=== PATIENT | female | born 1985 | race Caucasian/White ===

== ENCOUNTER 2019-12-29 12:57 | Outpatient (REF) | payer OTHER, SELFPAY ==
[2019-12-29 13:29] LABS: MANUAL DIFF FLAG NO
[2019-12-29 13:38] LABS: Basophils Absolute Auto 0.1 X10*3/uL (0.0-0.2); Basophils Percent Auto 0.6 % (0-2); Eosinophils Absolute Auto 0.2 X10*3/uL (0.0-0.4); Eosinophils Percent Auto 2.1 % (0-4); Hematocrit 39.8 % (37-47); Imm Gran Abs Auto 0.02 X10*3/uL (0.00-0.03); Imm Gran Pct Auto 0.2 % (0.0-0.4); Lymphocytes Absolute Auto 2.1 X10*3/uL (1.2-4.9); Lymphocytes Percent Auto 24.9 % (20-40); Mean Corpuscular HGB Conc 32.7 g/dl (31.0-35.0); Mean Corpuscular Hemoglobin 28.2 pg (27.0-33.0); Mean Corpuscular Volume 86.3 fL (80-98); Monocytes Absolute Auto 0.6 X10*3/uL (0.1-1.2); Monocytes Percent Auto 7.1 % (2-11); Neutrophils Absolute Auto 5.6 X10*3/uL (2.0-8.3); Neutrophils Percent Auto 65.1 % (45-73); Platelet Count 343 X10*3/uL (160-400); Red Blood Count 4.61 X10*6/uL (4.20-5.50); Red Cell Distribution Width 12.6 % (11.0-16.0); White Blood Count 8.6 X10*3/uL (4.8-10.8)
[2019-12-29 13:47] LABS: Alanine Aminotransferase 25 U/L (0-31); Albumin Level 4.2 g/dL (3.5-5.0); Alkaline Phosphatase 69 U/L (39-117); Anion Gap 10 (12-20); Aspartate Amino Transferase 20 U/L (5-31); Blood Urea Nitrogen 8 mg/dL (9-16); Calcium 8.8 mg/dL (8.4-10.2); Carbon Dioxide 26 mmol/L (22-29); Chloride 105 mmol/L (96-108); Cholesterol 156 mg/dL; Estimated Glomerular Filt Rate > 60; Glucose Random 89 mg/dL (60-115); HDL Cholesterol 40 mg/dL; LDL Cholesterol Calculated 103 mg/dl; Potassium 4.3 mmol/l (3.3-5.1); Sodium 137 mmol/L (135-145); Triglycerides 68 mg/dL
[2019-12-29 14:12] LABS: Thyroid Stimulating Hormone 3.25 mIU/mL (0.32-4.0)
== END 2019-12-29 12:58 | disposition home or self-care (01) ==
LOC: HO.LAB 12:57
PROVIDERS: PCP Internal Medicine; Visit Provider Internal Medicine
DX: Z00.00 Encounter for general adult medical examination without abnormal findings (principal); Z13.31 Encounter for screening for depression; E66.01 Morbid (severe) obesity due to excess calories; E89.0 Postprocedural hypothyroidism
CPT/HCPCS: 36415; 80053; 80061; 84443; 85025

== ENCOUNTER 2020-01-13 15:11 | Outpatient (REF) | payer OTHER, SELFPAY | END 2020-01-13 15:12 | disposition home or self-care (01) | LOC: HO.LAB 15:11 | PROVIDERS: Visit Provider Internal Medicine | DX: Z13.89 Encounter for screening for other disorder (principal) ==

== ENCOUNTER 2020-02-13 16:34 | Outpatient (REF) | payer OTHER, SELFPAY ==
[2020-02-13 17:55] LABS: Free T4 (Free Thyroxine) 1.06 ng/dL (0.71-1.85); HCG Quantitative 78 mIU/mL
[2020-02-19 00:22] LABS: FT4 by Equilib. Dialysis 1.5 ng/dL (0.9-2.2)
== END 2020-02-13 16:35 | disposition home or self-care (01) ==
LOC: HO.LAB 16:34
PROVIDERS: PCP Internal Medicine; Visit Provider Internal Medicine Endocrinology, Diabetes & Metabolism
DX: E03.9 Hypothyroidism, unspecified (principal)
CPT/HCPCS: 84439; 84443; 84702

== ENCOUNTER → 2020-02-14 10:29 | Outpatient (BNVA) | payer OTHER, SELFPAY | PROVIDERS: PCP Internal Medicine; Visit Provider Internal Medicine Endocrinology, Diabetes & Metabolism | DX: Z76.89 Persons encountering health services in other specified circumstances (principal) ==

== ENCOUNTER 2020-02-15 15:54 | Outpatient (REF) | payer OTHER, SELFPAY ==
[2020-02-15 17:11] LABS: HCG Quantitative 125 mIU/mL
== END 2020-02-15 15:55 | disposition home or self-care (01) ==
LOC: HO.LAB 15:54
PROVIDERS: PCP Internal Medicine; Visit Provider Internal Medicine
DX: Z32.01 Encounter for pregnancy test, result positive (principal); R11.0 Nausea
CPT/HCPCS: 84702

== ENCOUNTER → 2020-02-21 10:49 | Outpatient (BNVA) | payer OTHER, SELFPAY | PROVIDERS: PCP Internal Medicine; Visit Provider Advanced Practice Midwife | DX: Z76.89 Persons encountering health services in other specified circumstances (principal) ==

== ENCOUNTER 2020-02-22 15:46 | Outpatient (REF) | payer OTHER, SELFPAY ==
[2020-02-22 16:42] LABS: COVID-19 Test Negative (Negative); IDNOW Serial# 55D5AD1C
== END 2020-02-22 15:47 | disposition home or self-care (01) ==
LOC: HO.EMPCOV 15:46
PROVIDERS: Visit Provider Internal Medicine
DX: Z20.828 Contact with and (suspected) exposure to other viral communicable diseases (principal)
CPT/HCPCS: 87635; C9803

== ENCOUNTER 2020-03-02 13:51 | Outpatient (REF) | payer OTHER, SELFPAY ==
[2020-03-02 14:59] LABS: COVID-19 Test Negative (Negative)
== END 2020-03-02 13:52 | disposition home or self-care (01) ==
LOC: HO.LAB 13:51
PROVIDERS: PCP Internal Medicine; Visit Provider Internal Medicine
DX: Z20.828 Contact with and (suspected) exposure to other viral communicable diseases (principal)
CPT/HCPCS: 87635; C9803

== ENCOUNTER 2020-03-09 14:55 | Outpatient (RCR) | payer OTHER, SELFPAY ==
[2020-03-14 09:06] LABS: SARS-COV-2 PCR UMBRL Not Detected
[2020-03-27 09:51] LABS: SARS-COV-2 PCR UMBRL Not Detected
[2020-04-04 09:51] LABS: SARS-COV-2 PCR UMBRL NOT DETECTED
[2020-04-09 08:57] LABS: SARS-COV-2 PCR UMBRL NEGATIVE
[2020-04-13 11:04] LABS: SARS-COV-2 PCR UMBRL NEGATIVE
== END 2020-04-11 15:00 | disposition home or self-care (01) ==
LOC: HO.EMPCOV 14:55
PROVIDERS: Visit Provider Internal Medicine
DX: Z13.89 Encounter for screening for other disorder (principal)
CPT/HCPCS: 36415; 87635; C9803; U0003

== ENCOUNTER 2020-03-13 03:18 | Emergency (ER) | payer OTHER, SELFPAY ==
[2020-03-13 03:35] VITALS: BP 135/75; PULSE 79; RESP 18; TEMP 37; O2SAT 98; BMI 39.8
--- NOTE | 2020-03-13 04:00 | US_ITS ---
EXAMINATION: ULTRASOUND FIRST TRIMESTER CLINICAL INFORMATION: Vaginal bleeding. Threatened . COMPARISON: 08/10/2019. TECHNIQUE: Transabdominal and transvaginal imaging of the pelvis was performed. Transvaginal imaging was performed for further evaluation of the endometrium and adnexa. FINDINGS: A normal gravid uterus is identified. A single living intrauterine gestation is identified with a crown-rump length of 17 mm corresponding to 8 weeks 2 days. This is concordant with the age by dates of 8 weeks to days for an BAYLEE of 10/21/2020. A normal heart rate of 170 beats per minute is identified. Both ovaries are of normal size and echogenicity. The right measures 3.3 x 2.0 x 1.9 cm. This measurement includes an approximately 19 mm corpus luteum. The left measures 3.6 x 2.6 x 2.4 cm. This measurement includes an approximately 2 cm cyst. There is no pelvic free fluid. There is trace free fluid within the cervix. US/US OB <= 14 weeks fetus IMPRESSION: Normal single living intrauterine gestation with an BAYLEE of 10/21/2020..
[2020-03-13 04:04] LABS: UPreg QC Valid YES; Urine Pregnancy POSITIVE (NEGATIVE)
[2020-03-13 04:05] LABS: Appearance Urine CLEAR; Color Urine YELLOW; Glucose Urine UA NEG (NEG); Leukocyte Esterase Urine NEG (NEG); Nitrite Urine NEG (NEG); Specific Gravity - Urine 1.015 (1.005-1.025); Urine Blood 3+ (NEG); Urine Ketones NEG (NEG); Urine Protein NEG (NEG-TRACE)
[2020-03-13 04:12] LABS: Bacteria Urine TRACE /LPF; Squamous Epithelial Cell Urine 2+ /LPF; WBC Urine 0-2 /HPF (0-4)
[2020-03-13 04:54] LABS: Basophils Percent Auto 0.3 % (0-2); Eosinophils Absolute Auto 0.2 X10*3/uL (0.0-0.4); Eosinophils Percent Auto 1.7 % (0-4); Hematocrit 34.7 % (37-47); Imm Gran Abs Auto 0.04 X10*3/uL (0.00-0.03); Imm Gran Pct Auto 0.3 % (0.0-0.4); Lymphocytes Absolute Auto 1.9 X10*3/uL (1.2-4.9); Lymphocytes Percent Auto 14.4 % (20-40); MANUAL DIFF FLAG NO; Mean Corpuscular HGB Conc 34.6 g/dl (31.0-35.0); Mean Corpuscular Hemoglobin 28.6 pg (27.0-33.0); Mean Corpuscular Volume 82.8 fL (80-98); Mean Platelet Volume 11.2 fL (9.4-12.3); Monocytes Percent Auto 7.6 % (2-11); Neutrophils Percent Auto 75.7 % (45-73); Platelet Count 282 X10*3/uL (160-400); Red Blood Count 4.19 X10*6/uL (4.20-5.50); Red Cell Distribution Width 12.3 % (11.0-16.0); White Blood Count 13.2 X10*3/uL (4.8-10.8)
--- NOTE | 2020-03-13 05:05 | ED.FEMALEGU ---
HPI - Female Genitourinary General Chief complaint: Vaginal Bleeding Stated complaint: 8 weeks /bleeding Time Seen by Provider: 03/13/20 03:55 Source: patient Mode of arrival: ambulatory Limitations: no limitations History of Present Illness HPI Narrative: Patient 8 weeks no ultrasound done yet primi complaining of spotting when she wipes since last night with lower abdominal cramps. No dysuria. No history of miscarriages patient's blood type is O-positive MD elicited complaint: vaginal bleeding (Spotting) Onset (ago): hour(s) Severity: mild Quality of pain: cramping Vaginal discharge: none Vaginal bleeding: scant Exacerbating factors: none Relieving factors: none Associated symptoms: abdominal pain (Cramping) Related Data Previous Rx's Medication Instructions Recorded levothyroxine 112 mcg tablet 112 mcg PO DAILY 90 Days #90 tab 02/14/20 Allergies Allergy/AdvReac Type Severity Reaction Status Date / Time No Known Allergies Allergy Unverified 12/08/19 19:15 [No Known Allergies*] Review of Systems Review of Systems: Constitutional : No Weight loss, No Fever, No Chills ENT/Mouth : No sore throat, No Rhinorrhea Eyes: No Eye Pain, No Swelling Cardiovascular : No Chest Pain, no Dyspnea on Exertion, No Orthopnea, No Edema, No Palpitations, no SOB Respiratory : No Cough, No Sputum Gastrointestinal : no Nausea, No Vomiting, No Diarrhea, No Hematochezia, No Melena Genitourinary : No Dysuria, No Urinary Frequency Musculoskeletal : No joint pain, No Myalgias, No Joint Swelling Skin : No Skin Lesions, No rash Neuro : No Weakness, No Numbness, No Dizziness, No Headache Psych : No Anxiety/Panic, No Depression Heme/Lymph: No Bruising, No Lymphadenopathy Endocrine : No Polyuria, No Polydipsia All other systems reviewed and are negative PMFSH Past Medical History Medical History Elevated prolactin level History of Graves' disease Hypothyroidism Obesity Postablative hypothyroidism Vitamin D deficiency Surgical History Hx of cholecystectomy Family History Family History Father Hypertension Mother Thyroid disease Social History Social History Smoking Status: Never smoker Use of substances other than those prescribed or required for medical reasons: No Advance Directives: No Advance Directives Information Provided: No Physical Exam Vital Signs: Vital Signs: Last Vital Signs Temp 98.6 F 03/13/20 03:35 Pulse 79 03/13/20 03:35 Resp 18 03/13/20 03:35 BP 135/75 03/13/20 03:35 Pulse Ox 98 03/13/20 03:35 Body Mass Index 39.8 Appearance: Alert. Oriented X3. No acute distress. Eyes: Pupils equal, round and reactive to light. ENT: Pharynx normal. Neck: Normal inspection. Neck supple. CVS: Normal heart rate and rhythm. Pulses normal. Respiratory: No respiratory distress. Breath sounds normal. Abdomen: Soft and nontender. Bowel sounds are present, no mass palpable, no CVA tenderness Skin: Skin warm and dry. Normal skin color. Normal skin turgor. Extremities: No lower extremity edema. Neuro: Oriented X 3. No motor deficit. No sensory deficit. MDM - Female Genitourinary MDM Narrative Medical decision making narrative: Patient ultrasound showed IUP with normal heart beats small ovarian cyst both sites will discharge patient home advised to follow-up with OBG Differential Diagnosis Differential diagnosis: Likely urinary tract infection Lab Data Attestation: I reviewed the patient's lab results. Result diagrams: 03/13/20 04:47 03/13/20 04:47 Labs: Lab Results 03/13/20 03/13/20 03/13/20 Range/Units 03:58 04:47 04:47 WBC 13.2 H (4.8-10.8) X10*3/uL RBC 4.19 L (4.20-5.50) X10*6/uL Hgb 12.0 (12.0-16.0) g/dl Hct 34.7 L (37-47) % MCV 82.8 (80-98) fL MCH 28.6 (27.0-33.0) pg MCHC 34.6 (31.0-35.0) g/dl RDW 12.3 (11.0-16.0) % Plt Count 282 (160-400) X10*3/uL MPV 11.2 (9.4-12.3) fL Immature Gran % (Auto) 0.3 (0.0-0.4) % Neut % (Auto) 75.7 H (45-73) % Lymph % (Auto) 14.4 L (20-40) % [place] % (Auto) 7.6 (2-11) % Eos % (Auto) 1.7 (0-4) % Baso % (Auto) 0.3 (0-2) % Lymph # (Auto) 1.9 (1.2-4.9) X10*3/uL [place] # (Auto) 1.0 (0.1-1.2) X10*3/uL Eos # (Auto) 0.2 (0.0-0.4) X10*3/uL Baso # (Auto) 0.0 (0.0-0.2) X10*3/uL Abs Immat Gran (auto) 0.04 H (0.00-0.03) X10*3/uL Absolute Neuts (auto) 10.0 H (2.0-8.3) X10*3/uL Absolute Nucleated RBC 0.000 (0.0-0.012) X10*3/uL Nucleated RBC % (auto) 0.0 (0.0-0.2) /100WBC Sodium 135 (135-145) mmol/L Potassium 3.8 (3.3-5.1) mmol/l Chloride 105 (96-108) mmol/L Carbon Dioxide 21 L (22-29) mmol/L Anion Gap 13 (12-20) BUN 10 (9-16) mg/dL Creatinine 0.64 (0.5-1.4) mg/dL Estim Creat Clear Calc 138.6 Estimated GFR > 60 Random Glucose 98 (60-115) mg/dL Calcium 8.9 (8.4-10.2) mg/dL Beta HCG, Quant 84585 mIU/mL Urine Color YELLOW Urine Appearance CLEAR Urine pH 6.0 (5.0-8.0) Ur Specific [place] 1.015 (1.005-1.025) Urine Protein NEG (NEG-TRACE) MG/DL Urine Glucose (UA) NEG (NEG) MG/DL Urine Ketones NEG (NEG) MG/DL Urine Blood 3+ H (NEG) Urine Nitrite NEG (NEG) Ur Leukocyte Esterase NEG (NEG) Urine RBC 1-4 (0) /HPF Urine WBC 0-2 (0-4) /HPF Ur Squamous Epith Cells 2+ /LPF Urine Bacteria TRACE /LPF Urine Test POSITIVE H (NEGATIVE) Discharge Plan Discharge Clinical Impression: Threatened Ovarian cyst Qualifiers: Laterality: bilateral Qualified Code(s): N83.201 - Unspecified ovarian cyst, right side Patient Disposition: Home, Self-Care Instructions: Threatened Miscarriage (ED) Additional Instructions: Rest at home. Follow with OBG. Report to the ED/OB if increased vaginal bleed Tylenol for cramps Prescriptions: No Action levothyroxine 112 mcg tablet 112 mcg PO DAILY 90 Days Qty: 90 RF: 1 Stand Alone Forms: Work/School Release
[2020-03-13 05:27] LABS: Anion Gap 13 (12-20); Blood Urea Nitrogen 10 mg/dL (9-16); Calcium 8.9 mg/dL (8.4-10.2); Carbon Dioxide 21 mmol/L (22-29); Chloride 105 mmol/L (96-108); Creatinine Clr Calc Pharmacy 138.6; Estimated Glomerular Filt Rate > 60; Glucose Random 98 mg/dL (60-115); Potassium 3.8 mmol/l (3.3-5.1); Sodium 135 mmol/L (135-145)
--- NOTE | 2020-03-13 06:24 | US_ITS ---
EXAMINATION: ULTRASOUND FIRST TRIMESTER CLINICAL INFORMATION: Vaginal bleeding. Threatened . COMPARISON: 08/10/2019. TECHNIQUE: Transabdominal and transvaginal imaging of the pelvis was performed. Transvaginal imaging was performed for further evaluation of the endometrium and adnexa. FINDINGS: A normal gravid uterus is identified. A single living intrauterine gestation is identified with a crown-rump length of 17 mm corresponding to 8 weeks 2 days. This is concordant with the age by dates of 8 weeks to days for an BAYLEE of 10/21/2020. A normal heart rate of 170 beats per minute is identified. Both ovaries are of normal size and echogenicity. The right measures 3.3 x 2.0 x 1.9 cm. This measurement includes an approximately 19 mm corpus luteum. The left measures 3.6 x 2.6 x 2.4 cm. This measurement includes an approximately 2 cm cyst. There is no pelvic free fluid. There is trace free fluid within the cervix. US/US OB transvaginal IMPRESSION: Normal single living intrauterine gestation with an BAYLEE of 10/21/2020..
== END 2020-03-13 07:12 | disposition home or self-care (01) ==
PROVIDERS: Emergency Provider Internal Medicine; PCP Internal Medicine
DX: O20.0 Threatened abortion (principal); N83.201 Unspecified ovarian cyst, right side; Z3A.08 8 weeks gestation of pregnancy
CPT/HCPCS: 36415; 76801; 76817; 80048; 81001; 81025; 84702; 85025; 99284

== ENCOUNTER 2020-03-21 16:08 | Outpatient (REF) | payer OTHER, SELFPAY ==
[2020-03-21 17:23] LABS: Thyroid Stimulating Hormone 0.53 uIU/mL (0.32-4.0); Vitamin D 25-OH Total 25.9 ng/mL (>30)
[2020-03-22 22:32] LABS: Prolactin Undiluted 32.1 ng/mL
[2020-03-26 05:37] LABS: FT4 by Equilib. Dialysis 1.5 ng/dL (0.9-2.2)
== END 2020-03-21 16:09 | disposition home or self-care (01) ==
LOC: HO.LAB 16:08
PROVIDERS: PCP Internal Medicine Endocrinology, Diabetes & Metabolism; Visit Provider Internal Medicine Endocrinology, Diabetes & Metabolism
DX: E03.9 Hypothyroidism, unspecified (principal); E55.9 Vitamin D deficiency, unspecified; R79.89 Other specified abnormal findings of blood chemistry
CPT/HCPCS: 82306; 84146; 84439; 84443

== ENCOUNTER 2020-03-27 10:10 | Outpatient (REF) | payer OTHER, SELFPAY ==
[2020-03-27 16:52] LABS: MANUAL DIFF FLAG NO
[2020-03-27 16:55] LABS: Basophils Percent Auto 0.1 % (0-2); Eosinophils Absolute Auto 0.2 X10*3/uL (0.0-0.4); Eosinophils Percent Auto 1.4 % (0-4); Hematocrit 38.5 % (37-47); Hemoglobin 12.7 g/dl (12.0-16.0); Imm Gran Abs Auto 0.05 X10*3/uL (0.00-0.03); Imm Gran Pct Auto 0.4 % (0.0-0.4); Lymphocytes Absolute Auto 2.2 X10*3/uL (1.2-4.9); Lymphocytes Percent Auto 19.6 % (20-40); Mean Corpuscular Hemoglobin 28.3 pg (27.0-33.0); Mean Corpuscular Volume 85.9 fL (80-98); Mean Platelet Volume 10.9 fL (9.4-12.3); Monocytes Absolute Auto 0.8 X10*3/uL (0.1-1.2); Monocytes Percent Auto 7.2 % (2-11); Neutrophils Absolute Auto 8.2 X10*3/uL (2.0-8.3); Neutrophils Percent Auto 71.3 % (45-73); Platelet Count 311 X10*3/uL (160-400); Red Blood Count 4.48 X10*6/uL (4.20-5.50); Red Cell Distribution Width 12.2 % (11.0-16.0); White Blood Count 11.5 X10*3/uL (4.8-10.8)
[2020-03-27 18:13] LABS: Amphetamine Screen Urine Not Detected (Not Detect); Barbiturates, Urine Not Detected (Not Detect); Benzodiazepines Screen Urine Not Detected (Not Detect); Cannabinoid Screen Urine Not Detected (Not Detect); Cocaine Screen Urine Not Detected (Not Detect); Opiate Screen Urine Not Detected (Not Detect); Phencyclidine Screen Urine Not Detected (Not Detect)
[2020-03-28 04:15] LABS: Syphilis Screen Nonreactive (Nonreactive)
[2020-03-28 04:24] LABS: HIV AB/AG Nonreactive (Nonreactive); HIV Num 1 0.12 S/CO (0.00-0.99); ~HepC Num1 0.05 S/CO (0.00-0.79); ~Hepatitis C Antibody Nonreactive (Nonreactive)
[2020-03-28 04:31] LABS: HBsAGNum1 0.21 S/CO (0.00-0.99); Hepatitis B Surface Antigen Negative (Negative)
[2020-03-29 12:33] LABS: Rubella IgG Antibody 2.92 Index
== END 2020-03-27 10:11 | disposition home or self-care (01) ==
LOC: HO.LAB 10:10
PROVIDERS: PCP Internal Medicine; Visit Provider Advanced Practice Midwife
DX: O09.511 Supervision of elderly primigravida, first trimester (principal); O99.281 Endocrine, nutritional and metabolic diseases complicating pregnancy, first trimester; E03.9 Hypothyroidism, unspecified; Z3A.10 10 weeks gestation of pregnancy; Z79.899 Other long term (current) drug therapy
CPT/HCPCS: 80307; 85025; 86762; 86780; 86787; 86803; 86850; 86900; 86901; 87086; 87340; 87389; 99212

== ENCOUNTER 2020-04-03 10:29 | Outpatient (REF) | payer OTHER, SELFPAY ==
[2020-04-04 12:27] LABS: BV Int Neg Control Negative (Negative); BV Int Pos Control Positive (Positive)
[2020-04-05 18:52] LABS: C. trachomatis RNA TMA NOT DETECTED (NOT DETECTED); N. gonorrhoeae RNA TMA NOT DETECTED (NOT DETECTED)
== END 2020-04-03 10:30 | disposition home or self-care (01) ==
LOC: HO.LAB 10:29
PROVIDERS: PCP Internal Medicine; Visit Provider Advanced Practice Midwife
DX: Z34.01 Encounter for supervision of normal first pregnancy, first trimester (principal)
CPT/HCPCS: 36415; 81003; 87480; 87491; 87510; 87591; 87660; 99212

== ENCOUNTER 2020-04-06 09:28 | Outpatient (REF) | payer OTHER, SELFPAY ==
--- NOTE | 2020-04-06 09:35 | US_ITS ---
EXAMINATION: OBSTETRICAL ULTRASOUND, FIRST TRIMESTER HISTORY: 34-year-old at 11.5 weeks of gestation NT screening COMPARISON: 03/13/2020 TECHNIQUE: Real time transabdominal imaging with color and M-mode Doppler. FINDINGS: A single, live IUP CRL of 49.2 mm c/w 11.5wks is noted. Heart Rate: 155 beats per minute. Normal yolk sac seen. NT was 1.4.mm. NB Present The embryo appears sonographically wnl for this GA. Both maternal ovaries are seen and appear normal. GESTATIONAL AGE: 1. Established GA: 11.5 wks 2. GA from [facility]: 11.5 wks ESTIMATED DATE OF DELIVERY: 1. Established BAYLEE: 10/21/2020 2. BAYLEE from A: 10/21/2020 US/US OB 1T nuc measure IMPRESSION: 1. A single live IUP 2. Size equals dates 3. NT of 1.4 mm MFM Consultation: I reviewed the ultrasound findings along with significance of NT measurement. The NT of less than 3mm is generally reassuring. However, the sensitivity for T21 detection is only 60%. I reviewed the availability of serum aneuploidy screening which includes cell-free DNA and placental protein based tests. I discussed the sensitivity, false-positive rate, and other limitations associated with each test. I also reviewed the availability of invasive diagnostic tests that are associated small but definite risk of miscarriage. We also reviewed the differences between screening tests and diagnostic tests. After our discussion, she opted for the First trimester screening that is based on cell-free DNA or non-invasive testing (NIPT). Her hypothyroidism is currently well controlled on Levoxyl. Her TFTs should be monitored approximately every month. The result will be faxed to your office in approximately 7 days. A follow up at 18 weeks for survey has been scheduled. Thank you very much for this referral. Total time 30 min. (3,20,7)
[2020-04-06 12:59] LABS: Glucose 1 Hour PP 50gm Dose 104 mg/dL (60-140)
[2020-04-08 10:30] LABS: C. trachomatis RNA TMA NOT DETECTED
[2020-04-08 10:31] LABS: N. gonorrhoeae RNA TMA NOT DETECTED
== END 2020-04-06 09:29 | disposition home or self-care (01) ==
LOC: HO.US 09:28
PROVIDERS: PCP Internal Medicine; Visit Provider Advanced Practice Midwife
DX: O09.521 Supervision of elderly multigravida, first trimester (principal); Z3A.11 11 weeks gestation of pregnancy
CPT/HCPCS: 36415; 76813; 87491; 87591

== ENCOUNTER 2020-04-16 16:13 | Outpatient (REF) | payer OTHER, SELFPAY ==
[2020-04-16 18:26] LABS: Free T4 (Free Thyroxine) 1.05 ng/dL (0.71-1.85); Thyroid Stimulating Hormone 0.43 uIU/mL (0.32-4.0)
== END 2020-04-16 16:14 | disposition home or self-care (01) ==
LOC: HO.LAB 16:13
PROVIDERS: PCP Internal Medicine; Visit Provider Internal Medicine Endocrinology, Diabetes & Metabolism
DX: E89.0 Postprocedural hypothyroidism (principal)
CPT/HCPCS: 36415; 84439; 84443

== ENCOUNTER → 2020-04-24 09:59 | Outpatient (BNVA) | payer OTHER, SELFPAY | PROVIDERS: PCP Internal Medicine; Referring Provider Internal Medicine; Visit Provider Internal Medicine Endocrinology, Diabetes & Metabolism ==

== ENCOUNTER → 2020-05-01 10:29 | Outpatient (BNVA) | payer OTHER, SELFPAY | PROVIDERS: PCP Internal Medicine; Visit Provider Advanced Practice Midwife | DX: Z34.00 Encounter for supervision of normal first pregnancy, unspecified trimester (principal) | CPT/HCPCS: 81003; 99212 ==

== ENCOUNTER 2020-05-25 10:44 | Outpatient (REF) | payer OTHER, SELFPAY ==
--- NOTE | ~2020-05-25 | US_ITS ---
EXAMINATION: US OBSTETRICAL CLINICAL INFORMATION: 34-year-old at 18.5 weeks of gestation AMA Screening for anomaly COMPARISON: 04/06/2020 TECHNIQUE: Real-time transabdominal ultrasound was performed using C1-5 megahertz transducer. FINDINGS: A single, active, fetus is seen in vertex presentation. The placenta is posterior without previa, and the amniotic fluid volume is wnl. MEASUREMENTS: 1. Biparietal Diameter: 4.32 cm; 19.1 wks 2. Occipital Frontal Diameter: 5.9 cm 3. Head Circumference: 16.6 cm; 19.2 wks 4. Abdominal Circumference: 14.2 cm; 19.4 wks 5. Femur Length: 2.9 cm; 18.6 wks 6. Humerus Length: 2.9 cm; 19.3 wks 7. Tibia Length: 2.6 cm; 19.3 wks 8. Ulna Length: 2.7 cm; 20.0 wks 9. Lateral ventricle: 0.63 cm 10. Cerebellum: 1.95 cm; 20.0 wks 11. Cisterna Magna: 0.35 cm 12. Nuchal Fold: 3.22 mm 13. Heart Rate: 142 beats per minute Rt ovary: normal Lt ovary: normal Cervical length 4.2 cm on T/A. GESTATIONAL AGE: 1. Established GA: 18.5 wks 2. GA from [facility]: 19.2 wks ESTIMATED DATE OF DELIVERY: 1. Established BAYLEE: 10/21/2020 2. BAYLEE from [facility]: 10/17/2020 ANATOMY: The visualized anatomy includes but not limited to: 1. Cranium: Normal 2. Intracranial anatomy: cavum septum pellucidi, lateral ventricles, choroid plexus, cerebellum, posterior fossa, third and fourth ventricles. 3. face: orbits, lip/palate, profile, nasal bone 4. Heart: four-chamber view of the heart, ventricular septum, foramen ovale, pulmonary vein, left and right outflow tracts, three-vessel view, 3 vessel trachea view, aortic and ductal arches, situs.. 5. Diaphragm: Normal 6. Abdominal wall: Normal 7. Cord Insertion: Normal 8. Spine: Cervical, thoracic, lumbar, sacral. 9. Stomach: Normal size and shape 10. Right Kidney: Normal 11. Left Kidney: Normal 12. 3 vessel cord: Normal 13. Upper extremity: Open hands, fifth digit. 14. Lower extremity: Tibia, fibula, bilateral feet. 15. Bladder: Normal 16. Genitalia: Male, patient aware US/US OB /maternal detail IMPRESSION: 1. Single, living, intrauterine with appropriate biometry. 2. Normal survey DISCUSSION: I reviewed today's ultrasound findings. We discussed the limitations of ultrasound in diagnosing aneuploidy and other congenital abnormalities. I reviewed the differences between screening test and diagnostic test. Amniocentesis was discussed and declined. She was informed that the baseline incidence of congenital abnormalities is approximately 3-5%. Not all these conditions are diagnosable in utero. RECOMMENDATIONS: 1. Follow-up when necessary Thank you for allowing me to participate in her care. Total time 20 minutes. The time spent was devoted to counseling the patient about the disease and diagnosis, coordinating care including reviewing her records, pertinent lab data and studies, as well as discussing diagnostic evaluation and workup, plan therapeutic interventions and future disposition of care. This includes any additional research needed to obtain further information in formulating the plan of care of this patient. This note was generated with a voice recognition program. Please excuse any errors which may have been overlooked during my review of this note. Sometimes these errors may affect the content or meaning of a given sentence.
== END 2020-05-25 10:45 | disposition home or self-care (01) ==
LOC: HO.US 10:44
PROVIDERS: Visit Provider Advanced Practice Midwife
DX: Z36.3 Encounter for antenatal screening for malformations (principal); O35.9XX0 Maternal care for (suspected) fetal abnormality and damage, unspecified, not applicable or unspecified; O09.512 Supervision of elderly primigravida, second trimester; Z3A.18 18 weeks gestation of pregnancy
CPT/HCPCS: 76811

== ENCOUNTER → 2020-05-29 11:37 | Outpatient (BNVA) | payer OTHER, SELFPAY | PROVIDERS: PCP Internal Medicine; Visit Provider Advanced Practice Midwife | CPT/HCPCS: 99212 ==

== ENCOUNTER 2020-06-18 15:03 | Outpatient (REF) | payer MEDICAID, SELFPAY ==
[2020-06-18 16:51] LABS: Free T4 (Free Thyroxine) 0.91 ng/dL (0.71-1.85); Thyroid Stimulating Hormone 0.22 uIU/mL (0.32-4.0)
[2020-06-19 08:59] LABS: CT PCR NOT DETECTED (Not Detect.); NG PCR NOT DETECTED (Not Detect.)
[2020-06-19 09:11] LABS: Prolactin 145.2 ng/mL
== END 2020-06-18 15:04 | disposition home or self-care (01) ==
LOC: HO.LAB 15:03
PROVIDERS: Advanced Practice Midwife; PCP Internal Medicine; Visit Provider Internal Medicine Endocrinology, Diabetes & Metabolism
DX: E55.9 Vitamin D deficiency, unspecified (principal); R79.89 Other specified abnormal findings of blood chemistry; E89.0 Postprocedural hypothyroidism; Z20.2 Contact with and (suspected) exposure to infections with a predominantly sexual mode of transmission
CPT/HCPCS: 36415; 82306; 84146; 84439; 84443; 87491; 87591

== ENCOUNTER → 2020-06-26 10:11 | Outpatient (BNVA) | payer MEDICAID, SELFPAY | PROVIDERS: PCP Internal Medicine; Visit Provider Advanced Practice Midwife | DX: Z34.92 Encounter for supervision of normal pregnancy, unspecified, second trimester (principal); Z3A.23 23 weeks gestation of pregnancy | CPT/HCPCS: 81003; 99212 ==

== ENCOUNTER → 2020-06-29 09:08 | Outpatient (BNVA) | payer MEDICAID, SELFPAY | PROVIDERS: PCP Internal Medicine; Visit Provider Internal Medicine Endocrinology, Diabetes & Metabolism | DX: E89.0 Postprocedural hypothyroidism (principal); E55.9 Vitamin D deficiency, unspecified; E66.9 Obesity, unspecified; R79.89 Other specified abnormal findings of blood chemistry; Z86.39 Personal history of other endocrine, nutritional and metabolic disease | CPT/HCPCS: 99212 ==

== ENCOUNTER 2020-07-15 11:49 | Emergency (ER) | payer MEDICAID, SELFPAY ==
--- NOTE | 2020-07-15 | ECG_ITS ---
Test Reason : CHEST PAIN Blood Pressure : / mmHG Vent. Rate : 075 BPM Atrial Rate : 075 BPM P-R Int : 132 ms QRS Dur : 084 ms QT Int : 392 ms P-R-T Axes : 025 028 023 degrees QTc Int : 437 ms Normal sinus rhythm with sinus arrhythmia Normal ECG No previous ECGs available Referred By: Generic ED Physician Electronically Signed By:ANALY LEON MD
--- NOTE | ~2020-07-15 | XR_ITS ---
EXAMINATION: XR CHEST CLINICAL INFORMATION: Chest pain and shortness of breath. COMPARISON: None TECHNIQUE: 2 views of the chest were obtained. FINDINGS: No significant abnormality is noted involving the heart, lungs, mediastinum, bony thorax or soft tissues. XR/XR chest 2V IMPRESSION: Unremarkable examination.
--- NOTE | ~2020-07-15 | US_ITS ---
EXAMINATION: US VENOUS ULTRASOUND WITH DOPPLER LOWER EXTREMITY, BILATERAL CLINICAL INFORMATION: Elevated d-dimer. Rule out deep venous thrombosis. COMPARISON: December 13, 2018 TECHNIQUE: Ultrasound of the deep veins is performed from the hip to the calf with compression sonography and color and pulse Doppler assessment. Spectral analysis with color-flow imaging is performed. FINDINGS: RIGHT: There is normal venous compression and respiratory variation and augmented flow. The visualized common femoral vein, superficial femoral vein, profunda femoral vein, popliteal vein, and the trifurcation region shows no evidence of deep venous thrombosis. No popliteal artery aneurysm. No popliteal fossa cyst. LEFT: There is normal venous compression and respiratory variation and augmented flow. The visualized common femoral vein, superficial femoral vein, profunda femoral vein, popliteal vein, and the trifurcation region shows no evidence of deep venous thrombosis. There is no significant popliteal fossa cyst. No pump to artery aneurysm. If the patient's symptoms persist, followup ultrasound in 5 days 7 days might be of value to exclude proximal propagation from a non-visualized calf vein. US/US venous duplex LE BI IMPRESSION: No acute DVT demonstrated in the bilateral lower extremity.
[2020-07-15 12:03] VITALS: BP 108/58; PULSE 84; RESP 85; TEMP 36.6; O2SAT 98; BMI 41.5
--- NOTE | 2020-07-15 12:17 | ED.CHESTPAIN ---
HPI - Chest Pain General Chief Complaint: Chest Pain Stated Complaint: chest pain - yellow hand 26wks preg Time Seen by Provider: 07/15/20 12:11 Source: patient Mode of arrival: ambulatory Limitations: no limitations History of Present Illness HPI narrative: 34-year-old female with a past medical history of hypothyroidism here with complaints of chest pain which she describes as a poking pain which is intermittent and worsened with moving since 05:00. Patient tells me that she was sleeping and she woke up with the pain. She feels that when she moves around and she has some mild shortness of breath associated with it. Pain is not worsened with deep breathing or coughing. There is no associated cough, leg swelling, leg pain. No dizziness, nausea, vomiting, headache. Also c/o yellowing to bilateral hands x 3 days with itching. No swelling. Did use a new hand lotion prior to this beginning. She is currently 26 weeks . BAYLEE October 21. Per patient normal to this point, followed here by the midwives(Maria C Farr). She denies any -related complaints. She is a MD complaint: chest pain Related Data Home Medications Medication Instructions Recorded Confirmed vitamin with calcium 1 tab PO DAILY 03/27/20 06/29/20 no.72-iron 27 mg-folic acid 1 mg tablet Previous Rx's Medication Instructions Recorded aspirin 81 mg chewable tablet 162 mg PO DAILY 30 Days #60 tab 04/23/20 levothyroxine 112 mcg tablet 112 mcg PO DAILY 90 Days #90 tab 06/29/20 Allergies Allergy/AdvReac Type Severity Reaction Status Date / Time No Known Allergies Allergy Verified 05/29/20 11:38 [No Known Allergies*] Review of Systems Review of Systems: Yes all other systems are reviewed and are negative Constitutional: Constitutional: Reports no additional constitutional complaints, Denies body ache(s), Denies chills, Denies fever(s), Denies headache(s) and Denies weakness Eyes: Eyes: Reports no additional eye complaints and Denies change in vision ENT: Reports system reviewed and no additional complaints, except as documented, Denies dizziness, Denies headache(s), Denies nasal congestion, Denies nasal discharge and Denies neck pain Cardiovascular: Cardiovascular: Reports no additional cardiovascular complaints, Reports chest pain, Denies leg edema and Reports dyspnea Respiratory: Respiratory: Reports no additional respiratory complaints, Denies cough and Reports dyspnea Gastrointestinal: Gastrointestinal: Reports no additional gastrointestinal complaints, Denies abdominal pain, Denies diarrhea, Denies nausea and Denies vomiting Genitourinary: Genitourinary: Reports no additional female genitourinary complaints and Denies urinary incontinence Musculoskeletal: Musculoskeletal: Reports no additional musculoskeletal complaints, Denies back pain, Denies arthralgias, Denies joint swelling, Denies neck pain, Denies numbness and Denies tingling Integumentary/Breasts: Skin/Breast: Reports system reviewed and no additional complaints, except as docu and Denies rash Neurologic: Reports system reviewed and no additional complaints, except as documented, Denies Abnormal speech present, Denies dizziness, Denies headache(s), Denies numbness, Denies tingling and Denies weakness PMFSH Past Medical History Attestation statement: The following information was validated with the patient. Source: old records reviewed and nursing notes reviewed Medical History Elevated prolactin level History of Graves' disease Hypothyroidism Obesity Postablative hypothyroidism Vitamin D deficiency Surgical History Hx of cholecystectomy Family History Family History Father Hypertension Mother Thyroid disease Maternal Grandmother Family history of diabetes mellitus (DM) Hypertension Thyroid disease Paternal Grandmother Hypertension Paternal Grandfather No problems noted. Brother No problems noted. Brother No problems noted. Brother No problems noted. Social History Social History Household Members: Spouse Housing: Apartment Alcohol intake: former Smoking Status: Never smoker Smoked in Last 30 Days: No Use of substances other than those prescribed or required for medical reasons: No Advance Directives: No Advance Directives Information Provided: No Physical Exam Vital Signs: Vital Signs: Last Vital Signs Temp 98 F 07/15/20 12:03 Pulse 70 07/15/20 12:37 Resp 20 07/15/20 12:37 BP 109/43 L 07/15/20 12:37 Pulse Ox 96 07/15/20 12:37 Body Mass Index 41.5 Const: General: cooperative, healthy appearing, comfortable and no acute distress Orientation/consciousness: patient oriented x3 Limitations: no limitations HENMT: Head: Yes normal to inspection Ears: hearing grossly normal bilaterally General nose exam: Normal external nose present Face and sinus: Yes normal facial exam Mouth: Normal oral and palatal mucosa present Throat: Yes posterior oropharynx normal Eyes: General: appearance normal, both eyes and all related structures Pupils: Equal, round and reactive pupils present Neck: Neck: Yes normal visual inspection Chest: Chest palpation & inspection: normal inspection of the chest and tenderness (central chest tender to palp) Resp: Effort & Inspection: normal respiratory effort Auscultation: clear to auscultation bilaterally Cardio: Rate: regular rate Rhythm: regular rhythm Peripheral pulses: Peripheral pulses 2+ throughout GI: Other: +gravid abdomen Inspection: Yes normal to inspection Palpation (GI): Soft to palpation and nontender Auscultation: normal bowel sounds Back/Spine/Pelvis: Thoracic/Lumbar Spine: thoracic and lumbar spine normal to inspection Skin: General skin exam: no rashes or lesions noted Neuro: General: patient oriented x3, no focal motor deficits and normal sensation to monofilament Cranial nerves: Yes Equal, round and reactive pupils present Cognition (Neuro): normal cognition Speech: No Abnormal speech present Gait exam (Neuro): Normal gait present Motor exam (neuro): 5/5 motor strength present throughout Extrem: Other: areas of hyperpigmentation over the bilateral dorsal aspects of the hands General: Yes normal to inspection, Yes no pedal edema and Yes no calf tenderness Course Course Course Narrative: 34 yo female with a past medical history of hypothyroidism currently 26 weeks here with complaints of intermittent CP worsened with moving, palpation and associated TERAN. No other symptoms. Well appearing on arrival. HD stable. No leg swelling or pain. Also c/o discoloration to hands x 3 days which is consistent with melasma. Will need labs, EKG, CXR, COVID screen, FHR. 1330-Labs unremarkable. EKG shows no evidence of right heart strain or ST changes. CXR unremarkable. COVID screen. FHR 155. Discussed with Dr Whitlock with plan for d dimer, bilateral doppler US to r/o DVT. [id number] only mildly elevated. Venous ultrasound bilateral negative for DVT. Discussed case with Dr. Whitlock. Less likely PE with exertional chest pain/SOB, no tachypnea on exam, no tachycardia or hypoxia with a negative venous ultrasound for DVT. Reviewed findings with the patient. Recommended follow-up with OB. Reviewed worrisome signs and symptoms and when to return to the emergency department. Comfortable discharge home. MDM - Chest Pain MDM Narrative Medical decision making narrative: PE, PNA, ACS, chest wall pain Less likely pneumonia with negative chest x-ray Less likely ACS with symptoms greater than 8 hours, negative troponin EKG Medical Records Data Attestation: I reviewed the patient's medical records. Lab Data Attestation: I reviewed the patient's lab results. Result diagrams: 07/15/20 12:45 07/15/20 12:45 Labs: Lab Results 07/15/20 07/15/20 07/15/20 Range/Units 12:45 12:45 12:45 WBC 12.0 H (4.8-10.8) X10*3/uL RBC 3.88 L (4.20-5.50) X10*6/uL Hgb 11.4 L (12.0-16.0) g/dl Hct 34.1 L (37-47) % MCV 87.9 (80-98) fL MCH 29.4 (27.0-33.0) pg MCHC 33.4 (31.0-35.0) g/dl RDW 13.0 (11.0-16.0) % Plt Count 280 (160-400) X10*3/uL MPV 10.7 (9.4-12.3) fL Immature Gran % (Auto) 0.6 H (0.0-0.4) % Neut % (Auto) 76.3 H (45-73) % Lymph % (Auto) 14.7 L (20-40) % [place] % (Auto) 6.8 (2-11) % Eos % (Auto) 1.4 (0-4) % Baso % (Auto) 0.2 (0-2) % Lymph # (Auto) 1.8 (1.2-4.9) X10*3/uL [place] # (Auto) 0.8 (0.1-1.2) X10*3/uL Eos # (Auto) 0.2 (0.0-0.4) X10*3/uL Baso # (Auto) 0.0 (0.0-0.2) X10*3/uL Abs Immat Gran (auto) 0.07 H (0.00-0.03) X10*3/uL Absolute Neuts (auto) 9.2 H (2.0-8.3) X10*3/uL Absolute Nucleated RBC 0.000 (0.0-0.012) X10*3/uL Nucleated RBC % (auto) 0.0 (0.0-0.2) /100WBC PT 12.7 (10.8-13.0) SEC INR 1.1 (0.9-1.1) APTT 32.8 (24.1-38.0) SEC D-Dimer 340 NG/ML Sodium 136 (135-145) mmol/L Potassium 3.8 (3.3-5.1) mmol/L Chloride 106 (96-108) mmol/L Carbon Dioxide 20 L (22-29) mmol/L Anion Gap 14 (12-20) BUN 4 L D (9-16) mg/dL Creatinine 0.58 (0.5-1.4) mg/dL Estim Creat Clear Calc 150.8 Estimated GFR > 60 Random Glucose 76 (60-115) mg/dL Calcium 8.4 (8.4-10.2) mg/dL Magnesium 1.7 (1.6-2.6) mg/dL Total Bilirubin 0.6 (0.0-1.0) mg/dL Direct Bilirubin 0.2 (0.0-0.5) mg/dL AST 13 (5-31) U/L ALT 15 (0-31) U/L Alkaline Phosphatase 70 (39-117) U/L Troponin I High Sens (<3.5-17.0) ng/L B-Natriuretic Peptide (<100) pg/mL Total Protein 5.8 L (6.5-8.0) g/dL Albumin 3.3 L D (3.5-5.0) g/dL COVID-19 (IVETTE) (Negative) COVID-19 Clin Com 07/15/20 07/15/20 Range/Units 12:45 12:46 WBC (4.8-10.8) X10*3/uL RBC (4.20-5.50) X10*6/uL Hgb (12.0-16.0) g/dl Hct (37-47) % MCV (80-98) fL MCH (27.0-33.0) pg MCHC (31.0-35.0) g/dl RDW (11.0-16.0) % Plt Count (160-400) X10*3/uL MPV (9.4-12.3) fL Immature Gran % (Auto) (0.0-0.4) % Neut % (Auto) (45-73) % Lymph % (Auto) (20-40) % [place] % (Auto) (2-11) % Eos % (Auto) (0-4) % Baso % (Auto) (0-2) % Lymph # (Auto) (1.2-4.9) X10*3/uL [place] # (Auto) (0.1-1.2) X10*3/uL Eos # (Auto) (0.0-0.4) X10*3/uL Baso # (Auto) (0.0-0.2) X10*3/uL Abs Immat Gran (auto) (0.00-0.03) X10*3/uL Absolute Neuts (auto) (2.0-8.3) X10*3/uL Absolute Nucleated RBC (0.0-0.012) X10*3/uL Nucleated RBC % (auto) (0.0-0.2) /100WBC PT (10.8-13.0) SEC INR (0.9-1.1) APTT (24.1-38.0) SEC D-Dimer NG/ML Sodium (135-145) mmol/L Potassium (3.3-5.1) mmol/L Chloride (96-108) mmol/L Carbon Dioxide (22-29) mmol/L Anion Gap (12-20) BUN (9-16) mg/dL Creatinine (0.5-1.4) mg/dL Estim Creat Clear Calc Estimated GFR Random Glucose (60-115) mg/dL Calcium (8.4-10.2) mg/dL Magnesium (1.6-2.6) mg/dL Total Bilirubin (0.0-1.0) mg/dL Direct Bilirubin (0.0-0.5) mg/dL AST (5-31) U/L ALT (0-31) U/L Alkaline Phosphatase (39-117) U/L Troponin I High Sens < 3.5 (<3.5-17.0) ng/L B-Natriuretic Peptide < 10 (<100) pg/mL Total Protein (6.5-8.0) g/dL Albumin (3.5-5.0) g/dL COVID-19 (IVETTE) Negative (Negative) COVID-19 Clin Com See Note Imaging Data Chest x-ray: Attestation: I personally reviewed and interpreted this imaging study as follows: Radiologist's impression: EXAMINATION: XR CHEST CLINICAL INFORMATION: Chest pain and shortness of breath. COMPARISON: None TECHNIQUE: 2 views of the chest were obtained. FINDINGS: No significant abnormality is noted involving the heart, lungs, mediastinum, bony thorax or soft tissues. XR/XR chest 2V IMPRESSION: Unremarkable examination. Venous US: Attestation: I personally reviewed and interpreted this imaging study as follows: Radiologist's impression: EXAMINATION: US VENOUS ULTRASOUND WITH DOPPLER LOWER EXTREMITY, BILATERAL CLINICAL INFORMATION: Elevated d-dimer. Rule out deep venous thrombosis. COMPARISON: December 13, 2018 TECHNIQUE: Ultrasound of the deep veins is performed from the hip to the calf with compression sonography and color and pulse Doppler assessment. Spectral analysis with color-flow imaging is performed. FINDINGS: RIGHT: There is normal venous compression and respiratory variation and augmented flow. The visualized common femoral vein, superficial femoral vein, profunda femoral vein, popliteal vein, and the trifurcation region shows no evidence of deep venous thrombosis. No popliteal artery aneurysm. No popliteal fossa cyst. LEFT: There is normal venous compression and respiratory variation and augmented flow. The visualized common femoral vein, superficial femoral vein, profunda femoral vein, popliteal vein, and the trifurcation region shows no evidence of deep venous thrombosis. There is no significant popliteal fossa cyst. No pump to artery aneurysm. If the patient's symptoms persist, followup ultrasound in 5 days 7 days might be of value to exclude proximal propagation from a non-visualized calf vein. US/US venous duplex LE BI IMPRESSION: No acute DVT demonstrated in the bilateral lower extremity. ECG Data ECG #1: Attestation: I personally reviewed and interpreted this ECG as follows: ECG interpretation date: 07/15/20 ECG interpretation time: 11:55 Interpretation: NSR with SA rate 75, normal pr, normal qrs, normal qtc, normal st segment Discharge Plan Discharge Clinical Impression: Atypical chest pain, Melasma Patient Disposition: Home, Self-Care Instructions: Chest Wall Pain (ED), Melasma (DC) Additional Instructions: Return for severe symptoms Follow-up with OB this week Prescriptions: No Action aspirin 81 mg tablet,chewable 162 mg PO DAILY 30 Days Qty: 60 RF: 3 levothyroxine 112 mcg tablet 112 mcg PO DAILY 90 Days Qty: 90 RF: 1 Vitamin Plus Low Iron 27 mg iron- 1 mg tablet 1 tab PO DAILY RF: 0 Referrals: Edilma Reagan MD [Primary Care Provider] - 2 days Interventions: ED Discharge Assessment Last Done: 07/15/20 15:12 Discharge Date/Time: 07/15/20 15:12
[2020-07-15 12:37] VITALS: BP 109/43; PULSE 70; RESP 20; O2SAT 96
[2020-07-15 12:50] LABS: MANUAL DIFF FLAG NO
[2020-07-15 12:51] LABS: Basophils Percent Auto 0.2 % (0-2); Eosinophils Absolute Auto 0.2 X10*3/uL (0.0-0.4); Eosinophils Percent Auto 1.4 % (0-4); Hematocrit 34.1 % (37-47); Hemoglobin 11.4 g/dl (12.0-16.0); Imm Gran Abs Auto 0.07 X10*3/uL (0.00-0.03); Imm Gran Pct Auto 0.6 % (0.0-0.4); Lymphocytes Absolute Auto 1.8 X10*3/uL (1.2-4.9); Lymphocytes Percent Auto 14.7 % (20-40); Mean Corpuscular HGB Conc 33.4 g/dl (31.0-35.0); Mean Corpuscular Hemoglobin 29.4 pg (27.0-33.0); Mean Corpuscular Volume 87.9 fL (80-98); Mean Platelet Volume 10.7 fL (9.4-12.3); Monocytes Absolute Auto 0.8 X10*3/uL (0.1-1.2); Monocytes Percent Auto 6.8 % (2-11); Neutrophils Absolute Auto 9.2 X10*3/uL (2.0-8.3); Neutrophils Percent Auto 76.3 % (45-73); Platelet Count 280 X10*3/uL (160-400); Red Blood Count 3.88 X10*6/uL (4.20-5.50)
[2020-07-15 13:07] LABS: INTERNATIONAL NORM RATIO 1.1 (0.9-1.1); Prothrombin Time 12.7 SEC (10.8-13.0)
[2020-07-15 13:10] LABS: Partial Thromboplastin Time 32.8 SEC (24.1-38.0)
[2020-07-15 13:12] LABS: COVID-19 Test Negative (Negative); IDNOW Serial# 9DD0AD1C
[2020-07-15 13:16] LABS: Alanine Aminotransferase 15 U/L (0-31); Albumin Level 3.3 g/dL (3.5-5.0); Alkaline Phosphatase 70 U/L (39-117); Anion Gap 14 (12-20); Aspartate Amino Transferase 13 U/L (5-31); Bilirubin Direct 0.2 mg/dL (0.0-0.5); Bilirubin Total 0.6 mg/dL (0.0-1.0); Blood Urea Nitrogen 4 mg/dL (9-16); Calcium 8.4 mg/dL (8.4-10.2); Carbon Dioxide 20 mmol/L (22-29); Chloride 106 mmol/L (96-108); Creatinine Clr Calc Pharmacy 150.8; Estimated Glomerular Filt Rate > 60; Glucose Random 76 mg/dL (60-115); Magnesium 1.7 mg/dL (1.6-2.6); Potassium 3.8 mmol/L (3.3-5.1); Sodium 136 mmol/L (135-145); Total Protein 5.8 g/dL (6.5-8.0)
[2020-07-15 13:20] LABS: B Type Natriuretic Peptide < 10 pg/mL (<100); Troponin-I High Sensitivity < 3.5 ng/L (<3.5-17.0)
[2020-07-15 13:33] LABS: D Dimer 340 NG/ML
== END 2020-07-15 15:12 | disposition home or self-care (01) ==
PROVIDERS: Nurse Practitioner Family; Emergency Provider Emergency Medicine; PCP Internal Medicine
DX: O99.412 Diseases of the circulatory system complicating pregnancy, second trimester (principal); R07.89 Other chest pain; O99.712 Diseases of the skin and subcutaneous tissue complicating pregnancy, second trimester; L81.1 Chloasma; Z3A.26 26 weeks gestation of pregnancy
CPT/HCPCS: 36415; 71046; 80048; 80076; 83735; 83880; 84484; 85025; 85379; 85610; 85730; 87635; 93005; 93970; 99284; 99285

== ENCOUNTER → 2020-07-24 10:21 | Outpatient (BNVA) | payer MEDICAID, SELFPAY | PROVIDERS: PCP Internal Medicine; Visit Provider Advanced Practice Midwife | DX: O36.62X0 Maternal care for excessive fetal growth, second trimester, not applicable or unspecified (principal); Z3A.27 27 weeks gestation of pregnancy | CPT/HCPCS: 81003; 99212 ==

== ENCOUNTER 2020-07-31 11:15 | Outpatient (REF) | payer MEDICAID, SELFPAY ==
[2020-07-31 13:33] LABS: Hematocrit 35.9 % (37-47); Hemoglobin 11.8 g/dl (12.0-16.0); Mean Corpuscular HGB Conc 32.9 g/dl (31.0-35.0); Mean Corpuscular Hemoglobin 29.1 pg (27.0-33.0); Mean Corpuscular Volume 88.6 fL (80-98); Mean Platelet Volume 11.6 fL (9.4-12.3); Platelet Count 276 X10*3/uL (160-400); Red Blood Count 4.05 X10*6/uL (4.20-5.50); Red Cell Distribution Width 12.7 % (11.0-16.0); White Blood Count 11.5 X10*3/uL (4.8-10.8)
[2020-07-31 13:40] LABS: Glucose 1 Hour PP 50gm Dose 106 mg/dL (60-140)
[2020-07-31 14:08] LABS: Free T4 (Free Thyroxine) 0.88 ng/dL (0.71-1.85); Thyroid Stimulating Hormone 0.22 uIU/mL (0.32-4.0)
[2020-08-01 08:17] LABS: Prolactin 191.3 ng/mL
[2020-08-01 09:20] LABS: Syphilis Screen Nonreactive (Nonreactive)
== END 2020-07-31 11:16 | disposition home or self-care (01) ==
LOC: HO.LAB 11:15
PROVIDERS: Absent Provider Advanced Practice Midwife; PCP Internal Medicine; Visit Provider Internal Medicine Endocrinology, Diabetes & Metabolism
DX: O99.281 Endocrine, nutritional and metabolic diseases complicating pregnancy, first trimester (principal); E89.0 Postprocedural hypothyroidism; O26.891 Other specified pregnancy related conditions, first trimester; R79.89 Other specified abnormal findings of blood chemistry; Z3A.12 12 weeks gestation of pregnancy
CPT/HCPCS: 36415; 84146; 84439; 84443; 85027; 86780

== ENCOUNTER 2020-08-03 14:17 | Outpatient (REF) | payer MEDICAID, SELFPAY ==
--- NOTE | ~2020-08-03 | US_ITS ---
EXAMINATION: OBSTETRICAL ULTRASOUND, Follow up HISTORY: 24-year-old at the 28.5 weeks of gestation High BMI Size date the discrepancy COMPARISON: 05/25/2020 TECHNIQUE: Real time transabdominal imaging with color and M-mode Doppler. PRESENTATION: Vertex PLACENTA LOCATION: Posterior without previa AMNIOTIC FLUID: HOLGER 15.0 cm MEASUREMENTS: 1. Biparietal Diameter: 7.8 cm; 31.4 wks 2. Head Circumference: 27.9 cm; 30.4 wks 3. Abdominal Circumference: 24.7 cm; 29.0 wks 4. Femur Length: 5.5 cm; 29.2 wks 5. Heart Rate: 142 beats per minute WEIGHT: EFW: 1378 grams (3 lbs 1 oz) -- 61 %. BIOPHYSICAL PROFILE: Motion: 2 Tone: 2 Breathin Amniotic Fluid: 2 Total score: 8/8 GESTATIONAL AGE: 1. Established GA: 28.5 wks 2. GA from AUA: 30.1 wks ESTIMATED DATE OF DELIVERY: 1. Established BAYLEE: 10/21/2020 2. BAYLEE from [facility]: 10/11/2020 US/US OB follow up IMPRESSION: 1. A single active fetus is in vertex presentation 2. Size equals dates 3. Reassuring biophysical profile Thank you very much for this referral. This note was generated with a voice recognition program. Please excuse any errors which may have been overlooked during my review of this note. Sometimes these errors may affect the content or meaning of a given sentence.
== END 2020-08-03 14:18 | disposition home or self-care (01) ==
LOC: HO.US 14:17
PROVIDERS: Visit Provider Advanced Practice Midwife
DX: O99.213 Obesity complicating pregnancy, third trimester (principal); Z3A.28 28 weeks gestation of pregnancy; E66.9 Obesity, unspecified
CPT/HCPCS: 76816

== ENCOUNTER → 2020-08-07 10:26 | Outpatient (BNVA) | payer MEDICAID, SELFPAY | PROVIDERS: PCP Internal Medicine; Visit Provider Advanced Practice Midwife | DX: Z34.93 Encounter for supervision of normal pregnancy, unspecified, third trimester (principal); Z3A.29 29 weeks gestation of pregnancy | CPT/HCPCS: 81003; 99212 ==

== ENCOUNTER → 2020-08-10 13:37 | Outpatient (BNVA) | payer MEDICAID, SELFPAY | PROVIDERS: PCP Internal Medicine; Visit Provider Internal Medicine Endocrinology, Diabetes & Metabolism | DX: E89.0 Postprocedural hypothyroidism (principal); E55.9 Vitamin D deficiency, unspecified; R79.89 Other specified abnormal findings of blood chemistry; E66.9 Obesity, unspecified; Z86.39 Personal history of other endocrine, nutritional and metabolic disease | CPT/HCPCS: 99212 ==

== ENCOUNTER → 2020-08-22 09:54 | Outpatient (BNVA) | payer MEDICAID, SELFPAY | PROVIDERS: PCP Internal Medicine; Visit Provider Advanced Practice Midwife | DX: Z34.93 Encounter for supervision of normal pregnancy, unspecified, third trimester (principal) | CPT/HCPCS: 81003; 90471; 90715; 99212 ==

== ENCOUNTER → 2020-09-03 10:47 | Outpatient (BNVA) | payer MEDICAID, SELFPAY | PROVIDERS: PCP Internal Medicine; Visit Provider Advanced Practice Midwife | DX: Z34.93 Encounter for supervision of normal pregnancy, unspecified, third trimester (principal); Z3A.33 33 weeks gestation of pregnancy | CPT/HCPCS: 81003; 99212 ==

== ENCOUNTER 2020-09-19 10:51 | Outpatient (REF) | payer MEDICAID, SELFPAY ==
[2020-09-19 15:32] LABS: Free T4 (Free Thyroxine) 0.74 ng/dL (0.71-1.85); Thyroid Stimulating Hormone 1.64 uIU/mL (0.32-4.0)
== END 2020-09-19 10:52 | disposition home or self-care (01) ==
LOC: HO.LAB 10:51
PROVIDERS: PCP Internal Medicine; Referring Provider Internal Medicine Endocrinology, Diabetes & Metabolism; Visit Provider Advanced Practice Midwife
DX: O26.893 Other specified pregnancy related conditions, third trimester (principal); E03.9 Hypothyroidism, unspecified; Z3A.35 35 weeks gestation of pregnancy
CPT/HCPCS: 36415; 81003; 84439; 84443; 99212

== ENCOUNTER → 2020-09-21 10:10 | Outpatient (BNVA) | payer MEDICAID, SELFPAY | PROVIDERS: PCP Internal Medicine; Visit Provider Internal Medicine Endocrinology, Diabetes & Metabolism | DX: E89.0 Postprocedural hypothyroidism (principal); E55.9 Vitamin D deficiency, unspecified; E66.9 Obesity, unspecified; R79.89 Other specified abnormal findings of blood chemistry; Z86.39 Personal history of other endocrine, nutritional and metabolic disease | CPT/HCPCS: 99212 ==

== ENCOUNTER 2020-09-26 11:46 | Outpatient (REF) | payer MEDICAID, SELFPAY ==
[2020-09-27 02:40] LABS: CT PCR NOT DETECTED (Not Detect.); NG PCR NOT DETECTED (Not Detect.)
== END 2020-09-26 11:47 | disposition home or self-care (01) ==
LOC: HO.LAB 11:46
PROVIDERS: PCP Internal Medicine; Visit Provider Advanced Practice Midwife
DX: O09.513 Supervision of elderly primigravida, third trimester (principal); O99.213 Obesity complicating pregnancy, third trimester; Z3A.36 36 weeks gestation of pregnancy
CPT/HCPCS: 87081; 87491; 87591; 99212

== ENCOUNTER 2020-09-28 12:35 | Outpatient (REF) | payer MEDICAID, SELFPAY ==
--- NOTE | ~2020-09-28 | US_ITS ---
EXAMINATION: OBSTETRICAL ULTRASOUND, Follow up HISTORY: 34-year-old at the 36.5 weeks of gestation Size greater than dates AMA High BMI COMPARISON: 08/03/2020 TECHNIQUE: Real time transabdominal imaging with color and M-mode Doppler. PRESENTATION: Vertex PLACENTA LOCATION: Posterior without previa AMNIOTIC FLUID: HOLGER 14.8 cm MEASUREMENTS: 1. Biparietal Diameter: 9.2 cm; 37.3 wks 2. Head Circumference: 33.2 cm; 37.6 wks 3. Abdominal Circumference: 36.3 cm; 40.2 wks 4. Femur Length: 7.2 cm; 37.0 wks 5. Heart Rate: 150 beats per minute WEIGHT: EFW: 3617 grams (8 lbs 0 oz) -- 96 %. BIOPHYSICAL PROFILE: Motion: 2 Tone: 2 Breathin Amniotic Fluid: 2 Total score: 8/8 GESTATIONAL AGE: 1. Established GA: 36.5 wks 2. GA from AUA: 38.1 wks ESTIMATED DATE OF DELIVERY: 1. Established BAYLEE: 10/21/2020 2. BAYLEE from AUA: 10/11/2020 US/US OB follow up IMPRESSION: 1. A single live IUP 2. Size greater than dates, EFW corresponds to 96th percentile 3. Reassuring biophysical profile I reviewed today's ultrasound findings as well as the limitations of ultrasound and estimating weights. She reports having had normal 1 hour GLT. Even though the EFW corresponds to 96th percentile, unless the actual EFW exceeds 5000 g, an attempt at vaginal delivery is encouraged. The risk of shoulder dystocia and permanent Erb's palsy is not high enough to warrant an elective section. In addition, an induction of labor before 39 weeks for impending macrosomia is not recommended Follow-up has not been scheduled at this time. Thank you very much for this referral. Total time 30 minutes. The time spent was devoted to counseling the patient about the disease and diagnosis, coordinating care including reviewing her records, pertinent lab data and studies, as well as discussing diagnostic evaluation and workup, plan therapeutic interventions and future disposition of care. This includes any additional research needed to obtain further information in formulating the plan of care of this patient. This note was generated with a voice recognition program. Please excuse any errors which may have been overlooked during my review of this note. Sometimes these errors may affect the content or meaning of a given sentence.
[2020-09-28 14:27] LABS: Hematocrit 38.3 % (37-47); Hemoglobin 12.7 g/dl (12.0-16.0); Mean Corpuscular HGB Conc 33.2 g/dl (31.0-35.0); Mean Corpuscular Hemoglobin 29.1 pg (27.0-33.0); Mean Corpuscular Volume 87.6 fL (80-98); Mean Platelet Volume 11.6 fL (9.4-12.3); Platelet Count 252 X10*3/uL (160-400); Red Blood Count 4.37 X10*6/uL (4.20-5.50); Red Cell Distribution Width 13.4 % (11.0-16.0); White Blood Count 10.9 X10*3/uL (4.8-10.8)
[2020-09-28 15:27] LABS: Alanine Aminotransferase 13 U/L (0-31); Aspartate Amino Transferase 16 U/L (5-31); Blood Urea Nitrogen 4 mg/dL (9-16); Estimated Glomerular Filt Rate > 60; Uric Acid 4.2 mg/dL (2.4-5.7)
[2020-09-28 17:49] LABS: Creatinine Urine 36.23 mg/dL; Total Protein Urine Random < 7 mg/dL (<12)
== END 2020-09-28 12:36 | disposition home or self-care (01) ==
LOC: HO.US 12:35
PROVIDERS: PCP Internal Medicine; Referring Provider Advanced Practice Midwife; Visit Provider Advanced Practice Midwife
DX: O99.213 Obesity complicating pregnancy, third trimester (principal); E66.9 Obesity, unspecified; Z3A.36 36 weeks gestation of pregnancy
CPT/HCPCS: 36415; 76816; 82565; 84156; 84450; 84460; 84520; 84550; 85027

== ENCOUNTER → 2020-10-04 13:42 | Outpatient (BNVA) | payer MEDICAID, SELFPAY | PROVIDERS: Visit Provider Advanced Practice Midwife | DX: O09.513 Supervision of elderly primigravida, third trimester (principal); O99.213 Obesity complicating pregnancy, third trimester; E66.9 Obesity, unspecified; Z3A.37 37 weeks gestation of pregnancy | CPT/HCPCS: 59025; 81003; 99212 ==

== ENCOUNTER 2020-10-05 14:32 | Outpatient (REF) | payer MEDICAID, SELFPAY ==
--- NOTE | ~2020-10-05 | US_ITS ---
EXAMINATION: OBSTETRICAL ULTRASOUND, Follow up HISTORY: A 34-year-old at the 37.5 weeks of gestation Size date discrepancy AMA COMPARISON: 08/29/2020 TECHNIQUE: Real time transabdominal imaging with color and M-mode Doppler. PRESENTATION: Vertex PLACENTA LOCATION: Posterior without previa AMNIOTIC FLUID: Normal MEASUREMENTS: 1. Biparietal Diameter: 9.1 cm; 37.0 wks 2. Head Circumference: 33.3 cm; 38.1 wks 3. Abdominal Circumference: 36.7 cm; 40.5 wks 4. Femur Length: 7.1 cm; 36.5 wks 5. Heart Rate: 147 beats per minute WEIGHT: EFW: 3655 grams (8 lbs 1 oz) -- 88 %. BIOPHYSICAL PROFILE: Motion: 2 Tone: 2 Breathin Amniotic Fluid: 2 Total score: 8/8 GESTATIONAL AGE: 1. Established GA: 38.1 wks 2. GA from A: 37.5 wks ESTIMATED DATE OF DELIVERY: 1. Established BAYLEE: 10/21/2020 2. [facility]AYLEE from [facility]: 10/18/2020 US/US OB biophysical profile IMPRESSION: 1. A single active fetus is in vertex presentation 2. Size equals dates, EFW corresponds to 88 percentile 3. Reassuring biophysical profile Thank you very much for this referral. This note was generated with a voice recognition program. Please excuse any errors which may have been overlooked during my review of this note. Sometimes these errors may affect the content or meaning of a given sentence.
== END 2020-10-05 14:33 | disposition home or self-care (01) ==
LOC: HO.US 14:32
PROVIDERS: Visit Provider Advanced Practice Midwife
DX: O99.213 Obesity complicating pregnancy, third trimester (principal); E66.9 Obesity, unspecified
CPT/HCPCS: 76819

== ENCOUNTER → 2020-10-09 11:02 | Outpatient (BNVA) | payer MEDICAID, SELFPAY | PROVIDERS: Visit Provider Advanced Practice Midwife | DX: O09.513 Supervision of elderly primigravida, third trimester (principal); O99.213 Obesity complicating pregnancy, third trimester; Z3A.38 38 weeks gestation of pregnancy | CPT/HCPCS: 59025; 99212 ==

== ENCOUNTER 2020-10-12 08:42 | Outpatient (REF) | payer MEDICAID, SELFPAY ==
--- NOTE | ~2020-10-12 | US_ITS ---
EXAMINATION: US OBSTETRICAL (BIOPHYSICAL PROFILE) CLINICAL INFORMATION: 34-year-old at the 38.5 weeks of gestation AMA High BMI COMPARISON: 10/05/2020 TECHNIQUE: Biophysical profile is performed over 30 minutes with assessment of breathing, gross body movement, tone, and qualitative amniotic fluid volume. FINDINGS: POSITION: Vertex PLACENTA: Posterior without previa AMNIOTIC FLUID INDEX: 6.5 cm, DVP 3.3 cm CARDIAC ACTIVITY: 132 beats per minute BIOPHYSICAL PROFILE: Motion: 2 Tone: 2 Breathin Amniotic Fluid: 2 The total biophysical score is 8/8 US/US OB biophysical profile IMPRESSION: 1. Single intrauterine gestation in vertex position. 2. Reassuring BPP and HOLGER Thank you for allowing me to participate in her care. This note was generated with a voice recognition program. Please excuse any errors which may have been overlooked during my review of this note. Sometimes these errors may affect the content or meaning of a given sentence.
== END 2020-10-12 08:43 | disposition home or self-care (01) ==
LOC: HO.US 08:42
PROVIDERS: Visit Provider Advanced Practice Midwife
DX: O99.213 Obesity complicating pregnancy, third trimester (principal)
CPT/HCPCS: 76819

== ENCOUNTER → 2020-10-16 13:44 | Outpatient (BNVA) | payer MEDICAID, SELFPAY | PROVIDERS: Visit Provider Advanced Practice Midwife | DX: O09.513 Supervision of elderly primigravida, third trimester (principal); Z3A.39 39 weeks gestation of pregnancy | CPT/HCPCS: 59025; 81003; 99212 ==

== ENCOUNTER 2020-10-30 13:25 | Outpatient (REF) | payer MEDICAID, SELFPAY ==
[2020-10-30 15:10] LABS: Free T4 (Free Thyroxine) 0.97 ng/dL (0.71-1.85); Thyroid Stimulating Hormone 9.45 uIU/mL (0.32-4.0)
== END 2020-10-30 13:26 | disposition home or self-care (01) ==
LOC: HO.LAB 13:25
PROVIDERS: PCP Internal Medicine; Visit Provider Internal Medicine Endocrinology, Diabetes & Metabolism
DX: E89.0 Postprocedural hypothyroidism (principal)
CPT/HCPCS: 36415; 84439; 84443

== ENCOUNTER → 2020-11-02 14:12 | Outpatient (BNVA) | payer MEDICAID, SELFPAY | PROVIDERS: Visit Provider Advanced Practice Midwife | DX: Z39.2 Encounter for routine postpartum follow-up (principal) | CPT/HCPCS: 99212 ==

== ENCOUNTER 2020-11-27 13:06 | Outpatient (REF) | payer MEDICAID, SELFPAY | END 2020-11-27 13:07 | disposition home or self-care (01) | LOC: HO.LAB 13:06 | PROVIDERS: PCP Internal Medicine; Visit Provider Advanced Practice Midwife | DX: R30.0 Dysuria (principal) | CPT/HCPCS: 87086 ==

== ENCOUNTER 2020-11-28 13:03 | Outpatient (REF) | payer MEDICAID, SELFPAY ==
[2020-12-01 10:51] LABS: HPV mRNA E6/E7 rflx Not Detected (Not Detected)
== END 2020-11-28 13:04 | disposition home or self-care (01) ==
LOC: HO.LAB 13:03
PROVIDERS: Visit Provider Advanced Practice Midwife
DX: Z39.2 Encounter for routine postpartum follow-up (principal); Z39.1 Encounter for care and examination of lactating mother; E66.9 Obesity, unspecified; Z68.41 Body mass index [BMI] 40.0-44.9, adult; Z71.3 Dietary counseling and surveillance
CPT/HCPCS: 87624; 88142; 99212

== ENCOUNTER 2020-12-06 13:26 | Outpatient (REF) | payer MEDICAID, SELFPAY ==
[2020-12-06 14:14] LABS: Appearance Urine CLEAR; Color Urine YELLOW; Glucose Urine UA NEG (NEG); Leukocyte Esterase Urine NEG (NEG); Nitrite Urine NEG (NEG); Urine Blood NEG (NEG); Urine Ketones NEG (NEG); Urine Protein NEG (NEG-TRACE)
== END 2020-12-06 13:27 | disposition home or self-care (01) ==
LOC: HO.LAB 13:26
PROVIDERS: PCP Internal Medicine; Visit Provider Advanced Practice Midwife
DX: R30.0 Dysuria (principal)
CPT/HCPCS: 81003

== ENCOUNTER 2020-12-17 14:08 | Outpatient (REF) | payer MEDICAID, SELFPAY ==
[2020-12-17 15:44] LABS: MANUAL DIFF FLAG NO
[2020-12-17 15:58] LABS: Basophils Percent Auto 0.4 % (0-2); Eosinophils Absolute Auto 0.3 X10*3/uL (0.0-0.4); Eosinophils Percent Auto 3.7 % (0-4); Hematocrit 38.3 % (37-47); Hemoglobin 12.6 g/dl (12.0-16.0); Imm Gran Abs Auto 0.02 X10*3/uL (0.00-0.03); Imm Gran Pct Auto 0.2 % (0.0-0.4); Lymphocytes Absolute Auto 2.3 X10*3/uL (1.2-4.9); Lymphocytes Percent Auto 25.6 % (20-40); Mean Corpuscular HGB Conc 32.9 g/dl (31.0-35.0); Mean Corpuscular Hemoglobin 29.4 pg (27.0-33.0); Mean Corpuscular Volume 89.3 fL (80-98); Mean Platelet Volume 11.5 fL (9.4-12.3); Monocytes Absolute Auto 0.7 X10*3/uL (0.1-1.2); Monocytes Percent Auto 7.7 % (2-11); Neutrophils Absolute Auto 5.6 X10*3/uL (2.0-8.3); Neutrophils Percent Auto 62.4 % (45-73); Platelet Count 358 X10*3/uL (160-400); Red Blood Count 4.29 X10*6/uL (4.20-5.50); Red Cell Distribution Width 12.4 % (11.0-16.0); White Blood Count 8.9 X10*3/uL (4.8-10.8)
[2020-12-17 16:15] LABS: Alanine Aminotransferase 23 U/L (0-31); Alkaline Phosphatase 71 U/L (39-117); Anion Gap 13 (12-20); Aspartate Amino Transferase 18 U/L (5-31); Bilirubin Total 0.7 mg/dL (0.0-1.0); Blood Urea Nitrogen 8 mg/dL (9-16); Calcium 9.3 mg/dL (8.4-10.2); Carbon Dioxide 22 mmol/L (22-29); Chloride 107 mmol/L (96-108); Cholesterol 155 mg/dL; Estimated Glomerular Filt Rate > 60; Glucose Random 101 mg/dL (60-115); HDL Cholesterol 39 mg/dL; LDL Cholesterol Calculated 84 mg/dl; Sodium 138 mmol/L (135-145); Total Protein 6.8 g/dL (6.5-8.0); Triglycerides 163 mg/dL
[2020-12-17 16:25] LABS: Free T4 (Free Thyroxine) 0.93 ng/dL (0.71-1.85); Thyroid Stimulating Hormone 2.26 uIU/mL (0.32-4.0)
[2020-12-17 16:26] LABS: TSH reflex Free T4 2.07 uIU/mL (0.32-4.0)
== END 2020-12-17 14:09 | disposition home or self-care (01) ==
LOC: HO.LAB 14:08
PROVIDERS: Internal Medicine; PCP Internal Medicine; Visit Provider Internal Medicine
DX: Z00.01 Encounter for general adult medical examination with abnormal findings (principal); E89.0 Postprocedural hypothyroidism; T78.3XXS Angioneurotic edema, sequela
CPT/HCPCS: 36415; 80053; 80061; 84439; 84443; 85025

== ENCOUNTER → 2021-01-09 12:19 | Outpatient (BNVA) | payer MEDICAID, SELFPAY | PROVIDERS: PCP Internal Medicine; Visit Provider Internal Medicine | DX: R79.89 Other specified abnormal findings of blood chemistry (principal); E03.9 Hypothyroidism, unspecified | CPT/HCPCS: 99212 ==

== ENCOUNTER 2021-01-10 11:10 | Outpatient (REF) | payer MEDICAID, SELFPAY ==
[2021-01-10 12:13] LABS: Cholesterol 166 mg/dL; HDL Cholesterol 43 mg/dL; LDL Cholesterol Calculated 104 mg/dl; Triglycerides 97 mg/dL
[2021-01-10 12:32] LABS: Free T4 (Free Thyroxine) 0.96 ng/dL (0.71-1.85); Thyroid Stimulating Hormone 4.31 uIU/mL (0.32-4.0)
[2021-01-12 13:16] LABS: Prolactin Undiluted 49.7 ng/mL
== END 2021-01-10 11:11 | disposition home or self-care (01) ==
LOC: HO.LAB 11:10
PROVIDERS: Absent Provider Internal Medicine; PCP Internal Medicine; Visit Provider Internal Medicine
DX: E78.2 Mixed hyperlipidemia (principal); E89.0 Postprocedural hypothyroidism; H61.21 Impacted cerumen, right ear; R79.89 Other specified abnormal findings of blood chemistry
CPT/HCPCS: 36415; 80061; 84146; 84439; 84443

== ENCOUNTER 2021-01-31 09:03 | Outpatient (REF) | payer MEDICAID, SELFPAY | END 2021-01-31 09:04 | disposition home or self-care (01) | LOC: HO.NEURO 09:03 | PROVIDERS: Visit Provider Internal Medicine | DX: Z13.89 Encounter for screening for other disorder (principal) ==

== ENCOUNTER 2021-02-20 08:47 | Outpatient (REF) | payer MEDICAID, SELFPAY ==
--- NOTE | 2021-02-20 08:51 | EMG_ITS ---
This is a 35-year-old woman with a history of hypothyroidism, who comes in with 3 month history of left upper extremity pain, numbness, and tingling. CURRENT MEDICATION: Levothyroxine 112 mcg. PHYSICAL EXAMINATION: On examination, she is alert and oriented with normal intellectual functions. Cranial nerves II through XII are normal. Muscle tone and strength are normal in all 4 extremities. No Tinel or Phalen sign. IMPRESSION: Rule out carpal tunnel syndrome. Nerve conduction EMG study: Early carpal tunnel syndrome on the left. Normal EMG of the left C5-T1 innervated muscles. MD CORA Levi/BECCA / [id number]
== END 2021-02-20 08:48 | disposition home or self-care (01) ==
LOC: HO.NEURO 08:47
PROVIDERS: Visit Provider Internal Medicine
DX: M65.312 Trigger thumb, left thumb (principal); E89.0 Postprocedural hypothyroidism
CPT/HCPCS: 36415; 80053; 80061; 84439; 84443; 95885; 95910; 99202; J1100

== ENCOUNTER 2021-02-20 09:32 | Outpatient (REF) | payer MEDICAID, SELFPAY ==
[2021-02-20 12:02] LABS: Alanine Aminotransferase 30 U/L (0-31); Albumin Level 3.9 g/dL (3.5-5.0); Alkaline Phosphatase 68 U/L (39-117); Anion Gap 10 (12-20); Aspartate Amino Transferase 24 U/L (5-31); Bilirubin Total 0.5 mg/dL (0.0-1.0); Blood Urea Nitrogen 8 mg/dL (9-16); Calcium 9.1 mg/dL (8.4-10.2); Carbon Dioxide 28 mmol/L (22-29); Chloride 106 mmol/L (96-108); Cholesterol 158 mg/dL; Estimated Glomerular Filt Rate > 60; Glucose Random 82 mg/dL (60-115); HDL Cholesterol 39 mg/dL; LDL Cholesterol Calculated 104 mg/dl; Potassium 4.3 mmol/L (3.3-5.1); Sodium 140 mmol/L (135-145); Total Protein 6.9 g/dL (6.5-8.0); Triglycerides 79 mg/dL
[2021-02-20 12:22] LABS: Thyroid Stimulating Hormone 8.19 uIU/mL (0.32-4.0)
[2021-02-20 12:23] LABS: Free T4 (Free Thyroxine) 0.92 ng/dL (0.71-1.85); Thyroid Stimulating Hormone 7.98 uIU/mL (0.32-4.0)
== END 2021-02-20 09:33 | disposition home or self-care (01) ==
LOC: HO.LAB 09:32
PROVIDERS: Referring Provider Internal Medicine; Visit Provider Internal Medicine
DX: E78.2 Mixed hyperlipidemia (principal); E89.0 Postprocedural hypothyroidism; M54.59 Other low back pain; M65.312 Trigger thumb, left thumb
CPT/HCPCS: 36415; 80053; 80061; 84439; 84443

== ENCOUNTER 2021-03-22 12:54 | Outpatient (REF) | payer MEDICAID, SELFPAY ==
[2021-03-22 13:30] LABS: Binax Internal Control QC Valid; Binax Lot number: 9864; Binax Now Covid-19 Ag Positive (Negative)
== END 2021-03-22 12:55 | disposition home or self-care (01) ==
LOC: HO.LAB 12:54
PROVIDERS: Visit Provider Internal Medicine
DX: Z20.822 Contact with and (suspected) exposure to COVID-19 (principal)
CPT/HCPCS: 36415; C9803

== ENCOUNTER 2021-03-23 13:48 | Emergency (ER) | payer MEDICAID, SELFPAY ==
--- NOTE | ~2021-03-23 | XR_ITS ---
EXAMINATION: XR CHEST CLINICAL INFORMATION: Cough. COMPARISON: 07/15/2020 chest radiographs. TECHNIQUE: Frontal view of the chest was obtained. FINDINGS: No significant abnormality is noted involving the heart, lungs, mediastinum, bony thorax or soft tissues. XR/XR chest 1V IMPRESSION: No acute cardiopulmonary process.
[2021-03-23 15:42] VITALS: BP 148/73; PULSE 66; RESP 18; TEMP 36.7; O2SAT 98; BMI 40.4
--- NOTE | 2021-03-23 17:09 | ED.URI ---
HPI - URI/Sore Throat General Chief Complaint: Upper Respiratory Symptoms Stated Complaint: +covid dif breathing Time Seen by Provider: 03/23/21 15:50 History of Present Illness HPI Narrative: Patient complains of cough congestion and body aches for 3 days she does have a positive COVID test and is aware for diagnosis, no shortness of breath now Related Data Home Medications Medication Instructions Recorded Confirmed vitamin with calcium 1 tab PO DAILY 03/27/20 11/28/20 no.72-iron 27 mg-folic acid 1 mg tablet ( Vitamins Plus Low Iron) Previous Rx's Medication Instructions Recorded ibuprofen 600 mg tablet 600 mg PO Q6H PRN #90 tab 11/02/20 levothyroxine 125 mcg tablet 125 mcg PO DAILY 30 Days #30 tab 02/20/21 Allergies Allergy/AdvReac Type Severity Reaction Status Date / Time No Known Allergies Allergy Verified 03/23/21 15:42 [No Known Allergies*] Review of Systems Review of Systems: Positive for cough congestion and body aches Negatives no fever no chills no headache no neck pain no stiff neck no sore throat no difficulty breathing or swallowing no chest pain no abdominal pain no nausea vomiting or diarrhea no leg swelling no calf pain or swelling Yes all other systems are reviewed and are negative PMFSH Past Medical History Source: nursing notes reviewed Medical History Elevated prolactin level History of Graves' disease Hypothyroidism Obesity Postablative hypothyroidism Vitamin D deficiency Surgical History Hx of section Hx of cholecystectomy Family History Family History Father Hypertension Mother Thyroid disease Maternal Grandmother Family history of diabetes mellitus (DM) Hypertension Thyroid disease Paternal Grandmother Hypertension Paternal Grandfather No problems noted. Social History Social History (Updated 02/20/21 @ 10:15 by Rae Agarwal CMA) Household Members: Spouse Housing: Apartment Alcohol intake: former Patient Tobacco Use Status: Never used Tobacco Advance Directives: No Advance Directives Information Provided: No Current occupational status: unemployed Physical Exam Vital Signs: Vital Signs: Last Vital Signs Temp 98.0 F 03/23/21 15:42 Pulse 66 03/23/21 15:42 Resp 18 03/23/21 15:42 BP 148/73 H 03/23/21 15:42 Pulse Ox 98 03/23/21 15:42 BMI result Body Mass Index 40.4 General appearance is no acute distress The eyes no redness or discharge The pharynx clear with moist mucous membranes no redness swelling or exudate Neck is supple Chest clear to auscultation bilateral Heart no murmur Extremities no calf tenderness or swelling no edema, full range of motion x4 Course Course Course Narrative: Well-appearing patient with negative x-ray but positive for COVID is discharged Discharge Plan Discharge Clinical Impression: COVID-19 Patient Disposition: Home, Self-Care Additional Instructions: Your positive for COVID and it is very common to have mild shortness of breath coughing runny nose body aches and fatigue Today there is no sign of any dangerous condition her chest x-ray was normal your vital signs were fine and your lungs were very clear Return to the ER any time for increased difficulty breathing any worse condition or any concerns any time Prescriptions: No Action levothyroxine 125 mcg tablet 125 mcg PO DAILY 30 Days Qty: 30 RF: 3 Vitamin Plus Low Iron 27 mg iron- 1 mg tablet 1 tab PO DAILY RF: 0 ibuprofen 600 mg tablet 600 mg PO Q6H PRN (Reason: pain) Qty: 90 RF: 1 Stand Alone Forms: Work/School Release Interventions: ED Discharge Assessment Last Done: 03/23/21 17:14 Discharge Date/Time: 03/23/21 17:15
== END 2021-03-23 17:15 | disposition home or self-care (01) ==
PROVIDERS: Emergency Provider Emergency Medicine; PCP Internal Medicine
DX: U07.1 COVID-19 (principal); R05.9 Cough, unspecified; Z79.899 Other long term (current) drug therapy
CPT/HCPCS: 71045; 99282; 99283

== ENCOUNTER 2021-04-17 15:58 | Outpatient (REF) | payer MEDICAID, SELFPAY ==
[2021-04-17 17:44] LABS: Thyroid Stimulating Hormone 0.95 uIU/mL (0.32-4.0)
== END 2021-04-17 15:59 | disposition home or self-care (01) ==
LOC: HO.LAB 15:58
PROVIDERS: PCP Internal Medicine; Visit Provider Internal Medicine
DX: E89.0 Postprocedural hypothyroidism (principal)
CPT/HCPCS: 36415; 84439; 84443

== ENCOUNTER → 2021-05-01 10:28 | Outpatient (BNVA) | payer MEDICAID, SELFPAY | PROVIDERS: PCP Internal Medicine; Referring Provider Internal Medicine; Visit Provider Physician Assistant ==

== ENCOUNTER → 2021-05-27 08:12 | Outpatient (BNVA) | payer MEDICAID, SELFPAY | PROVIDERS: PCP Internal Medicine; Visit Provider Surgery ==

== ENCOUNTER 2021-06-05 10:42 | Outpatient (REF) | payer MEDICAID, SELFPAY ==
--- NOTE | ~2021-06-05 | XR_ITS ---
EXAMINATION: XR CHEST CLINICAL INFORMATION: Moderate/severe obesity due to excess calories COMPARISON: None TECHNIQUE: 2 views of the chest were obtained. FINDINGS: The lungs are well-expanded and clear. The heart size and pulmonary vascularity is normal. No gross bony abnormality seen. XR/XR chest 2V IMPRESSION: Unremarkable chest exam.
--- NOTE | 2021-06-05 10:51 | ECG_ITS ---
Test Reason : E66.01 Blood Pressure : / mmHG Vent. Rate : 054 BPM Atrial Rate : 054 BPM P-R Int : 162 ms QRS Dur : 082 ms QT Int : 450 ms P-R-T Axes : 028 031 042 degrees QTc Int : 426 ms Sinus bradycardia Otherwise normal ECG When compared with ECG of 15-JUL-2020 11:55, No significant change was found Referred By: Ty Hernandez Electronically Signed By:LAURA HACKETT
[2021-06-05 11:13] LABS: MANUAL DIFF FLAG NO
[2021-06-05 11:45] LABS: Basophils Percent Auto 0.5 % (0-2); Eosinophils Absolute Auto 0.3 X10*3/uL (0.0-0.4); Eosinophils Percent Auto 3.7 % (0-4); Hematocrit 39.7 % (37.0-47.0); Hemoglobin 12.6 g/dl (12.0-16.0); Imm Gran Abs Auto 0.02 X10*3/uL (0.00-0.03); Imm Gran Pct Auto 0.3 % (0.0-0.4); Lymphocytes Absolute Auto 1.7 X10*3/uL (1.2-4.9); Lymphocytes Percent Auto 21.8 % (20-40); Mean Corpuscular HGB Conc 31.7 g/dl (31.0-35.0); Mean Corpuscular Hemoglobin 27.8 pg (27.0-33.0); Mean Corpuscular Volume 87.4 fL (80.0-98.0); Mean Platelet Volume 11.9 fL (9.4-12.3); Monocytes Absolute Auto 0.6 X10*3/uL (0.1-1.2); Monocytes Percent Auto 8.2 % (2-11); Neutrophils Absolute Auto 5.1 x10*3/uL (2.0-8.3); Neutrophils Percent Auto 65.5 % (45-73); Platelet Count 315 X10*3/uL (160-400); Red Blood Count 4.54 X10*6/uL (4.20-5.50); Red Cell Distribution Width 13.1 % (11.0-16.0); White Blood Count 7.8 X10*3/uL (4.8-10.8)
[2021-06-05 12:07] LABS: Estimated Average Glucose 103 mg/dL; Hemoglobin A1c % 5.2 %
[2021-06-05 12:17] LABS: Alanine Aminotransferase 28 U/L (0-31); Albumin Level 4.1 g/dL (3.5-5.0); Alkaline Phosphatase 68 U/L (39-117); Anion Gap 12 (12-20); Aspartate Amino Transferase 22 U/L (5-31); Bilirubin Total 1.1 mg/dL (0.0-1.0); Blood Urea Nitrogen 10 mg/dL (9-16); C Reactive Protein 0.46 mg/dL (< or = 0.50); Calcium 9.2 mg/dL (8.4-10.2); Carbon Dioxide 25 mmol/L (22-29); Chloride 104 mmol/L (96-108); Cholesterol 134 mg/dL; Estimated Glomerular Filt Rate > 60; Glucose Random 89 mg/dL (60-115); HDL Cholesterol 33 mg/dL; Iron 61 mcg/dL (30-160); LDL Cholesterol Calculated 87 mg/dl; Percent Iron Saturation 17 % (15-50); Potassium 4.3 mmol/L (3.3-5.1); Sodium 137 mmol/L (135-145); Total Iron Binding Capacity 354 mcg/dL (228-428); Triglycerides 74 mg/dL; Unsaturated Iron Binding 293 ug/dL
[2021-06-05 12:48] LABS: Insulin 13 uU/mL (2-29); TSH reflex Free T4 1.89 uIU/mL (0.32-4.0); Vitamin D 25-OH Total 26.5 ng/mL (>30)
[2021-06-05 12:57] LABS: Folate 12.6 ng/mL (> or = 4.0); Vitamin B12 327 pg/mL (200-900)
[2021-06-05 13:19] LABS: Ferritin 23 ng/mL (10-122)
[2021-06-05 16:15] LABS: H Pylori Breath Test Negative (Negative)
[2021-06-06 12:51] LABS: Calcium (PTHI) 9.2 mg/dL (8.6-10.2); PTHI 61 pg/mL (16-77)
[2021-06-11 11:12] LABS: Vitamin A 46 mcg/dL (38-98)
[2021-06-12 12:36] LABS: Vitamin B1 <6 nmol/L (8-30)
== END 2021-06-05 10:43 | disposition home or self-care (01) ==
LOC: HO.XRAY 10:42
PROVIDERS: PCP Internal Medicine; Visit Provider Surgery
DX: Z01.818 Encounter for other preprocedural examination (principal); E03.9 Hypothyroidism, unspecified; K21.9 Gastro-esophageal reflux disease without esophagitis; E66.01 Morbid (severe) obesity due to excess calories
CPT/HCPCS: 36415; 71046; 80053; 80061; 82306; 82607; 82728; 82746; 83013; 83036; 83525; 83540; 83970; 84425; 84443; 84590; 84630; 85025; 86140; 93005; 99211

== ENCOUNTER 2021-06-11 11:31 | Outpatient (REF) | payer MEDICAID, SELFPAY ==
[2021-06-11 12:58] LABS: Free T4 (Free Thyroxine) 1.15 ng/dL (0.71-1.85); Thyroid Stimulating Hormone 1.85 uIU/mL (0.32-4.0)
[2021-06-14 16:32] LABS: Zinc 49 mcg/dL (60-130)
== END 2021-06-11 11:32 | disposition home or self-care (01) ==
LOC: HO.LAB 11:31
PROVIDERS: Absent Provider Surgery; PCP Internal Medicine; Visit Provider Internal Medicine
DX: E03.9 Hypothyroidism, unspecified (principal); E66.01 Morbid (severe) obesity due to excess calories; K21.9 Gastro-esophageal reflux disease without esophagitis
CPT/HCPCS: 36415; 84439; 84443; 84630

== ENCOUNTER → 2021-06-17 08:13 | Outpatient (BNVA) | payer MEDICAID, SELFPAY | PROVIDERS: PCP Internal Medicine; Visit Provider Dietitian, Registered | DX: E66.01 Morbid (severe) obesity due to excess calories (principal) | CPT/HCPCS: 97802 ==

== ENCOUNTER → 2021-06-19 12:36 | Outpatient (BNVA) | payer MEDICAID, SELFPAY | PROVIDERS: PCP Internal Medicine; Visit Provider Internal Medicine | DX: E89.0 Postprocedural hypothyroidism (principal); R79.89 Other specified abnormal findings of blood chemistry; E55.9 Vitamin D deficiency, unspecified; Z79.899 Other long term (current) drug therapy | CPT/HCPCS: Q3014 ==

== ENCOUNTER 2021-06-20 11:39 | Outpatient (REF) | payer MEDICAID, SELFPAY ==
[2021-06-21 21:22] LABS: Prolactin 13.7 ng/mL
== END 2021-06-20 11:40 | disposition home or self-care (01) ==
LOC: HO.LAB 11:39
PROVIDERS: PCP Internal Medicine; Visit Provider Internal Medicine
DX: R79.89 Other specified abnormal findings of blood chemistry (principal)
CPT/HCPCS: 36415; 84146

== ENCOUNTER → 2021-07-01 08:09 | Outpatient (BNVA) | payer MEDICAID, SELFPAY | PROVIDERS: PCP Internal Medicine; Visit Provider Surgery | DX: E66.01 Morbid (severe) obesity due to excess calories (principal) ==

== ENCOUNTER 2021-07-16 07:57 | Outpatient (REF) | payer MEDICAID, SELFPAY ==
--- NOTE | ~2021-07-16 | FL_ITS ---
EXAMINATION: XR FLUOROSCOPY UPPER GI WITH AIR CLINICAL INFORMATION: Morbid/severe obesity due to excess calories. COMPARISON: None. TECHNIQUE: Routine upper GI air-contrast study was performed. FINDINGS: Following oral administration of thick barium and effervescent granules, there is normal propagation of bolus from the oral cavity through the pharynx and esophagus and into the stomach without any evidence of obstruction, narrowing or stricture. On placing patient supine and prone lying, there is mild gastroesophageal reflux without hiatal hernia. Otherwise the rest of the course, caliber and peristalsis of the stomach, duodenal bulb and the sweep is normal. There is evidence of previous cholecystectomy. FLUOROSCOPY TIME: 1.6 minutes. DOSE AREA PRODUCT: 29.132 uGy-m2 (microgray-meter squared). FL/FL upper GI w air IMPRESSION: Mild gastroesophageal reflux otherwise unremarkable upper GI exam.
--- NOTE | ~2021-07-16 | US_ITS ---
EXAMINATION: US COMPLETE ABDOMEN WITH LIVER ELASTOGRAPHY CLINICAL INFORMATION: Morbid obesity due to excess calories COMPARISON: None. TECHNIQUE: Real-time imaging of the abdominal viscera. Noninvasive ultrasound liver fibrosis assessment is performed using Tal ElastPQ point quantification shear wave elastography (2D-SWE) with a C5-2 MHz transducer. Multiple elastography samples are obtained. FINDINGS: PANCREAS: Normal. The visualized pancreatic head and body are normal in appearance. The remainder of the pancreas is obscured from visualization by the overlying bowel gas. ABDOMINAL AORTA: The proximal, middle, and distal aortic segments are normal in caliber. INFERIOR VENA CAVA: Visualized portions are normal. LIVER: Diffusely increased echogenicity of the liver parenchyma suggesting steatosis. The liver is normal in size and contour. No focal lesion or intrahepatic duct dilation. The right lobe measures 16.4 cm in length. The left lobe measures 9.7 cm in length. Portal flow is towards the liver (hepatopetal). Shear wave liver elastography median stiffness is 1.5 m/s (reference: normal median stiffness is 1.3 m/s or less). IQR/median stiffness to assess sampling precision is 0.11 (reference: good quality data set is IQR/median stiffness of 0.15 or less). GALLBLADDER: Surgically absent. COMMON BILE DUCT: Normal in caliber measuring 0.3 cm in diameter. RIGHT KIDNEY: Normal. No hydronephrosis. No renal calculi or focal parenchymal lesions. The kidney measures 10.6 cm in maximum dimension. LEFT KIDNEY: Normal. No hydronephrosis. No renal calculi or focal parenchymal lesions. The kidney measures 11.5 cm in maximum dimension. SPLEEN: Normal. The spleen measures 10 cm in maximum dimension. FREE FLUID: None. US/US abdomen comp w elastography IMPRESSION: 1. Echogenic liver parenchyma suggesting steatosis. 2. Liver elastography: In the absence of other known clinical signs, measurements rule out compensated advanced chronic liver disease. If there are known clinical signs, further testing may be needed for confirmation. REFERENCE: Society of Radiologists in Ultrasound Liver Stiffness Thresholds (2020): LIVER STIFFNESS THRESHOLDS: *Liver Stiffness equal or less than 1.3 m/s: High probability of being normal. *Liver Stiffness less than 1.7 m/s: In the absence of other known clinical signs, rules out compensated advanced chronic liver disease. *Liver Stiffness 1.7-2.1 m/s: Suggestive of compensated advanced chronic liver disease but need further test for confirmation. *Liver Stiffness over 2.1 m/s: Rules in compensated advanced chronic liver disease. *Liver Stiffness over 2.4 m/s: Suggestive of clinically significant portal hypertension. QUALITY OF DATA SET: *IQR/Median value equal or less than 0.15 implies a quality data set. *IQR/Median value over 0.15 implies a poor quality data set. SIGNIFICANT CHANGE FROM PRIOR EXAM: Significant change if liver stiffness measurement is 10% or greater from prior exam. OTHER CONSIDERATIONS: The stage of liver fibrosis may be overestimated in the setting of acute hepatitis, liver inflammation, elevated liver function tests, hepatic vascular congestion, obstructive cholestasis, non-fasting state, and infiltrative diseases such as amyloidosis and lymphoma. In some patients with NAFLD, the liver stiffness thresholds for compensated advanced chronic liver disease may be lower. In causes other than viral hepatitis and NAFLD, liver stiffness thresholds are not well established.
== END 2021-07-16 07:58 | disposition home or self-care (01) ==
LOC: HO.US 07:57
PROVIDERS: Visit Provider Surgery
DX: E66.01 Morbid (severe) obesity due to excess calories (principal); K21.9 Gastro-esophageal reflux disease without esophagitis; E03.9 Hypothyroidism, unspecified
CPT/HCPCS: 74246; 76705; 76981

== ENCOUNTER → 2021-08-07 08:33 | Outpatient (BNVA) | payer MEDICAID, SELFPAY | PROVIDERS: PCP Internal Medicine; Visit Provider Surgery | DX: E66.01 Morbid (severe) obesity due to excess calories (principal) ==

== ENCOUNTER 2021-08-15 11:45 | Outpatient (REF) | payer MEDICAID, SELFPAY ==
[2021-08-15 13:11] LABS: Free T4 (Free Thyroxine) 1.19 ng/dL (0.71-1.85); Thyroid Stimulating Hormone 0.92 uIU/mL (0.32-4.0); Vitamin D 25-OH Total 23.9 ng/mL (>30)
== END 2021-08-15 11:46 | disposition home or self-care (01) ==
LOC: HO.LAB 11:45
PROVIDERS: PCP Internal Medicine; Visit Provider Internal Medicine
DX: E89.0 Postprocedural hypothyroidism (principal); E55.9 Vitamin D deficiency, unspecified
CPT/HCPCS: 36415; 82306; 84439; 84443

== ENCOUNTER → 2021-08-21 08:54 | Outpatient (BNVA) | payer MEDICAID, SELFPAY | PROVIDERS: PCP Internal Medicine; Visit Provider Internal Medicine | DX: Z13.89 Encounter for screening for other disorder (principal) ==

== ENCOUNTER → 2021-08-23 08:14 | Outpatient (BNVA) | payer MEDICAID, SELFPAY | PROVIDERS: PCP Internal Medicine; Visit Provider Surgery | DX: Z13.89 Encounter for screening for other disorder (principal) ==

== ENCOUNTER 2021-08-29 06:04 | Inpatient (IN) | payer MEDICAID, SELFPAY ==
[2021-08-23 11:40] LABS: MANUAL DIFF FLAG NO
[2021-08-23 12:07] LABS: Basophils Absolute Auto 0.1 X10*3/uL (0.0-0.2); Basophils Percent Auto 0.5 % (0-2); Eosinophils Absolute Auto 0.2 X10*3/uL (0.0-0.4); Eosinophils Percent Auto 2.4 % (0-4); Hematocrit 40.5 % (37.0-47.0); Hemoglobin 13.2 g/dl (12.0-16.0); Imm Gran Abs Auto 0.02 X10*3/uL (0.00-0.03); Imm Gran Pct Auto 0.2 % (0.0-0.4); Lymphocytes Absolute Auto 2.5 X10*3/uL (1.2-4.9); Lymphocytes Percent Auto 25.6 % (20-40); Mean Corpuscular HGB Conc 32.6 g/dl (31.0-35.0); Mean Corpuscular Hemoglobin 27.2 pg (27.0-33.0); Mean Corpuscular Volume 83.5 fL (80.0-98.0); Monocytes Absolute Auto 0.7 X10*3/uL (0.1-1.2); Monocytes Percent Auto 6.7 % (2-11); Neutrophils Absolute Auto 6.4 x10*3/uL (2.0-8.3); Neutrophils Percent Auto 64.6 % (45-73); Platelet Count 328 X10*3/uL (160-400); Red Blood Count 4.85 X10*6/uL (4.20-5.50); White Blood Count 9.9 X10*3/uL (4.8-10.8)
[2021-08-23 12:19] LABS: INTERNATIONAL NORM RATIO 1.1 (0.9-1.1); Prothrombin Time 12.8 SEC (9.9-13.0)
[2021-08-23 12:22] LABS: Partial Thromboplastin Time 39.6 SEC (24.1-38.0)
[2021-08-23 12:35] LABS: Alanine Aminotransferase 23 U/L (0-31); Albumin Level 4.4 g/dL (3.5-5.0); Alkaline Phosphatase 65 U/L (39-117); Anion Gap 14 (12-20); Aspartate Amino Transferase 21 U/L (5-31); Bilirubin Total 1.3 mg/dL (0.0-1.0); Blood Urea Nitrogen 11 mg/dL (9-16); C Reactive Protein 0.49 mg/dL (< or = 0.50); Calcium 9.6 mg/dL (8.4-10.2); Carbon Dioxide 24 mmol/L (22-29); Chloride 104 mmol/L (96-108); Cholesterol 136 mg/dL; Estimated Glomerular Filt Rate > 60; Glucose Random 85 mg/dL (60-115); HDL Cholesterol 35 mg/dL; LDL Cholesterol Calculated 87 mg/dl; Potassium 4.7 mmol/L (3.3-5.1); Sodium 137 mmol/L (135-145); Total Protein 7.6 g/dL (6.5-8.0); Triglycerides 73 mg/dL
[2021-08-23 12:57] LABS: Estimated Average Glucose 103 mg/dL; Hemoglobin A1c % 5.2 %
[2021-08-23 13:02] LABS: TSH reflex Free T4 1.19 uIU/mL (0.32-4.0)
[2021-08-23 13:21] LABS: Insulin 12 uU/mL (2-29)
[2021-08-23 15:15] VITALS: BMI 38.6
--- NOTE | 2021-08-24 13:42 | MHC.SHP ---
Pre-Procedural Eval Section A Date of Service: 08/24/21 The patient is an INPATIENT: Yes The History & Physical has been completed within 30 days and I have reviewed it.: Yes Section B Chief Complaint: obesity Relevant Family History (Specify if Yes): No Relevant Social History: None Present Medications: None Medical History: No relevant PMH History of Previous Operations: No relevant previous surgery Allergies: Allergies Allergy/AdvReac Type Severity Reaction Status Date / Time No Known Allergies Allergy Verified 08/23/21 13:36 [No Known Allergies*] Review of Systems Sugical H&P ROS: Negative: Constitution, Cardiovascular, Respiratory, Neurological, Psychiatric, Hem-Onc, Allergic/Immunologic, Gastrointestinal, Genitourinary, Musculoskeletal, Integumentary, Endocrine and Eyes/Ears/Nose/Throat Exam Surgical H&P Exam: Normal: HEENT, Normal: Heart, Normal: Lungs, Normal: Extremities, Normal: Abdomen, Normal: Skin and Normal: Neurological Plan Diagnosis/Plan: Unchanged I have reviewed the history and physical and performed a pertinent physical examination on my patient. No changes have occurred unless specified.
--- NOTE | 2021-08-28 08:41 | P.CONAN_ITS ---
Documented by User: Doreen Reeves NP 08/28/21 08:43 HPI - Anesthesia Eval Consult details Narrative: 35yo F for Gastrectomy Sleeve,EGD,Possible diaphragmatic hernia,Possible ventral hernia,Possible open PMFSH Active Problems Active Problems: All Active Problems (Updated 08/23/21 @ 13:45 by Ty Hernandez MD) BMI 38.0-38.9,adult (Acute) (Acute) Supervision of normal in first trimester (Acute) Supervision of normal first in first trimester (Acute) Supervision of normal in second trimester (Acute) Advanced maternal age (AMA) in (Acute) Supervision of normal in third trimester (Acute) Dysuria (Acute) Encounter for care after hospital delivery (Acute) care following delivery (Acute) care and examination of lactating mother (Acute) Cervical cancer screening (Acute) Trigger finger of left thumb (Acute) COVID-19 (Acute) Vitamin B12 deficiency (Acute) Vitamin B1 deficiency (Acute) Zinc deficiency (Acute) BMI 39.0-39.9,adult (Acute) GERD (gastroesophageal reflux disease) (Acute) Knee pain (Acute) Back pain (Acute) GERD (gastroesophageal reflux disease) (Acute) Morbid obesity (Acute) Elevated prolactin level (Acute) Obesity (Acute) Vitamin D deficiency (Acute) History of Graves' disease (Acute) Postablative hypothyroidism (Acute) Hypothyroidism (Acute) Past Medical History Medical History (Updated 08/29/21 @ 10:24 by Ty Hernandez MD) Back pain Elevated prolactin level GERD (gastroesophageal reflux disease) History of Graves' disease Hypothyroidism Knee pain Liver fibrosis Morbid obesity Obesity Postablative hypothyroidism Steatosis, liver Vitamin D deficiency Family History Family History Father Hypertension Mother Thyroid disease Maternal Grandmother Family history of diabetes mellitus (DM) Hypertension Thyroid disease Paternal Grandmother Hypertension Paternal Grandfather No problems noted. Surgical History Surgical History (Updated 08/29/21 @ 10:24 by Ty Hernandez MD) Hx of section Hx of cholecystectomy Social History Social History Household Members: Spouse Housing: Apartment Are you a primary rn primary care to a significant other at home: No Do you presently have visiting nurse or other home services: No Alcohol intake: former Patient Tobacco Use Status: Never used Tobacco Use of substances other than those prescribed or required for medical reasons: No Currently Displaying Signs/Symptoms of Drug Intoxication Withdrawal: No Have you been hit, kicked, punched, or otherwise hurt by someone within the past year? If so, by whom?: No Are you DNR?: No Advance Directives: No Advance Directives Information Provided: Yes (Mailed w/ Pre-op instructions) Advance Directives on File: No Recently lost weight without trying: No How much weight loss: 24-33 pounds Nutrition Risks: No Nutritional Risk Patient : No : No service: No Current occupational status: employed Meds Allergies Allergy/AdvReac Type Severity Reaction Status Date / Time No Known Allergies Allergy Verified 08/23/21 13:36 [No Known Allergies*] Home Medications Medication Instructions Recorded Confirmed Last Taken Type cholecalciferol (vitamin D3) 25 25 mcg PO DAILY 05/01/21 08/23/21 Unknown History mcg (1,000 unit) capsule Exam Exam Date and Time: August 28, 2021 0841 Height,Weight and Vital Signs: Height 5 ft 3 in Weight 98.883 kg Pertinent Lab Results Pertinent Lab Results: Laboratory Tests 08/23/21 08/23/21 08/23/21 11:35 11:38 11:38 WBC 9.9 RBC 4.85 Hgb 13.2 Hct 40.5 MCV 83.5 MCH 27.2 MCHC 32.6 RDW 13.0 Plt Count 328 MPV 12.0 Immature Gran % (Auto) 0.2 Neut % (Auto) 64.6 Lymph % (Auto) 25.6 [place] % (Auto) 6.7 Eos % (Auto) 2.4 Baso % (Auto) 0.5 Lymph # (Auto) 2.5 [place] # (Auto) 0.7 Eos # (Auto) 0.2 Baso # (Auto) 0.1 Abs Immat Gran (auto) 0.02 Absolute Neuts (auto) 6.4 Absolute Nucleated RBC 0.000 Nucleated RBC % (auto) 0.0 PT 12.8 INR 1.1 APTT 39.6 H Sodium Potassium Chloride Carbon Dioxide Anion Gap BUN Creatinine Estim Creat Clear Calc Estimated GFR Random Glucose Estimat Average Glucose Hemoglobin A1c % Insulin Level Calcium Total Bilirubin AST ALT Alkaline Phosphatase C-Reactive Protein Total Protein Albumin Triglycerides Cholesterol LDL Cholesterol, Calc HDL Cholesterol TSH Blood Type O Positive Antibody Screen NEGATIVE 08/23/21 08/23/21 11:38 11:38 WBC RBC Hgb Hct MCV MCH MCHC RDW Plt Count MPV Immature Gran % (Auto) Neut % (Auto) Lymph % (Auto) Cand[place] % (Auto) Eos % (Auto) Baso % (Auto) Lymph # (Auto) [place] # (Auto) Eos # (Auto) Baso # (Auto) Abs Immat Gran (auto) Absolute Neuts (auto) Absolute Nucleated RBC Nucleated RBC % (auto) PT INR APTT Sodium 137 Potassium 4.7 Chloride 104 Carbon Dioxide 24 Anion Gap 14 BUN 11 Creatinine 0.87 Estim Creat Clear Calc TNP Estimated GFR > 60 Random Glucose 85 Estimat Average Glucose 103 Hemoglobin A1c % 5.2 Insulin Level 12 Calcium 9.6 Total Bilirubin 1.3 H AST 21 ALT 23 Alkaline Phosphatase 65 C-Reactive Protein 0.49 Total Protein 7.6 Albumin 4.4 Triglycerides 73 Cholesterol 136 LDL Cholesterol, Calc 87 HDL Cholesterol 35 TSH 1.19 Blood Type Antibody Screen Narrative Narrative: EKG 05/2021 Vent. Rate : 054 BPM ? ? Atrial Rate : 054 BPM ?? P-R Int : 162 ms? QRS Dur : 082 ms ? ? QT Int : 450 ms ? ? ? P-R-T Axes : 028 031 042 degrees ?? QTc Int : 426 ms ? Sinus bradycardia Otherwise normal ECG When compared with ECG of 15-JUL-2020 11:55, No significant change was found Assessment and Plan Assessment Anesthesia Assessment: Chart Reviewed Documented by User: Yinka Edyd MD 08/29/21 16:30 [facility] Past Medical History Medical History (Updated 08/29/21 @ 10:24 by Ty Hernandez MD) Back pain Elevated prolactin level GERD (gastroesophageal reflux disease) History of Graves' disease Hypothyroidism Knee pain Liver fibrosis Morbid obesity Obesity Postablative hypothyroidism Steatosis, liver Vitamin D deficiency Family History Family History Father Hypertension Mother Thyroid disease Maternal Grandmother Family history of diabetes mellitus (DM) Hypertension Thyroid disease Paternal Grandmother Hypertension Paternal Grandfather No problems noted. Family history of problems with anesthesia: No Surgical History Surgical History (Updated 08/29/21 @ 10:24 by Ty Hernandez MD) Hx of section Hx of cholecystectomy History of Problems with Anesthesia: No Social History Social History Household Members: Spouse Housing: Apartment Are you a primary rn primary care to a significant other at home: No Do you presently have visiting nurse or other home services: No Alcohol intake: former Patient Tobacco Use Status: Never used Tobacco Use of substances other than those prescribed or required for medical reasons: No Currently Displaying Signs/Symptoms of Drug Intoxication Withdrawal: No Have you been hit, kicked, punched, or otherwise hurt by someone within the past year? If so, by whom?: No Are you DNR?: No Advance Directives: No Advance Directives Information Provided: Yes (Mailed w/ Pre-op instructions) Advance Directives on File: No Recently lost weight without trying: No How much weight loss: 24-33 pounds Nutrition Risks: No Nutritional Risk Patient : No : No service: No Current occupational status: employed Meds Allergies Allergy/AdvReac Type Severity Reaction Status Date / Time No Known Allergies Allergy Verified 08/23/21 13:36 [No Known Allergies*] Home Medications Medication Instructions Recorded Confirmed Last Taken Type cholecalciferol (vitamin D3) 25 25 mcg PO DAILY 05/01/21 08/23/21 Unknown History mcg (1,000 unit) capsule Exam Airway Mallampati Class: III TM Dist: >3cm Neck ROM: Full Loose/Missing/Broken Teeth: Yes (Chipped teeth ) Heart: S1,S2 Lungs: b/l breath sounds Assessment and Plan Assessment Anesthesia Assessment: Anesthesia Plan Discussed Final Anesthetic Review Family History of Problems with Anesthesia: No History of Problems with Anesthesia: No NPO: Yes ASA Class: III Final Preanesthetic Review: Meds/Allgs Chart Reviewed, Consent Obtained/Reviewed and Anes Risks/Benef Reviewed Patient Risk: Intermediate Procedure Risk: Intermediate Anesthetic Plan Anesthetic Plan: GA Disposition: Standard PACU
[2021-08-28 14:26] LABS: COVID-19 Test Negative (Negative)
[2021-08-29] VITALS (13 sets, daily range): BP systolic 113–157; BP diastolic 51–86; PULSE 64–88; RESP 16–24; TEMP 35.9–36.5; O2SAT 95–100
--- NOTE | ~2021-08-29 | CT_ITS ---
EXAMINATION: CT ABDOMEN AND PELVIS WITHOUT CONTRAST CLINICAL INFORMATION: Anemia, laparoscopic sleeve gastrectomy. COMPARISON: Abdominal ultrasound dated 07/16/2021. TECHNIQUE: Multidetector volumetric imaging was performed from the superior aspect of the liver through the pubic symphysis. Sagittal and coronal reformatted images were obtained on the technologist's workstation. Lack of intravenous and oral contrast limits visceral evaluation. This CT examination was performed using dose optimization techniques as appropriate, variously including the following: *Automated exposure control *Adjustment of mA and/or kV according to patient size (this includes techniques or standardized protocols for targeted exams where dose is matched to indication/reason for exam; i.e. extremities or head) *Use of iterative reconstruction technique DLP: 795 mGy-cm FINDINGS: LUNG BASES: Trace left pleural effusion. LIVER, GALLBLADDER, AND BILIARY TREE: Hepatic steatosis without focal abnormality. Status post cholecystectomy. PANCREAS: Unremarkable. SPLEEN: Unremarkable. ADRENAL GLANDS: Unremarkable. KIDNEYS AND URETERS: Unremarkable. BLADDER: Unremarkable. GASTROINTESTINAL TRACT: Status post sleeve gastrectomy with associated postsurgical changes. No focal fluid collection. The proximal small bowel is unremarkable. A higher attenuation structures seen in the left lower quadrant measuring approximately 11.5 x 10.0 x 2.3 cm (image 43, series 5; image 85, series 6). Smaller components extend along the anterior abdominal wall midline and laterally to the left. This abuts the uterus inferiorly. A less dense dependent fluid collection extends inferiorly into the pelvis. The colon and rectum are unremarkable. ABDOMINAL WALL: Scattered anterior and lateral subcutaneous infiltrative changes most pronounced on the left. Focal air is seen in the right and left rectus abdominis muscles, right greater than left. There is asymmetric increased thickening and attenuation of the left rectus abdominis muscle measuring approximately 8.4 x 6.3 x 2.9 cm (image 26, series 5; image 32, series 3). More focal subcutaneous air and infiltrative changes are seen to the right of midline in the supraumbilical subcutaneous fat (image 31, series 3; image 103, series 6). LYMPH NODES: No lymphadenopathy. VASCULAR: Unremarkable. PELVIC VISCERA: Anteverted/anteflexed uterus with superior margins obscured adjacent to the collection detailed above. OSSEOUS STRUCTURES: Mild degenerative changes in the inferior thoracic spine. No suspicious abnormality. CT/CT abdomen pelvis wo con IMPRESSION: 1. Status post sleeve gastrectomy with associated mild post surgical changes including mild surrounding infiltrative changes and, but no surrounding abnormality. Trace left pleural effusion may be associated and reactive. 2. Postsurgical changes in the anterior abdominal wall with asymmetry in the left rectus abdominis muscle suggesting intramural hemorrhage. 3. Higher attenuation collection in the left lower quadrant as detailed above concerning for intraperitoneal hemorrhage as well. A component of this could contain clustered small bowel loops without dilatation, but this is unclear. Lesser dense dependent fluid collection extending into the pelvis. These findings were discussed with Dr. Em at the time of dictation. Images to sided that a short-term follow-up CT scan of the abdomen and pelvis, preferably with intravenous and oral contrast would be helpful as clinically indicated, but within 12 hours to assess for change.
[2021-08-29 06:20] LABS: UPreg QC Valid YES; Urine Pregnancy NEGATIVE (NEGATIVE)
[2021-08-29] MEDS: Lactated Ringers 1,000 ML 100 ML IVCONT ×3 (06:27→20:35)
--- NOTE | 2021-08-29 06:46 | PC.NURSE ---
pt banded on right wrist.
--- NOTE | 2021-08-29 10:17 | P.BOP_ITS ---
Brief Operative Note Date of Service: 08/29/21 Pre-op diagnosis: Severe obesity with comorbidities (see below) Post-op diagnosis: same Procedure: INITIAL PATIENT BMI ON PRESENTATION AT OUR OFFICE: 43.8 kg/m2 LAST BMI BEFORE SURGERY: 39.6 kg/m2 COMORBIDITIES: hypothyroidism, GERD, back/knee pain, liver steatosis, liver fibrosis ?The patient presented to the Weight Management Program with significant obesity that was negatively impacting the patient's comorbidities as listed above.? The program is a phased program with a special focus on preoperative medical weight management to promote substantial weight loss and prepare the patients for the second phase of the program: bariatric surgery. The patient participated in an intensive weekly lifestyle ?intervention and exercise program during which the patient ?has lost between the initial office visit and the last preoperative visit 28.2lbs, or 11.42% of initial actual body weight. It was deemed appropriate for the patient to now have bariatric surgery. In light of the current Covid-19 pandemic and the well documented strong association of obesity and increased risk of worse outcomes if infected with Covid-19 (REFERENCES: https://pubmed.ncbi.nlm.nih.gov/40532131/ ,? https://pubmed.ncbi.nlm.nih.gov/74377067/ ), any delay in undergoing bariatric surgery may lead to the patient's worsening health condition and increased?risk of more severe Covid-19 disease if infected. In addition a recent?study from [facility] published in [facility] on 03/18/2021 ([email or web address] [email or web address] [email or web address]) found that, among patients with obesity, substantial weight loss achieved with surgery was associated with improved outcomes of COVID-19 infection. The findings suggest that obesity can be a modifiable risk factor for the severity of COVID-19 infection. In addition, the patient met the BMI-criteria for bariatric surgery based on the BMI on initial presentation. The patient should not be penalized for achieving such weight loss because ?it is not sustainable long-term without surgical intervention and it was achieved in preparation for bariatric surgery ?under my direction and based on my published research ([email or web address]).[email or web address] and? https://www.soard.org/article/[email or web address](43)73965-X/pdf ) ?that a 10% preoper ative weight loss improves long-term weight loss after surgery and reduces perioperative complications.? Insurance carriers such as [facility] have endorsed my recommendations ?and have included in their policies criteria to include a 10% preoperative weight loss requirement. PROCEDURE: Esophago-gastroscopy, laparoscopic lysis of adhesions, laparoscopic sleeve gastrectomy and laparoscopic gastropexy INDICATIONS: This is a 35 year-old female who was electively scheduled for laparoscopic, possibly open sleeve gastrectomy. The risks and complications of the procedure were discussed with the patient in advance, particularly the possibility of ; pulmonary embolism; staple line leak; bleeding; GERD; cardiac, pulmonary, or renal complications; as well as long-term problems such as insufficient weight loss, vitamin deficiency, strictures, or ulcers. The patient understood all the risks, and was in agreement to proceed with surgery. DESCRIPTION OF PROCEDURE: After informed consent was obtained from the patient, the patient was given preoperative antibiotics, and was transferred to the operating room. After successful induction of general anesthesia, pneumatic compression devices were placed on both lower extremities. An upper endoscopy was performed next. The oropharynx and esophagus appeared to be within normal limits. There was no diaphragmatic hernia present consistent with the findings of the preoperative upper GI. The stomach was entered. Then after all fluid and air were suctioned and the stomach was fully decompressed, the scope was withdrawn and secured in the mid esophagus. The patient was then prepped and draped in the usual sterile manner, and abdominal access was established at the right upper quadrant with the Attila technique. A 12 mm blunt port was inserted, and the abdomen was insufflated with CO2 to a pressure of 15 mmHg. Under direct visualization, additional ports were placed, specifically two 5 mm Versi-step ports to the left upper quadrant, and a 5 mm Versi-Step port to the right upper quadrant. 1% lidocaine plain was used to infiltrate all port sites as well as all fascia defects. Following that, the patient was placed in a steep reverse Trendelenburg position. An additional 5 mm port was placed to the right flank for the Mediflex retractor that was used to retract the left lobe of the liver. The gastro-esophageal fat pad was opened with the ultrasonic device (Thunderbeat, Olympus) and the anterior esophagus and hiatus were exposed. The angle of His was opened with the ultrasonic device the fundus of the stomach from any diaphragmatic and splenic attachments. I then opened the gastrocolic ligament between the transverse colon and the greater curvature of the stomach with the ultrasonic device to enter the lesser sac and facilitate the ligation of the short gastric vessels. I started at a mid-point along the greater curvature and using the Thunderbeat, all short gastric vessels were divided all the way to the angle of His until the left lauri was completely dissected at its entirety. I then divided the gastro-colic ligament distally to a distance of about 3-4 cm proximal to the pylorus. There were congenital adhesions between the pancreas and posterior gastric wall. Those were lysed completely with the ultrasonic device. The stomach was then divided transversely with one Endo LEONARDO-45 purple and four LEONARDO-60 articulating orange loads using the AEON stapler and loads. Every effort was made that the gastric sleeve had a tubular shape and an even caliber throughout. Once the sleeve resection was completed, the staple line of the gastric sleeve was reinforced with Hemoclips. The resected stomach was retrieved without difficulty from the Attila port. A gastropexy was then performed in order to prevent postoperative GERD and partial gastric volvulus. Several interrupted 2.0 Surgidac sutures were placed between the sleeve's staple line and the previously divided greater omentum and gastro-colic ligament using the Endo-Stitch device. ?An upper endoscopy was performed. There was no narrowing at the GE junction. The scope was easily advanced all the way to the pylorus which was clearly visualized. There was no narrowing anywhere and the sleeve's caliber was even throughout. The sleeve's staple line was inspected and there was no evidence of ischemia, bleeding or dehiscence. At that point the gastroscope was withdrawn from the patient?s mouth while we were decompressing the bowel and the stomach from any remaining air. I looked into the lesser sac to see how the sleeve was situating and it was situating well. There was no bleeding from the staple line, spleen, or short gastric vessels. The Mediflex retractor was removed, and the undersurface of the liver was inspected and there was no bleeding. The patient was placed in supine position. I closed the fascial defect of the 12 mm port site with a figure of eight #1 Polysorb suture. Then 100 cc 0.25 % Marcaine plain with 10 mg of Dexamethasone were used to infiltrate the fascial closure as well as all skin incisions. A total of 7ml of Zynrelef was placed in the incision At this point, the abdomen was deflated, all ports were removed under direct vision, and no bleeding was noted from any of the port sites. The skin incisions were irrigated with saline and were closed with 4-0 absorbable monofilament sutures. Steri-Strips and OpSites were used to cover all incisions. The patient was extubated and was transferred in stable condition to the recovery room for further care. I was present and performed all valderrama parts of the procedure. Mr. Em was the first front ventilator. There were no residents to assist with this case. Alexey Hernandez MD, PhD, FACS Surgeon: Ty Hernandez MD Anesthesia: GETA, local and other (TAP block) Was an Industrial Safety And Health Specialist used for this Procedure?: Yes Industrial Safety And Health Specialist: Ebenezer Em Estimated blood loss (mL): 10 IV fluids (mL): 3,000 Urine output (mL): 0 (No Sullivan to record) Pathology: other (Stomach) Condition: stable Disposition: PACU
--- NOTE | 2021-08-29 10:17 | PM.DS ---
DS: Providers Provider Date of Service: 08/30/21 Date of admission: 08/29/21 06:04 Primary care physician: Edilma Reagan MD DS: Summary Hospital Course Hospital Course: ADMITTING DIAGNOSIS: obesity, hypothyroid, gerd, back pain ? DISCHARGE DIAGNOSIS: same, s/p laparoscopic sleeve gastrectomy ? PAST SURGICAL HISTORY: laparoscopic cholecystectomy, cesarian section ? PROCEDURE: upper endoscopy, laparoscopic sleeve gastrectomy ? DISCHARGE SUMMARY: ? History of Present Illness: ? The patient is a?35 year-old woman with a BMI of?43.7 kg/m2 and associated co-morbidities as described above. The patient had extensive work-up,lost?28.2 lbs preoperatively and was electively scheduled for laparoscopic, possible open sleeve gastrectomy and gastropexy. Risks and complications of the surgery were discussed with the patient in advance, particularly the possibility of , pulmonary embolism, anastomotic leak, bleeding, bowel injury, GERD, cardiac, renal or pulmonary complications. The patient understood all the risks and was in agreement with the surgical plan. ? Hospital Course: ? The patient underwent an uneventful laparoscopic sleeve gastrectomy with gastropexy on the day of admission. Postoperatively, the patient was transferred to the surgical floor. The patient received IV Acetaminophen and IV dilaudid for pain control. Patient was started on bariatric phase 1 diet POD #0. On postoperative day one, the patient was feeling well without nausea, vomiting, fevers, or tachycardia. The patient had some mild incisional pain and the abdomen was soft. ? On the morning of postoperative day one, the patient was continued on 1 ounce of water or ice every half hour. During the day, the patient did fairly well, having some incisional pain, but able to ambulate adequately and to tolerate liquids well. She was found to have a significant post-op anemia although remained hemodynamically and clinically stable. Repeat H/H confirmed that it was not lab error and CT was ordered. She was found to have a right rectus sheath hematoma. As she remained stable throughout the day and no clinical symptoms of ongoing bleeding and had no hemodynamic instability and was able to ambulate without lightheadedness, it was felt she was appropriate for d/c home. ? Since the patient is doing well, we decided that the patient was ready to be discharged. The patient was given instructions to follow-up with me next week and to call my office for any fever over 101, persistent abdominal pain, nausea, vomiting, GERD, symptoms of DVT such as calf tenderness, or leg swelling, or pulmonary embolism such as chest pain or shortness of breath. The patient was also instructed to drink 40-60 ounces of liquids per day using the 1-ounce cups. The patient had been given prescriptions for Tylenol for pain, Zofran prn for nausea, and pantoprazole and carafate previously. The patient was encouraged to ambulate and use the incentive spirometer. The patient was allowed to shower, but no baths, and encouraged to stay active at home. All of these instructions were given to the patient personally. All questions were answered and the patient understood all instructions, the instructions were also given to the patient in print. Time Spent with Patient Time attestation: Total time spent providing and/or coordinating discharge services: Discharge coordination time: Less than 30 minutes Quality: Safe Use of Opioids Does Pt have an Active Cancer Diagnosis on the Problem List?: No Quality: Stroke Does the patient have a stroke diagnosis?: No Physical Exam Vital Signs: Vital Signs: Last Vital Signs Temp 97.3 F 08/29/21 10:08 Pulse 88 08/29/21 10:08 Resp 16 08/29/21 10:08 BP 151/86 H 08/29/21 10:08 Pulse Ox 100 08/29/21 10:08 O2 Del Method 08/29/21 10:08 O2 Flow Rate 12 08/29/21 10:08 BMI result Body Mass Index 38.6 DS: Data Data Completed and Pending Pending studies at discharge: Pending at discharge 08/29/21 09:11 Surgical [PTH] Routine Labs on day of discharge: Laboratory Results - last 24 hr 08/28/21 08/29/21 14:00 06:05 Urine Test NEGATIVE COVID-19 (IVETTE) Negative COVID-19 Clin Com See Note Discharge Plan Discharge Patient Disposition: Home Health Service Discharge Diagnosis: s/p laparoscopic sleeve gastrectomy Referrals: Edilma Reagan MD [Primary Care Provider] - 1 Week Discharge Medications: Continued levothyroxine 125 mcg tablet 125 mcg PO DAILY 30 Days Qty: 30 3RF pantoprazole 40 mg tablet,delayed release (DR/EC) 40 mg PO DAILY Qty: 30 2RF sucralfate 100 mg/mL suspension 10 ml PO BID Qty: 400 2RF ondansetron HCl 4 mg tablet 4 mg PO Q12H Qty: 20 0RF Discontinued mecobalamin (vitamin B12) 1,000 mcg tablet,disintegrating 1,000 mcg sublingual DAILY Qty: 30 2RF Rx Instructions: place tablet under tongue and allow to dissolve for at least30 secs before swallowing thiamine HCl (vitamin B1) 100 mg tablet 100 mg PO DAILY Qty: 30 2RF zinc gluconate 10 mg lozenge 10 mg PO DAILY Qty: 100 0RF polyethylene glycol 3350 [Miralax] 17 gram powder in packet 17 g PO DAILY Qty: 14 0RF Rx Instructions: Please do 7 packets mixing each one with 8oz of water on 08/27/21 and another 7 packets on 08/28/21 cholecalciferol (vitamin D3) 25 mcg (1,000 unit) capsule 25 mcg PO DAILY Discharge Orders: Discharge Order (Routine); Ordered 08/30/21 Ordered By: Ty Hernandez Diet: other Activity on Discharge: No heavy lifting Stand Alone Forms: Patient Portal Discharge page Care Plan Goals: weight loss Health Concerns: obesity Plan of Treatment: No tub baths, sex or returning to work until discussed at first post op appointment. No exercise, alcohol, tobacco or illegal drug use. Continue to use incentive spirometer hourly while awake. Walk in home for 5- 10 minutes every 2 hours during the first week. Follow all instructions in the bariatric handbook and call with any questions.Discharge Instructions 1. Please call your doctor or come back to the emergency room should any new symptoms arise. 2. You will receive a courtesy call from [facility] 24-48 hours after discharge. 3. Activity: abstain from alcohol, practice limited stair climbing, no bending, no driving, no exercise, no illicit substances, no lifting, no sex, no tub bath, no work. 4. Diet: continue as discussed with Dr. Hernandez. 5. Dressing Change/Wound Care: Your incision is covered by clear bandages and guaze underneath. If the area is tender, you may apply an ice pack for short intervals (no more than 20 minutes on, followed by at least 20 minutes off). Do not apply heat. Do not use creams, lotions, or topical antibiotics unless instructed to do so by your surgeon. These can cause infection or allergic reaction. 6. Call your doctor if: - Your temperature exceeds 101.5 F - You experience excessive pain or swelling - You have an unexpected reaction to medication - You have excessive bleeding - You experience continued vomiting/nausea - Your incision begins to separate - Your incision shows signs of infection such as increased redness, swelling, excessive pain, heat, or drainage (light blood or clear fluid is normal) 7. General instructions: No lifting greater than 5 lbs for the next 4 weeks. No driving within 24 hours of taking narcotic pain medications. If you do not move your bowels in the next 2 days, please take milk of magnesia over the counter. Please follow the post op diet and do not advance your diet until you are seen in the office in about 2 weeks. Please walk around your home every hour or two to prevent blood clots from forming in your legs. You do not need to wake from sleeping to walk. Please sleep in a bed or couch to prevent kinking at the hips and knees. Please take your incentive spirometer (your lung auto clocks repairer) home with you and use it for the next few days to prevent pneumonias. You may shower, no hot tubs, baths or swimming pools. Please call the office with any questions or concerns such as increasing abdominal pain, fever, chills, shortness of breath, chest pain, leg pain or swelling, or redness or drainage from your incisions. Please stay on stage 3 diet which includes sugar free clear liquids such as ice pops and jello and broth and crystal light. Avoid all carbonation. Please drink 3 protein shakes with at least 25-30 grams of protein daily or 3 of the Celebrate 4:1 shakes which can be purchased in our office. The Celebrate shakes have all of the bariatric vitamins you need if you consume these shakes. If you are drinking other protein shakes, you will need to purchase the Celebrate multivitamins and calcium that we provide in the office (they will provide all the vitamins you need). Please make sure you are consuming at least 40-60 ounces of water in addition to your 3 protein shakes daily. Do not hesitate to contact the office with any questions at . The patient's medical history has been reviewed and they are considered low risk for post op DVT and therefore DVT prophylaxis is not considered necessary. Travel after surgery was reviewed. The patient has not disclosed any travel plans during the first 30 days after surgery and they have been advised that within the first 30 days after surgery any bus, plane, train or car travel over 2 hours in duration is contraindicated due to the possibility of developing blood clots from immobility. Any travel, needs to include periods of ambulation of 10 minutes in duration every 2 hours.? The patient was instructed to discuss any plans for travel during this period with their bariatric surgeon. Assessment: stable s/p laparscopic sleeve gastrectomy
--- NOTE | 2021-08-29 10:21 | PM.PNGS ---
Subjective Subjective Date of Service: 08/30/21 Interval history: Patient has mild incisional pain, but was able to ambulate and use the incentive spirometer. She is tolerating phase 1 bariatric diet Physical Exam Vital Signs: Vital Signs: Last Vital Signs Temp 97.3 F 08/29/21 10:08 Pulse 74 08/29/21 10:18 Resp 21 H 08/29/21 10:18 BP 145/81 H 08/29/21 10:13 Pulse Ox 97 08/29/21 10:18 O2 Del Method 08/29/21 10:18 O2 Flow Rate 2 08/29/21 10:18 BMI result Body Mass Index 38.6 GI: Inspection: Yes normal to inspection, Yes incision (clean, dry and intact) and Yes obesity Extrem: Right lower extremity: normal to inspection (no calf tenderness) Left lower extremity: normal to inspection (no calf tenderness) Objective Data Active Medications Fentanyl (Fentanyl Citrate/Pf 100 Mcg/2 Ml Vial) 25 mcg IVPUSH Q5M PRN; Protocol PRN Reason: Pain, Moderate (Pain Scale 4-6 Hydromorphone HCl (Hydromorphone Hcl 0.5 Mg/0.5 Ml Syringe) 0.25 mg IVPUSH Q5M PRN; Protocol PRN Reason: Pain, Severe (Pain Scale 7-10) Lactated Ringer's (Lr) 1,000 mls @ 100 mls/hr IVCONT .Q10H MIKAELA Last Admin: 08/29/21 06:27 Dose: 100 mls/hr Documented By: RAY Promethazine HCl 6.25 mg/ (Sodium Chloride) 50.25 mls @ 201 mls/hr IV ONCE PRN PRN Reason: Nausea and Vomiting Labs CBC & Chem 7: 08/30/21 05:25 08/30/21 05:25 Labs: Laboratory Results - last 24 hr 08/28/21 08/29/21 14:00 06:05 Urine Test NEGATIVE COVID-19 (IVETTE) Negative COVID-19 Clin Com See Note Procedures Date of Service Date of Service: 08/30/21 Progress Note: A&P Assessment and plan (1) Obesity: Status: Acute Assessment and Plan: s/p laparoscopic sleeve gastrectomy, lysis of adhesions and gastropexy Doing well. Low hemoglobin from preop but patient is completely aymptomatic. We will repeat H/H now. Check am labs. If OK, will discharge home? (2) BMI 39.0-39.9,adult: Status: Acute (3) Hypothyroidism: Status: Acute (4) GERD (gastroesophageal reflux disease): Status: Acute (5) Back pain: Status: Acute (6) Knee pain: Status: Acute (7) GERD (gastroesophageal reflux disease): Status: Acute (8) Steatosis, liver: Status: Acute (9) Liver fibrosis: Status: Acute (10) Status post sleeve gastrectomy: Status: Acute Time Spent With Patient Time: Total time spent is greater than 50% in coordination of care (as documented) at patient's floor/unit and/or counseling patient: Quality Stroke Does the patient have a stroke diagnosis?: No VTE Prior VTE?: No VTE Risk Level:: Surgical - moderate VTE Device Contraindication: N/A - Device Ordered VTE Drug Contraindication: Treatment Not Indicated
[2021-08-29] MEDS: Famotidine/PF 20 MG/2 ML VIAL IVPUSH ×2 (10:27→20:36)
[2021-08-29 10:44] LABS: Hemoglobin 11.8 g/dl (12.0-16.0)
[2021-08-29 10:59] LABS: Anion Gap 13 (12-20); Blood Urea Nitrogen 10 mg/dL (9-16); Calcium 8.3 mg/dL (8.4-10.2); Carbon Dioxide 19 mmol/L (22-29); Chloride 107 mmol/L (96-108); Creatinine Clr Calc Pharmacy 110.7; Estimated Glomerular Filt Rate > 60; Glucose Random 123 mg/dL (60-115); Sodium 135 mmol/L (135-145)
--- NOTE | 2021-08-29 11:43 | PHA.MEDREC ---
Pharmacy Consult ? Medication Reconciliation Pharmacy has completed the medication reconciliation.
[2021-08-29] MEDS: Metoclopramide HCl 10 MG/2 ML VIAL IVPUSH (11:46)
[2021-08-29] MEDS: ceFAZolin Sodium/Dextrose,Iso 2 GM/50 ML PIGGYBACK IV (13:15)
--- NOTE | 2021-08-29 14:34 | MHC.CM.PN ---
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
[2021-08-29] MEDS: HYDROmorphone HCl 0.5 MG/0.5 ML SYRINGE 0.25 MG IVPUSH ×2 (16:43→20:36)
[2021-08-29] MEDS: ondansetron HCL 4 MG/2 ML VIAL IVPUSH (20:36)
[2021-08-30] MEDS: HYDROmorphone HCl 0.5 MG/0.5 ML SYRINGE 0.25 MG IVPUSH ×2 (00:38→04:55)
[2021-08-30 03:37] VITALS: BP 151/65; PULSE 64; RESP 16; TEMP 36.8; O2SAT 97
[2021-08-30] MEDS: ondansetron HCL 4 MG/2 ML VIAL IVPUSH ×2 (04:05→11:18)
[2021-08-30] MEDS: Lactated Ringers 1,000 ML 100 ML IVCONT (04:57)
[2021-08-30 06:09] LABS: MANUAL DIFF FLAG NO
[2021-08-30 06:17] LABS: Basophils Percent Auto 0.1 % (0-2); Hematocrit 25.4 % (37.0-47.0); Hemoglobin 8.1 g/dl (12.0-16.0); Imm Gran Abs Auto 0.04 X10*3/uL (0.00-0.03); Imm Gran Pct Auto 0.3 % (0.0-0.4); Lymphocytes Absolute Auto 1.8 X10*3/uL (1.2-4.9); Lymphocytes Percent Auto 15.4 % (20-40); Mean Corpuscular HGB Conc 31.9 g/dl (31.0-35.0); Mean Corpuscular Hemoglobin 26.7 pg (27.0-33.0); Mean Corpuscular Volume 83.8 fL (80.0-98.0); Mean Platelet Volume 12.2 fL (9.4-12.3); Monocytes Absolute Auto 1.2 X10*3/uL (0.1-1.2); Monocytes Percent Auto 9.7 % (2-11); Neutrophils Absolute Auto 8.8 x10*3/uL (2.0-8.3); Neutrophils Percent Auto 74.5 % (45-73); Platelet Count 283 X10*3/uL (160-400); Red Blood Count 3.03 X10*6/uL (4.20-5.50); Red Cell Distribution Width 13.6 % (11.0-16.0); White Blood Count 11.8 X10*3/uL (4.8-10.8)
[2021-08-30 06:43] LABS: Anion Gap 13 (12-20); Blood Urea Nitrogen 7 mg/dL (9-16); Calcium 8.5 mg/dL (8.4-10.2); Carbon Dioxide 25 mmol/L (22-29); Chloride 105 mmol/L (96-108); Creatinine Clr Calc Pharmacy 113.6; Estimated Glomerular Filt Rate > 60; Glucose Random 102 mg/dL (60-115); Potassium 4.6 mmol/L (3.3-5.1); Sodium 138 mmol/L (135-145)
[2021-08-30 07:44] VITALS: BP 122/61; PULSE 67; RESP 18; TEMP 36.7; O2SAT 98
[2021-08-30] MEDS: 0.9 % Sodium Chloride Flush 3 ML SYRINGE IVFLUSH (08:52)
[2021-08-30] MEDS: Famotidine/PF 20 MG/2 ML VIAL IVPUSH (08:52)
[2021-08-30 09:03] LABS: Hematocrit 25.9 % (37.0-47.0); Hemoglobin 8.4 g/dl (12.0-16.0)
[2021-08-30 10:00] VITALS: BP 139/65; PULSE 66; O2SAT 94
[2021-08-30 11:31] VITALS: BP 129/58; PULSE 65; RESP 18; TEMP 36.4; O2SAT 100
[2021-08-30 12:05] VITALS: BP 120/58; PULSE 67
--- NOTE | 2021-08-30 13:42 | HO.POSTANES ---
Post Anesthesia Evaluation Post Anesthesia Evaluation Vital Signs: Vital Signs Temp Pulse Resp BP Pulse Ox O2 Del Method 08/30/21 12:05 67 120/58 L 08/30/21 10:00 66 139/65 94 Room Air 08/30/21 11:31 97.6 F 65 18 129/58 L 100 Room Air 08/30/21 07:44 98.1 F 67 18 122/61 98 Room Air 08/30/21 08:16 Room Air 08/30/21 03:37 98.2 F 64 16 151/65 H 97 Room Air Anesthesia: General Endotracheal-GETA Mental Status: Awake Pain Control: Satisfactory Nausea/Vomiting: None Hydration: Adequate Anesthesia-Related Issues: No Anes. Related Issues
--- NOTE | 2021-08-30 14:47 | MHC.CM.PN ---
nurse trimming caser note patient is being discharged home today no services per bariatris surgeon discharge plan hopme with no services ' transportstion family bariatric surgeron follow up per dischagre instructions
[2021-08-30 15:21] VITALS: BP 137/62; PULSE 69; RESP 18; TEMP 36.6; O2SAT 97
--- NOTE | 2021-08-30 16:28 | PC.NURSE ---
Ebenezer Em and Dr Bhatti in to see pt. Aware of HH this am. Repeat HH drawn and Ebenezer Em made aware. CT scan done. Pt ambulatory in [place] without reports of dizziness. BP and HR stable. OPt discharged home
== END 2021-08-30 16:28 | disposition home health service (06) | DRG 403 ==
LOC: HO.SSSA 10:17 → HO.S3 10:25
PROVIDERS: Nurse Practitioner; Physician Assistant Surgical; Admitting Provider Surgery; PCP Internal Medicine; Visit Provider Surgery
PROC: 0DB64Z3 Excision of Stomach, Percutaneous Endoscopic Approach, Vertical (ICD-10-PCS; CPT 43845; principal; 2021-08-29 07:30)
DX: E66.01 Morbid (severe) obesity due to excess calories (principal); K74.00 Hepatic fibrosis, unspecified; E89.0 Postprocedural hypothyroidism; K76.0 Fatty (change of) liver, not elsewhere classified; M54.9 Dorsalgia, unspecified; K66.0 Peritoneal adhesions (postprocedural) (postinfection); K21.9 Gastro-esophageal reflux disease without esophagitis; Z68.39 Body mass index [BMI] 39.0-39.9, adult; Z20.822 Contact with and (suspected) exposure to COVID-19; Z86.39 Personal history of other endocrine, nutritional and metabolic disease; Z79.890 Hormone replacement therapy; Z79.899 Other long term (current) drug therapy
CPT/HCPCS: 36415; 74176; 80048; 80053; 80061; 81025; 83036; 83525; 84443; 85014; 85018; 85025; 85610; 85730; 86140; 86850; 86900; 86901; 87635; 88307; 88342; A4649; C9088; J0131; J0690; J1100; J1170; J2250; J2405; J2550; J2765; J3010

== ENCOUNTER 2021-09-03 15:10 | Outpatient (REF) | payer MEDICAID, SELFPAY ==
--- NOTE | ~2021-09-03 | US_ITS ---
EXAMINATION: US VENOUS ULTRASOUND WITH DOPPLER LOWER EXTREMITY, BILATERAL CLINICAL INFORMATION: Pain right lower leg. COMPARISON: Ultrasound venous duplex bilateral lower extremity 07/15/2020. TECHNIQUE: Ultrasound of the deep veins is performed from the hip to the calf with compression sonography and color and pulse Doppler assessment. Spectral analysis with color-flow imaging is performed. FINDINGS: RIGHT: There is normal venous compression and respiratory variation and augmented flow. The visualized common femoral vein, superficial femoral vein, profunda femoral vein, popliteal vein, and the trifurcation region shows no evidence of deep venous thrombosis. There is no significant popliteal fossa cyst. LEFT: There is normal venous compression and respiratory variation and augmented flow. The visualized common femoral vein, superficial femoral vein, profunda femoral vein, popliteal vein, and the trifurcation region shows no evidence of deep venous thrombosis. There is no significant popliteal fossa cyst. If the patient's symptoms persist, followup ultrasound in 5 days 7 days might be of value to exclude proximal propagation from a non-visualized calf vein. US/US venous duplex LE IMPRESSION: No DVT demonstrated in the bilateral lower extremity. No change from previous bilateral lower extremity ultrasound venous exam 07/15/2020.
== END 2021-09-03 15:11 | disposition home or self-care (01) ==
LOC: HO.US 15:10
PROVIDERS: Visit Provider Surgery
DX: M79.661 Pain in right lower leg (principal); M79.662 Pain in left lower leg
CPT/HCPCS: 93970

== ENCOUNTER 2021-09-08 12:34 | Emergency (ER) | payer MEDICAID, SELFPAY ==
--- NOTE | ~2021-09-08 | CT_ITS ---
EXAMINATION: CT ABDOMEN AND PELVIS WITH CONTRAST CLINICAL INFORMATION: Left lower quadrant pain and dysuria. Gastric sleeve surgery on 6 9. Left lower quadrant bleed. COMPARISON: CT abdomen and pelvis 08/30/2021 TECHNIQUE: Multidetector volumetric images were obtained from the superior aspect of the liver through the pubic symphysis following administration 100 mL of Omnipaque 350 intravenous contrast. Sagittal and coronal reformatted images were obtained on the technologist's workstation. Oral contrast: No This CT examination was performed using dose optimization techniques as appropriate, variously including the following: *Automated exposure control *Adjustment of mA and/or kV according to patient size (this includes techniques or standardized protocols for targeted exams where dose is matched to indication/reason for exam; i.e. extremities or head) *Use of iterative reconstruction technique DLP: 870 mGy-cm FINDINGS: LUNG BASES: The visualized lung bases are unremarkable. LIVER, GALLBLADDER, AND BILIARY TREE: The liver is normal in size, shape, and attenuation. No focal hepatic lesion or biliary ductal dilatation is present. Status post cholecystectomy. Surgical clips in the gallbladder fossa. PANCREAS: Unremarkable. SPLEEN: Unremarkable. ADRENAL GLANDS: Unremarkable. KIDNEYS AND URETERS: The kidneys are normal in size, shape, and attenuation. No hydronephrosis, hydroureter, or calculi seen. No perinephric stranding. BLADDER: Unremarkable. GASTROINTESTINAL TRACT: Status post sleeve gastrectomy with suture material in her clips about the greater curvature the stomach. No surrounding inflammatory change or perigastric hematoma. No dilated bowel loops. No bowel wall thickening. Unremarkable appearance of the appendix. No intra-abdominal free air. ABDOMINAL WALL: Similar size of a slight decrease in attenuation of the left rectus sheath hematoma. Similar slight decrease in size and attenuation of the intra-abdominal hemorrhage/hematoma extending from the posterior margin of the left rectus sheath hematoma caudally into the upper pelvis abutting the dome of the bladder and anterior portion of the uterus. The bulk of the collection measures 9.6 x 5.5 x 6.1 cm in size, previously 9.3 x 5.3 x 9.3 cm. Similarly, there is decreasing small volume hemorrhagic free pelvic fluid. Soft tissue gas in the ventral abdominal wall has resolved and subcutaneous edema and stranding is markedly improved/nearly completely resolved. LYMPH NODES: Slight enlargement of a right cardiophrenic angle lymph node measuring 0.8 cm in short axis, previously 0.5 cm, nonspecific and presumably reactive. No lymphadenopathy by size criteria. VASCULAR: Normal caliber abdominal aorta. PELVIC VISCERA: Grossly unremarkable. OSSEOUS STRUCTURES: No acute fracture or suspicious osseous lesion. Mild multilevel degenerative disc disease. CT/CT abdomen pelvis w con IMPRESSION: 1. No acute intra-abdominal process identified. 2. Similar to slight decrease in size of left rectus sheath hematoma and interval decrease in size of underlying anterior intra-abdominal hemorrhagic fluid extending into the pelvis. No new hemorrhage. 3. Resolving inflammatory/postsurgical change in the ventral abdominal wall. 4. Status post sleeve gastrectomy.
[2021-09-08 12:48] VITALS: BP 131/87; PULSE 90; RESP 20; TEMP 36.8; O2SAT 100; BMI 36.6
[2021-09-08 13:38] VITALS: BP 141/74; PULSE 72; RESP 18; TEMP 36.4; O2SAT 100
--- NOTE | 2021-09-08 13:43 | ED_ITS ---
HPI - Abdominal Pain General Chief Complaint: Abdominal Pain Stated Complaint: L side abd pain/trouble urinating/back pain Time Seen by Provider: 09/08/21 13:26 Source: patient Mode of arrival: ambulatory Limitations: no limitations History of Present Illness HPI narrative: 35-year-old female who presents emergency department for evaluation left lower quadrant abdominal pain since Thursday ( 3 days prior to evaluation). The patient underwent gastric sleeve laparoscopic surgery with gastropexy on 08/29/2021. The patient was found have postoperative anemia and CT scan revealed a left rectus abdominus intramuscular hematoma and left lower quadrant intraperitoneal hemorrhage. Patient states she was experiencing left lower quadrant pain postoperatively but this improved and at her follow-up with visit on 09/03/2021 her abdominal pain is improved, she did have asymmetric lower extremity swelling and had a negative DVT study. The patient states that she was feeling fine until Thursday when she developed increased left lower quadrant pain again. She states that the pain started when she was going for a walk. She describes the pain is an intermittent pressure- like pain which is 10/10 at its worst. The pain does radiate to her left lower back. She does have associated dysuria and frequency as well. She states she is feeling dizzy and also has a headache. Her last BM was on . She denied fever, chills, rhinorrhea, sore throat, cough, chest pain, shortness of breath, dyspnea on exertion, nausea, vomiting or diarrhea. MD elicited complaint: abdominal pain Pertinent past history: other ( Gastric sleeve laparoscopic surgery with gastropexy 08/29/2021 complicated by left rectus sheath hematoma and left lower intraperitoneal hemorrhage) Onset (ago): day(s) (3) Pain Consistency: intermittent Location: LUQ Severity: severe Pain scale (0-10): 10 Radiation: other ( pressure) Migration to: LLQ and L flank Exacerbating factors: nothing Relieving factors: nothing Context: recent surgery/procedure ( as above) Associated symptoms: dysuria ( and urinary frequency) Related Data Previous Rx's Medication Instructions Recorded levothyroxine 125 mcg tablet 125 mcg PO DAILY 30 days #30 tabs 02/20/21 ondansetron HCl 4 mg tablet 4 mg PO Q12H nausea and vomiting 08/21/21 #20 tabs pantoprazole 40 mg tablet,delayed 40 mg PO DAILY #30 tabs 08/21/21 release sucralfate 100 mg/mL oral 10 ml PO BID #400 mL 08/21/21 suspension oxycodone 5 mg tablet 5 mg PO Q4H PRN pain #10 tabs 09/08/21 Allergies Allergy/AdvReac Type Severity Reaction Status Date / Time No Known Allergies Allergy Verified 09/08/21 12:47 [No Known Allergies*] Review of Systems Review of Systems Yes all other systems are reviewed and are negative [facility] Past Medical History [facility] Narrative: past medical history: GERD, hypothyroidism, COVID-19 infection, liver fibroids. Past surgical history: Gastric sleeve laparoscopic surgery with gastropexy 08/29/2021 cholecystectomy, . Social history: She denies tobacco use. She denies alcohol use. She denies drug use. Surgical History Hx of section Hx of cholecystectomy Status post sleeve gastrectomy Family History Family History Father Hypertension Mother Thyroid disease Maternal Grandmother Family history of diabetes mellitus (DM) Hypertension Thyroid disease Paternal Grandmother Hypertension Paternal Grandfather No problems noted. Social History Social History Household Members: Spouse Housing: Apartment Are you a primary long term care administrator to a significant other at home: No Do you presently have visiting nurse or other home services: No Alcohol intake: never Patient Tobacco Use Status: Never used Tobacco Use of substances other than those prescribed or required for medical reasons: No Advance Directives: No Advance Directives Information Provided: No Patient : No service: No Current occupational status: employed Physical Exam ED Vital Signs: Vital Signs - 24 hr 09/08/21 12:48 09/08/21 13:38 09/08/21 15:46 Temperature 98.2 F 97.5 F Pulse Rate 90 72 56 Respiratory Rate 20 18 18 Blood Pressure 131/87 141/74 H 101/44 L Pulse Oximetry 100 100 99 Oxygen Delivery Method Room Air Room Air BMI result Body Mass Index 36.6 Const Other: Awake, alert, female patient, very pleasant cooperative, appears to be in di stress secondary to her abdominal pain HENMT Head: Yes normal to inspection, Yes normocephalic and Yes atraumatic Ears: external ears normal General nose exam: Normal external nose present Face and sinus: Yes normal facial exam Mouth: Normal oral and palatal mucosa present Throat: Yes posterior oropharynx normal Eyes General: appearance normal, both eyes and all related structures Pupils: Equal, round and reactive pupils present Neck Neck: Yes normal visual inspection, Yes no lymphadenopathy, Yes trachea midline and Yes supple Chest Chest palpation & inspection: normal inspection of the chest and normal palpation of entire chest wall Resp Effort & Inspection: normal respiratory effort and able to speak in complete sentences Auscultation: clear to auscultation bilaterally Cardio Rate: regular rate Rhythm: regular rhythm Heart sounds: S1 normal heart sound present, S2 normal heart sound present and Murmur heart sound present ( 2/6 systolic from left upper sternal border no radiation) GI Inspection: Yes normal to inspection Palpation (GI): Soft to palpation, Tenderness to palpation present (GI) in the LLQ ( moderate) and no guarding Auscultation: normal bowel sounds General: Yes CVA tenderness on the left ( moderate) Back/Spine/Pelvis Back: CVA tenderness Skin General skin exam: no rashes or lesions noted Neuro Cranial nerves: Yes CN's II-XII intact bilaterally and Yes Equal, round and reactive pupils present Cognition (Neuro): normal cognition Motor exam (neuro): 5/5 motor strength present throughout Extrem General: Yes normal to inspection Psych Appearance: grossly normal Speech and movement: Normal speech and movement present Affect: normal affect Attitude: cooperative Thought process: Normal thought process present Thought content: Normal thought content present Course Course Course Narrative: 35-year-old female who presents emergency department for evaluation of left lower quadrant pain x3 days, the pain radiates to her back, she has associated frequency, dysuria. The patient is 10 days postop from a gastric sleeve laparoscopic surgery with gastropexy which was complicated by anemia, a left rectus abdominus intramuscular hematoma , left lower quadrant intraperitoneal bleed and left lower quadrant pain he improved and resolved, but returned 3 days prior. Patient's vital signs were normal. She did appear to be in distress secondary to her abdominal pain. She does have moderate left lower quadrant tenderness and a 2/6 systolic murmur. the differential includes but is not cruz ited to bleed, diverticulitis, urinary tract infection/pyelonephritis, pancreatitis, bowel obstruction, internal hernia. I did order a CBC, CMP, lipase, lactate, blood cultures x2, type and screen, PT/ INR, PTT. I will obtain a CT scan of the abdomen pelvis with IV contrast. her pain will be treated with morphine 4 mg IV, Zofran 4 mg IV and normal saline x1 L. 1558: Laboratory evaluation: CBC revealed mild anemia with an H&H of 10 and 32, this improved compared to 8.1 and 25.4 on 08/30/2021. CMP was normal except for a slight elevation in the bilirubin of 1.5. Lipase was normal. Urinalysis was unremarkable. COVID-19 was negative Radiology evaluation: CT scan of the abdomen pelvis with IV contrast did not reveal Any acute intra-abdominal process to explain the patient's pain. The left rectus sheath hematoma and left anterior intra-abdominal hemorrhagic fluid was similar to slightly decreased in size compared to the CT on 08/30/2021. Patient's pain did improve after getting morphine 4 mg IV, she states that her pain is not 3/10, she still has [id number] left lower quadrant and suprapubic tenderness. I will discuss the patient's presentation with the pro vider covering for the bariatric service. 1700: I did discuss the patient's presentation with the physician offset assistant press operator Nely Goldstein who is covering the bariatric service and she was able to discu ss the patient's presentation with the covering surgeon. The patient was able to drink water without any difficulty and she is feeling better. The patient will be discharged home and advised to take Tylenol and for pain not relieved by Tylenol she was prescribed oxycodone. Patient will contact the office for follow-up this week and return if she is worse in any way MDM - Abdominal Pain Lab Data Result diagrams: 09/08/21 14:00 09/08/21 14:00 Labs: Lab Results 09/08/21 09/08/21 09/08/21 Range/Units 14:00 14:00 14:00 WBC 10.7 (4.8-10.8) X10*3/uL RBC 3.88 L D (4.20-5.50) X10*6/uL Hgb 10.5 L D (12.0-16.0) g/dl Hct 32.7 L D (37.0-47.0) % MCV 84.3 (80.0-98.0) fL MCH 27.1 (27.0-33.0) pg MCHC 32.1 (31.0-35.0) g/dl RDW 14.5 (11.0-16.0) % Plt Count 391 D (160-400) X10*3/uL MPV 11.4 (9.4-12.3) fL Immature Gran % (Auto) 0.6 H (0.0-0.4) % Neut % (Auto) 72.5 (45-73) % Lymph % (Auto) 16.2 L (20-40) % [place] % (Auto) 8.0 (2-11) % Eos % (Auto) 2.4 (0-4) % Baso % (Auto) 0.3 (0-2) % Lymph # (Auto) 1.7 (1.2-4.9) X10*3/uL [place] # (Auto) 0.9 (0.1-1.2) X10*3/uL Eos # (Auto) 0.3 (0.0-0.4) X10*3/uL Baso # (Auto) 0.0 (0.0-0.2) X10*3/uL Abs Immat Gran (auto) 0.06 H (0.00-0.03) X10*3/uL Absolute Neuts (auto) 7.8 (2.0-8.3) x10*3/uL Absolute Nucleated RBC 0.000 (0.0-0.012) X10*3/uL Nucleated RBC % (auto) 0.0 (0.0-0.2) /100WBC PT 14.1 H (9.9-13.0) SEC INR 1.2 H (0.9-1.1) APTT 35.3 (24.1-38.0) SEC Sodium 136 (135-145) mmol/L Potassium 4.1 (3.3-5.1) mmol/L Chloride 102 (96-108) mmol/L Carbon Dioxide 25 (22-29) mmol/L Anion Gap 13 (12-20) BUN 14 D (9-16) mg/dL Creatinine 0.72 (0.5-1.4) mg/dL Estim Creat Clear Calc 116.5 Estimated GFR > 60 Random Glucose 77 (60-115) mg/dL Lactic Acid (0.5-2.0) mmol/L Calcium 9.3 D (8.4-10.2) mg/dL Total Bilirubin 1.5 H (0.0-1.0) mg/dL AST 23 (5-31) U/L ALT 23 (0-31) U/L Alkaline Phosphatase 74 (39-117) U/L Total Protein 7.0 (6.5-8.0) g/dL Albumin 4.0 (3.5-5.0) g/dL Lipase 28 (8-78) U/L Beta HCG, Quant < 2 mIU/mL Urine Color Urine Appearance Urine pH (5.0-8.0) Ur Specific [place] (1.005-1.025) Urine Protein (NEG-TRACE) MG/DL Urine Glucose (UA) (NEG) MG/DL Urine Ketones (NEG) MG/DL Urine Blood (NEG) Urine Nitrite (NEG) Ur Leukocyte Esterase (NEG) Urine RBC (0) /HPF Urine WBC (0-4) /HPF Ur Squamous Epith Cells /LPF Urine Bacteria /LPF COVID-19 (IVETTE) (Negative) COVID-19 Clin Com Blood Type Antibody Screen 09/08/21 09/08/21 09/08/21 Range/Units 14:00 14:00 14:12 WBC (4.8-10.8) X10*3/uL RBC (4.20-5.50) X10*6/uL Hgb (12.0-16.0) g/dl Hct (37.0-47.0) % MCV (80.0-98.0) fL MCH (27.0-33.0) pg MCHC (31.0-35.0) g/dl RDW (11.0-16.0) % Plt Count (160-400) X10*3/uL MPV (9.4-12.3) fL Immature Gran % (Auto) (0.0-0.4) % Neut % (Auto) (45-73) % Lymph % (Auto) (20-40) % [place] % (Auto) (2-11) % Eos % (Auto) (0-4) % Baso % (Auto) (0-2) % Lymph # (Auto) (1.2-4.9) X10*3/uL [place] # (Auto) (0.1-1.2) X10*3/uL Eos # (Auto) (0.0-0.4) X10*3/uL Baso # (Auto) (0.0-0.2) X10*3/uL Abs Immat Gran (auto) (0.00-0.03) X10*3/uL Absolute Neuts (auto) (2.0-8.3) x10*3/uL Absolute Nucleated RBC (0.0-0.012) X10*3/uL Nucleated RBC % (auto) (0.0-0.2) /100WBC PT (9.9-13.0) SEC INR (0.9-1.1) APTT (24.1-38.0) SEC Sodium (135-145) mmol/L Potassium (3.3-5.1) mmol/L Chloride (96-108) mmol/L Carbon Dioxide (22-29) mmol/L Anion Gap (12-20) BUN (9-16) mg/dL Creatinine (0.5-1.4) mg/dL Estim Creat Clear Calc Estimated GFR Random Glucose (60-115) mg/dL Lactic Acid 0.8 (0.5-2.0) mmol/L Calcium (8.4-10.2) mg/dL Total Bilirubin (0.0-1.0) mg/dL AST (5-31) U/L ALT (0-31) U/L Alkaline Phosphatase (39-117) U/L Total Protein (6.5-8.0) g/dL Albumin (3.5-5.0) g/dL Lipase (8-78) U/L Beta HCG, Quant mIU/mL Urine Color YELLOW Urine Appearance CLEAR Urine pH 6.0 (5.0-8.0) Ur Specific [place] <= 1.005 (1.005-1.025) Urine Protein NEG (NEG-TRACE) MG/DL Urine Glucose (UA) NEG (NEG) MG/DL Urine Ketones 40 (NEG) MG/DL Urine Blood TRACE (NEG) Urine Nitrite NEG (NEG) Ur Leukocyte Esterase NEG (NEG) Urine RBC 1-4 (0) /HPF Urine WBC 1-4 (0-4) /HPF Ur Squamous Epith Cells 2+ /LPF Urine Bacteria TRACE /LPF COVID-19 (IVETTE) Negative (Negative) COVID-19 Clin Com See Note Blood Type Antibody Screen 09/08/21 Range/Units 14:33 WBC (4.8-10.8) X10*3/uL RBC (4.20-5.50) X10*6/uL Hgb (12.0-16.0) g/dl Hct (37.0-47.0) % MCV (80.0-98.0) fL MCH (27.0-33.0) pg MCHC (31.0-35.0) g/dl RDW (11.0-16.0) % Plt Count (160-400) X10*3/uL MPV (9.4-12.3) fL Immature Gran % (Auto) (0.0-0.4) % Neut % (Auto) (45-73) % Lymph % (Auto) (20-40) % [place] % (Auto) (2-11) % Eos % (Auto) (0-4) % Baso % (Auto) (0-2) % Lymph # (Auto) (1.2-4.9) X10*3/uL [place] # (Auto) (0.1-1.2) X10*3/uL Eos # (Auto) (0.0-0.4) X10*3/uL Baso # (Auto) (0.0-0.2) X10*3/uL Abs Immat Gran (auto) (0.00-0.03) X10*3/uL Absolute Neuts (auto) (2.0-8.3) x10*3/uL Absolute Nucleated RBC (0.0-0.012) X10*3/uL Nucleated RBC % (auto) (0.0-0.2) /100WBC PT (9.9-13.0) SEC INR (0.9-1.1) APTT (24.1-38.0) SEC Sodium (135-145) mmol/L Potassium (3.3-5.1) mmol/L Chloride (96-108) mmol/L Carbon Dioxide (22-29) mmol/L Anion Gap (12-20) BUN (9-16) mg/dL Creatinine (0.5-1.4) mg/dL Estim Creat Clear Calc Estimated GFR Random Glucose (60-115) mg/dL Lactic Acid (0.5-2.0) mmol/L Calcium (8.4-10.2) mg/dL Total Bilirubin (0.0-1.0) mg/dL AST (5-31) U/L ALT (0-31) U/L Alkaline Phosphatase (39-117) U/L Total Protein (6.5-8.0) g/dL Albumin (3.5-5.0) g/dL Lipase (8-78) U/L Beta HCG, Quant mIU/mL Urine Color Urine Appearance Urine pH (5.0-8.0) Ur Specific [place] (1.005-1.025) Urine Protein (NEG-TRACE) MG/DL Urine Glucose (UA) (NEG) MG/DL Urine Ketones (NEG) MG/DL Urine Blood (NEG) Urine Nitrite (NEG) Ur Leukocyte Esterase (NEG) Urine RBC (0) /HPF Urine WBC (0-4) /HPF Ur Squamous Epith Cells /LPF Urine Bacteria /LPF COVID-19 (IVETTE) (Negative) COVID-19 Clin Com Blood Type O Positive Antibody Screen NEGATIVE Discharge Plan Discharge Clinical Impression: Abdominal pain Qualifiers: Abdominal location: left lower quadrant Qualified Code(s): R10.32 - Left lower quadrant pain Patient Disposition: Home, Self-Care Instructions: Abdominal Pain (ED) Additional Instructions: Your blood work was unremarkable. The CT scan of your abdomen pelvis with IV contrast did not reveal a clear cause for your pain. The abdominal wall bleeding (rectus sheath hematoma) and the blood in your lower abdomen looks better on this CT scan than it did before which is reassuring I did discuss your abdominal pain, laboratory findings and CT scan with the physician offset assistant press operator who is covering the bariatric service. The plan is to send you home and you can take Tylenol for pain. For pain not relieved by Tylenol you can take oxycodone. Call the office tomorrow morning for follow-up. Please return to the emergency department if your symptoms get worse or if you develop any symptoms that are concerning to you. Prescriptions: New oxycodone 5 mg tablet 5 mg PO Q4H PRN (Reason: pain) Qty: 10 0RF Rx Instructions: Patient may request partial fill; Partial Fill upon patient request. No Action levothyroxine 125 mcg tablet 125 mcg PO DAILY 30 Days Qty: 30 3RF pantoprazole 40 mg tablet,delayed release (DR/EC) 40 mg PO DAILY Qty: 30 2RF sucralfate 100 mg/mL suspension 10 ml PO BID Qty: 400 2RF ondansetron HCl 4 mg tablet 4 mg PO Q12H Qty: 20 0RF
[2021-09-08 14:09] LABS: MANUAL DIFF FLAG NO
[2021-09-08] MEDS: ondansetron HCL 4 MG/2 ML VIAL IVPUSH (14:13)
[2021-09-08] MEDS: Morphine Sulfate 4 MG/ML CARTRIDGE IVPUSH (14:13)
[2021-09-08 14:21] LABS: Lactic Acid 0.8 mmol/L (0.5-2.0)
[2021-09-08 14:24] LABS: Appearance Urine CLEAR; Color Urine YELLOW; Glucose Urine UA NEG (NEG); Leukocyte Esterase Urine NEG (NEG); Nitrite Urine NEG (NEG); Specific Gravity - Urine <= 1.005 (1.005-1.025); UACC Culture Trigger NO; Urine Blood TRACE (NEG); Urine Ketones 40 MG/DL (NEG); Urine Protein NEG (NEG-TRACE)
[2021-09-08 14:26] LABS: Basophils Percent Auto 0.3 % (0-2); Eosinophils Absolute Auto 0.3 X10*3/uL (0.0-0.4); Eosinophils Percent Auto 2.4 % (0-4); Hematocrit 32.7 % (37.0-47.0); Hemoglobin 10.5 g/dl (12.0-16.0); Imm Gran Abs Auto 0.06 X10*3/uL (0.00-0.03); Imm Gran Pct Auto 0.6 % (0.0-0.4); Lymphocytes Absolute Auto 1.7 X10*3/uL (1.2-4.9); Lymphocytes Percent Auto 16.2 % (20-40); Mean Corpuscular HGB Conc 32.1 g/dl (31.0-35.0); Mean Corpuscular Hemoglobin 27.1 pg (27.0-33.0); Mean Corpuscular Volume 84.3 fL (80.0-98.0); Mean Platelet Volume 11.4 fL (9.4-12.3); Monocytes Absolute Auto 0.9 X10*3/uL (0.1-1.2); Neutrophils Absolute Auto 7.8 x10*3/uL (2.0-8.3); Neutrophils Percent Auto 72.5 % (45-73); Platelet Count 391 X10*3/uL (160-400); Red Blood Count 3.88 X10*6/uL (4.20-5.50); Red Cell Distribution Width 14.5 % (11.0-16.0); White Blood Count 10.7 X10*3/uL (4.8-10.8)
[2021-09-08 14:27] LABS: Alanine Aminotransferase 23 U/L (0-31); Alkaline Phosphatase 74 U/L (39-117); Anion Gap 13 (12-20); Aspartate Amino Transferase 23 U/L (5-31); Bilirubin Total 1.5 mg/dL (0.0-1.0); Blood Urea Nitrogen 14 mg/dL (9-16); Calcium 9.3 mg/dL (8.4-10.2); Carbon Dioxide 25 mmol/L (22-29); Chloride 102 mmol/L (96-108); Creatinine Clr Calc Pharmacy 116.5; Estimated Glomerular Filt Rate > 60; Glucose Random 77 mg/dL (60-115); Lipase 28 U/L (8-78); Potassium 4.1 mmol/L (3.3-5.1); Sodium 136 mmol/L (135-145)
[2021-09-08] MEDS: 0.9 % Sodium Chloride 1,000 ML 999 ML IV (14:27)
[2021-09-08 14:32] LABS: Bacteria Urine TRACE /LPF; Squamous Epithelial Cell Urine 2+ /LPF
[2021-09-08 14:32] LABS: COVID-19 Test Negative (Negative); IDNOW Serial# 16C4AD1C
[2021-09-08 14:33] LABS: HCG Quantitative < 2 mIU/mL
[2021-09-08 14:34] LABS: INTERNATIONAL NORM RATIO 1.2 (0.9-1.1); Prothrombin Time 14.1 SEC (9.9-13.0)
[2021-09-08 14:37] LABS: Partial Thromboplastin Time 35.3 SEC (24.1-38.0)
[2021-09-08] MEDS: iohexoL 350 MG/ML 100 ML INFUS..BTL IV (14:49)
[2021-09-08 15:46] VITALS: BP 101/44; PULSE 56; RESP 18; O2SAT 99
== END 2021-09-08 17:40 | disposition home or self-care (01) ==
PROVIDERS: Emergency Provider Emergency Medicine Emergency Medical Services; PCP Internal Medicine
DX: R33.9 Retention of urine, unspecified (principal); R10.32 Left lower quadrant pain; Z98.84 Bariatric surgery status; Z20.822 Contact with and (suspected) exposure to COVID-19; Z79.899 Other long term (current) drug therapy
CPT/HCPCS: 74177; 80053; 81001; 83605; 83690; 84702; 85025; 85610; 85730; 86850; 86900; 86901; 87040; 87635; 96365; 96366; 96375; 99284; J2270; J2405; Q9967

== ENCOUNTER 2021-10-09 13:18 | Outpatient (REF) | payer MEDICAID, SELFPAY ==
--- NOTE | ~2021-10-09 | US_ITS ---
EXAMINATION: US THYROID CLINICAL INFORMATION: Hypothyroidism, unspecified. COMPARISON: No similar priors. TECHNIQUE: Linear transducer grayscale and color Doppler examination with attention to the region of the thyroid. FINDINGS: SIZE: Measurements of the thyroid lobes and nodules are given in sagittal, anteroposterior and transverse dimensions respectively. Right Thyroid Lobe: 2.8 x 0.8 x 0.9 cm, volume 1.1 mL. Parenchyma: The gland echotexture is heterogeneous. Thyroid vascularity is normal. Left Thyroid Lobe: 2.8 x 0.6 x 0.8 cm, volume 0.7 mL. Parenchyma: The gland echotexture is heterogeneous. Thyroid vascularity is normal. Isthmus: 0.1 cm in maximum AP dimension. No focal thyroid nodule is seen. NODES: There is a 0.8 x 0.3 x 0.5 cm lymph node inferior and lateral to the left lobe of the thyroid with an elliptical shape and preserved fatty alan. The cortex does not appears to be thickened. US/US thyroid IMPRESSION: Heterogeneous thyroid gland, likely associated with known hypothyroidism. Correlate with thyroid blood work and antibodies. A 0.8 cm lymph node inferior and lateral to the left lobe of the thyroid demonstrates a benign morphology, however it is slightly more prominent than usual for this site, and therefore a follow-up examination is recommended to ensure stability/resolution.
== END 2021-10-09 13:19 | disposition home or self-care (01) ==
LOC: HO.US 13:18
PROVIDERS: Visit Provider Internal Medicine
DX: E03.9 Hypothyroidism, unspecified (principal)
CPT/HCPCS: 76536

== ENCOUNTER 2021-12-19 11:39 | Outpatient (REF) | payer MEDICAID, SELFPAY ==
[2021-12-19 13:05] LABS: Free T4 (Free Thyroxine) 1.35 ng/dL (0.71-1.85); Thyroid Stimulating Hormone 0.03 uIU/mL (0.32-4.0); Vitamin D 25-OH Total 45.5 ng/mL (>30)
[2021-12-20 19:56] LABS: Follicle Stimulating Hormone 2.9 mIU/mL; Lutenizing Hormone 0.9 mIU/mL; Prolactin 10.5 ng/mL
[2021-12-23 04:42] LABS: Estradiol Ultra Sensitive 98 pg/mL
== END 2021-12-19 11:40 | disposition home or self-care (01) ==
LOC: HO.LAB 11:39
PROVIDERS: Absent Provider Internal Medicine; PCP Internal Medicine; Visit Provider Internal Medicine
DX: Z00.00 Encounter for general adult medical examination without abnormal findings (principal); R79.89 Other specified abnormal findings of blood chemistry; E55.9 Vitamin D deficiency, unspecified; E89.0 Postprocedural hypothyroidism; Z13.31 Encounter for screening for depression; Z98.84 Bariatric surgery status
CPT/HCPCS: 36415; 82306; 82670; 83001; 83002; 84146; 84439; 84443

== ENCOUNTER → 2022-01-09 13:45 | Outpatient (BNVA) | payer MEDICAID, SELFPAY | PROVIDERS: PCP Internal Medicine; Visit Provider Dietitian, Registered | DX: E66.3 Overweight (principal); Z68.29 Body mass index [BMI] 29.0-29.9, adult | CPT/HCPCS: 97803 ==

== ENCOUNTER 2022-01-21 09:47 | Outpatient (REF) | payer MEDICAID, SELFPAY ==
[2022-01-21 12:27] LABS: Free T4 (Free Thyroxine) 1.24 ng/dL (0.71-1.85); Thyroid Stimulating Hormone 0.11 uIU/mL (0.32-4.0)
== END 2022-01-21 09:48 | disposition home or self-care (01) ==
LOC: HO.LAB 09:47
PROVIDERS: Absent Provider Internal Medicine; PCP Internal Medicine; Referring Provider Internal Medicine; Visit Provider Physician Assistant Surgical
DX: E66.3 Overweight (principal); E89.0 Postprocedural hypothyroidism
CPT/HCPCS: 36415; 84439; 84443; 99212

== ENCOUNTER → 2022-01-22 13:34 | Outpatient (BNVA) | payer MEDICAID, SELFPAY | PROVIDERS: PCP Internal Medicine; Visit Provider Internal Medicine | DX: E03.9 Hypothyroidism, unspecified (principal); R79.89 Other specified abnormal findings of blood chemistry | CPT/HCPCS: 99212 ==

== ENCOUNTER 2022-01-31 13:03 | Outpatient (REF) | payer MEDICAID, SELFPAY ==
[2022-02-01 10:23] LABS: BV Int Neg Control Negative (Negative); BV Int Pos Control Positive (Positive)
== END 2022-01-31 13:04 | disposition home or self-care (01) ==
LOC: HO.LNP 13:03
PROVIDERS: Visit Provider Advanced Practice Midwife
DX: N76.0 Acute vaginitis (principal); B96.89 Other specified bacterial agents as the cause of diseases classified elsewhere
CPT/HCPCS: 87480; 87510; 87660

== ENCOUNTER 2022-02-12 19:26 | Emergency (ER) | payer MEDICAID, SELFPAY ==
--- NOTE | 2022-02-12 19:54 | ED_ITS ---
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 Tetanus unknown. Denies injury to the area, numbness, tingling, weakness Onset (ago): hour(s) Related Data Home Medications Medication Instructions Recorded Confirmed biotin PO DAILY 01/21/22 01/31/22 celebrate MVI PO DAILY 01/21/22 01/31/22 celebrate mathew+D PO BID 01/21/22 01/31/22 Previous Rx's Medication Instructions Recorded levothyroxine 100 mcg capsule 100 mcg PO DAILY 30 days #30 caps 01/22/22 metronidazole 0.75 % (37.5 mg/5 1 appful vaginal BID 5 days #70 01/31/22 gram) vaginal gel grams Allergies Allergy/AdvReac Type Severity Reaction Status Date / Time No Known Allergies Allergy Verified 01/31/22 12:31 [No Known Allergies*] Review of Systems Review of Systems: Constitutional: No Fever, No Chills ENT/Mouth: No Ear Pain, No Nasal Congestion, No sore throat, No Rhinorrhea, No Swallowing Difficulty Cardiovascular: No Chest Pain, No SOB Respiratory: No Cough, No Sputum, Gastrointestinal: No Nausea, No Vomiting, No Abdominal pain Genitourinary: No Dysuria, No Urinary Frequency,No Flank Pain Musculoskeletal: No joint pain, No Myalgias, No Joint Swelling Skin: + Skin Lesions, No rash Neuro: No Weakness, No Numbness, No Paresthesias Yes all other systems are reviewed and are negative Constitutional: Constitutional: Reports as per HPI Neurologic: Denies Sensory deficit (Neuro) [facility] Past Medical History Attestation statement: The following information was validated with the patient. Medical History Back pain Elevated prolactin level GERD (gastroesophageal reflux disease) History of Graves' disease Hypothyroidism Knee pain Liver fibrosis Morbid obesity Obesity Postablative hypothyroidism Steatosis, liver Vitamin D deficiency Surgical History Hx of section Hx of cholecystectomy Status post sleeve gastrectomy Family History Family History Father Hypertension Mother Thyroid disease Maternal Grandmother Family history of diabetes mellitus (DM) Hypertension Thyroid disease Paternal Grandmother Hypertension Paternal Grandfather No problems noted. Social History Social History Household Members: Spouse Housing: Apartment Are you a primary childcare worker to a significant other at home: No Do you presently have visiting nurse or other home services: No Alcohol intake: never Patient Tobacco Use Status: Never used Tobacco Advance Directives: No Advance Directives Information Provided: Yes service: No Current occupational status: employed Sexual orientation: Lesbian/Briones/Homosexual Physical Exam Vital Signs: Vital Signs: Last Vital Signs Temp 98.4 F 02/12/22 20:01 Pulse 62 02/12/22 20:01 Resp 16 02/12/22 20:01 BP 103/57 L 02/12/22 20:01 Pulse Ox 100 02/12/22 20:01 O2 Del Method 02/12/22 20:01 BMI result Body Mass Index 30.3 Const: General: cooperative, healthy appearing and no acute distress Orientation/consciousness: patient oriented x3 Limitations: no limitations HEENT: Head: Yes normal to inspection and Yes atraumatic Ears: hearing grossly normal bilaterally General nose exam: Normal external nose present Face and sinus: Yes normal facial exam Eyes: General: appearance normal, both eyes and all related structures EOM: EOMs intact bilaterally Neck: Neck: Yes normal visual inspection and Yes no meningeal signs Resp: Effort & Inspection: normal respiratory effort and no respiratory distress Cardio: Rate: regular rate Heart sounds: S1 normal heart sound present and S2 normal heart sound present Peripheral pulses: radial pulses present and ulnar radial pulses present Skin: Other: + 1 cm superficial laceration noted to left palm with subcutaneous tissue notable. No active bleeding. Neurovascularly intact. Full range of motion to hand/digits intact. Finger to thumb opposition intact Rashes: no rashes Neuro: General: patient oriented x3, tone normal and no meningeal signs Gait exam (Neuro): Normal gait present Sensory Exam: No Sensory deficit (Neuro) Extrem: General: Yes normal to inspection Medications Administered Discontinued Medications Generic Name Dose Route Start Last Admin Trade Name Dany PRN Reason Stop Dose Admin Diphtheria/Tetanus/Acell Pertussis 0.5 ml 02/12/22 19:53 02/12/22 20:03 Diphth,Pertus(Acell),Tet Adult 0.5 Ml Syringe IM 02/12/22 19:54 0.5 ml .ONCE ONE Administration Lidocaine HCl 2 ml 02/12/22 19:53 02/12/22 20:01 Lidocaine Hcl 1 % Mpf 2 Ml Vial INFILTRATI 02/12/22 19:54 2 ml ONCE ONE Administration MDM - Wound/Laceration MDM Narrative Medical decision making narrative: 36-year-old female with a past medical history of GERD, Graves disease, obesity, vitamin-D deficiency, presenting to the ED complaining of laceration to left hand 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 On exam vital signs stable, NAD, physical exam as above Will update tetanus and repair wound Differential Diagnosis Differential diagnosis: Likely laceration Medical Records Attestation: I reviewed the patient's medical records. Lab Data Attestation: I reviewed the patient's lab results. Procedures Laceration Laceration 1: Site: hand Side (If applicable): left Size (cm): 1 Description: linear Depth: simple, single layer Local Anesthetic: lidocaine 1% Amount of anesthesia used (mL): 1.5 Pre-repair: wound explored Skin layer closed with: nylon Size (cm): 5-0 Number of sutures: 2 Technique: simple, interrupted Discharge Plan Discharge Clinical Impression: Hand laceration Patient Disposition: Home, Self-Care Instructions: Laceration (ED) Additional Instructions: Your wounds were repaired today in the emergency department. Keep dry and clean. You need to return to any emergency department, urgent care, or your PCPs office in 7-10 days for suture removal Apply bacitracin and or Neosporin daily Once sutures are removed apply anti scar cream like Mederma If area begins look infected, is red, there is drainage, streaking, or you have fever please return to the emergency department Prescriptions: No Action celebrate MVI PO DAILY celebrate mathew+D PO BID biotin PO DAILY metronidazole 0.75 % (37.5mg/5 gram) gel 1 appful vaginal BID 5 Days Qty: 70 2RF levothyroxine 100 mcg capsule 100 mcg PO DAILY 30 Days Qty: 30 3RF Referrals: Edilma Reagan MD [Primary Care Provider] - 1 week (For suture removal) ED Physician,Jadon [Emergency Provider] - 1 week (For suture removal)
[2022-02-12 20:01] VITALS: BP 103/57; PULSE 62; RESP 16; TEMP 36.9; O2SAT 100; BMI 30.3
[2022-02-12] MEDS: Lidocaine HCl 1 % MPF 2 ML VIAL INFILTRATI (20:01)
[2022-02-12] MEDS: Diphth,Pertus(ACell),Tet Adult 0.5 ML SYRINGE IM (20:03)
== END 2022-02-12 20:25 | disposition home or self-care (01) ==
PROVIDERS: Emergency Provider Emergency Medicine; PCP Internal Medicine
DX: S61.412A Laceration without foreign body of left hand, initial encounter (principal); S60.512A Abrasion of left hand, initial encounter; W26.9XXA Contact with unspecified sharp object(s), initial encounter; Y93.9 Activity, unspecified; Y92.9 Unspecified place or not applicable; Y99.9 Unspecified external cause status
CPT/HCPCS: 12001; 90471; 90715; 96372; 99282; 99284

== ENCOUNTER 2022-03-06 11:20 | Outpatient (REF) | payer MEDICAID, SELFPAY ==
[2022-03-06 11:44] LABS: MANUAL DIFF FLAG NO
[2022-03-06 11:56] LABS: Basophils Percent Auto 0.6 % (0-2); Eosinophils Absolute Auto 0.2 X10*3/uL (0.0-0.4); Hematocrit 37.5 % (37.0-47.0); Hemoglobin 12.4 g/dl (12.0-16.0); Imm Gran Abs Auto 0.01 X10*3/uL (0.00-0.03); Imm Gran Pct Auto 0.2 % (0.0-0.4); Lymphocytes Absolute Auto 1.7 X10*3/uL (1.2-4.9); Lymphocytes Percent Auto 26.9 % (20-40); Mean Corpuscular HGB Conc 33.1 g/dl (31.0-35.0); Mean Corpuscular Hemoglobin 29.9 pg (27.0-33.0); Mean Corpuscular Volume 90.4 fL (80.0-98.0); Mean Platelet Volume 11.6 fL (9.4-12.3); Monocytes Absolute Auto 0.4 X10*3/uL (0.1-1.2); Monocytes Percent Auto 7.1 % (2-11); Neutrophils Absolute Auto 3.9 x10*3/uL (2.0-8.3); Neutrophils Percent Auto 62.2 % (45-73); Platelet Count 284 X10*3/uL (160-400); Red Blood Count 4.15 X10*6/uL (4.20-5.50); Red Cell Distribution Width 12.5 % (11.0-16.0); White Blood Count 6.2 X10*3/uL (4.8-10.8)
[2022-03-06 12:06] LABS: Estimated Average Glucose 91 mg/dL; Hemoglobin A1c % 4.8 %
[2022-03-06 13:12] LABS: Free T4 (Free Thyroxine) 1.08 ng/dL (0.71-1.85)
[2022-03-06 13:43] LABS: Alanine Aminotransferase 19 U/L (0-31); Albumin Level 4.3 g/dL (3.5-5.0); Alkaline Phosphatase 72 U/L (39-117); Anion Gap 9 (12-20); Aspartate Amino Transferase 21 U/L (5-31); Bilirubin Total 0.9 mg/dL (0.0-1.0); Blood Urea Nitrogen 13 mg/dL (9-16); C Reactive Protein < 0.10 mg/dL (< or = 0.50); Calcium 9.6 mg/dL (8.4-10.2); Carbon Dioxide 29 mmol/L (22-29); Chloride 103 mmol/L (96-108); Cholesterol 125 mg/dL; Estimated Glomerular Filt Rate > 60; Ferritin 22 ng/mL (10-122); Glucose Random 82 mg/dL (60-115); HDL Cholesterol 45 mg/dL; Insulin 3 uU/mL (2-29); Iron 56 mcg/dL (30-160); LDL Cholesterol Calculated 71 mg/dl; Percent Iron Saturation 18 % (15-50); Potassium 4.5 mmol/L (3.3-5.1); Sodium 136 mmol/L (135-145); Total Iron Binding Capacity 309 mcg/dL (228-428); Total Protein 6.9 g/dL (6.5-8.0); Triglycerides 49 mg/dL; Unsaturated Iron Binding 253 ug/dL; Vitamin D 25-OH Total 41.2 ng/mL (>30)
[2022-03-06 13:59] LABS: Folate > 20.0 ng/mL (> or = 4.0); Vitamin B12 629 pg/mL (200-900)
[2022-03-10 11:54] LABS: Calcium (PTHI) 9.5 mg/dL (8.6-10.2); PTHI 28 pg/mL (16-77)
[2022-03-11 17:58] LABS: Zinc 99 mcg/dL (60-130)
[2022-03-12 13:23] LABS: Vitamin B1 34 nmol/L (8-30)
[2022-03-12 14:24] LABS: Vitamin A 37 mcg/dL (38-98)
== END 2022-03-06 11:21 | disposition home or self-care (01) ==
LOC: HO.LAB 11:20
PROVIDERS: Absent Provider Internal Medicine; PCP Internal Medicine; Visit Provider Physician Assistant Surgical
DX: E66.9 Obesity, unspecified (principal); E89.0 Postprocedural hypothyroidism; Z90.3 Acquired absence of stomach [part of]
CPT/HCPCS: 36415; 80053; 80061; 82306; 82607; 82728; 82746; 83036; 83525; 83540; 83970; 84425; 84439; 84443; 84590; 84630; 85025; 86140

== ENCOUNTER → 2022-06-04 10:58 | Outpatient (BNVA) | payer MEDICAID, SELFPAY | PROVIDERS: PCP Internal Medicine; Visit Provider Physician Assistant Surgical ==

== ENCOUNTER 2022-06-23 11:06 | Outpatient (REF) | payer MEDICAID, SELFPAY ==
[2022-06-23 12:41] LABS: Thyroid Stimulating Hormone 1.26 uIU/mL (0.32-4.0)
== END 2022-06-23 11:07 | disposition home or self-care (01) ==
LOC: HO.LAB 11:06
PROVIDERS: PCP Internal Medicine; Visit Provider Internal Medicine
DX: E89.0 Postprocedural hypothyroidism (principal)
CPT/HCPCS: 36415; 84439; 84443

== ENCOUNTER 2022-07-25 10:23 | Outpatient (REF) | payer MEDICAID, SELFPAY ==
[2022-07-25 10:38] LABS: MANUAL DIFF FLAG NO
[2022-07-25 10:51] LABS: Basophils Absolute Auto 0.1 X10*3/uL (0.0-0.2); Basophils Percent Auto 0.8 % (0-2); Eosinophils Absolute Auto 0.2 X10*3/uL (0.0-0.4); Eosinophils Percent Auto 3.5 % (0-4); Hematocrit 39.2 % (37.0-47.0); Hemoglobin 12.9 g/dl (12.0-16.0); Imm Gran Abs Auto 0.02 X10*3/uL (0.00-0.03); Imm Gran Pct Auto 0.3 % (0.0-0.4); Lymphocytes Absolute Auto 1.7 X10*3/uL (1.2-4.9); Lymphocytes Percent Auto 27.3 % (20-40); Mean Corpuscular HGB Conc 32.9 g/dl (31.0-35.0); Mean Corpuscular Hemoglobin 30.4 pg (27.0-33.0); Mean Corpuscular Volume 92.5 fL (80.0-98.0); Mean Platelet Volume 11.3 fL (9.4-12.3); Monocytes Absolute Auto 0.6 X10*3/uL (0.1-1.2); Monocytes Percent Auto 9.3 % (2-11); Neutrophils Absolute Auto 3.7 x10*3/uL (2.0-8.3); Neutrophils Percent Auto 58.8 % (45-73); Platelet Count 256 X10*3/uL (160-400); Red Blood Count 4.24 X10*6/uL (4.20-5.50); Red Cell Distribution Width 11.7 % (11.0-16.0); White Blood Count 6.3 X10*3/uL (4.8-10.8)
[2022-07-25 12:52] LABS: Alanine Aminotransferase 16 U/L (0-31); Albumin Level 4.2 g/dL (3.5-5.0); Alkaline Phosphatase 60 U/L (39-117); Anion Gap 12 (12-20); Aspartate Amino Transferase 18 U/L (5-31); Blood Urea Nitrogen 14 mg/dL (9-16); Calcium 9.2 mg/dL (8.4-10.2); Carbon Dioxide 27 mmol/L (22-29); Chloride 106 mmol/L (96-108); Cholesterol 130 mg/dL; Estimated Glomerular Filt Rate > 60; Glucose Random 70 mg/dL (60-115); HDL Cholesterol 50 mg/dL; LDL Cholesterol Calculated 72 mg/dl; Potassium 4.6 mmol/L (3.3-5.1); Sodium 140 mmol/L (135-145); Total Protein 6.8 g/dL (6.5-8.0); Triglycerides 42 mg/dL
[2022-07-25 12:55] LABS: TSH reflex Free T4 3.41 uIU/mL (0.32-4.0)
== END 2022-07-25 10:24 | disposition home or self-care (01) ==
LOC: HO.LAB 10:23
PROVIDERS: PCP Internal Medicine; Visit Provider Internal Medicine
DX: E89.0 Postprocedural hypothyroidism (principal); K14.0 Glossitis; R43.2 Parageusia
CPT/HCPCS: 36415; 80053; 80061; 84443; 85025

== ENCOUNTER → 2022-07-28 11:26 | Outpatient (BNVA) | payer MEDICAID, SELFPAY | PROVIDERS: PCP Internal Medicine; Visit Provider Internal Medicine | DX: E03.9 Hypothyroidism, unspecified (principal); R79.89 Other specified abnormal findings of blood chemistry | CPT/HCPCS: 99212 ==

== ENCOUNTER 2022-08-14 13:18 | Outpatient (REF) | payer MEDICAID, SELFPAY ==
[2022-08-14 15:05] LABS: Free T4 (Free Thyroxine) 0.96 ng/dL (0.71-1.85); Thyroid Stimulating Hormone 2.67 uIU/mL (0.32-4.0)
== END 2022-08-14 13:19 | disposition home or self-care (01) ==
LOC: HO.LAB 13:18
PROVIDERS: PCP Internal Medicine; Visit Provider Internal Medicine
DX: E03.9 Hypothyroidism, unspecified (principal)
CPT/HCPCS: 36415; 84439; 84443

== ENCOUNTER 2022-09-18 09:25 | Outpatient (REF) | payer MEDICAID, SELFPAY ==
[2022-09-18 11:02] LABS: Iron 63 mcg/dL (30-160); Percent Iron Saturation 18 % (15-50); Total Iron Binding Capacity 353 mcg/dL (228-428); Unsaturated Iron Binding 290 ug/dL
[2022-09-18 11:19] LABS: Ferritin 10 ng/mL (10-122)
[2022-09-18 11:27] LABS: Folate 17.5 ng/mL (> or = 4.0); Vitamin B12 675 pg/mL (200-900)
[2022-09-19 16:24] LABS: Calcium (PTHI) 9.2 mg/dL (8.6-10.2); PTHI 48 pg/mL (16-77)
[2022-09-23 01:12] LABS: Vitamin B1 15 nmol/L (8-30)
[2022-09-23 03:28] LABS: Zinc 69 mcg/dL (60-130)
[2022-09-24 20:24] LABS: Vitamin A 47 mcg/dL (38-98)
== END 2022-09-18 09:26 | disposition home or self-care (01) ==
LOC: HO.LAB 09:25
PROVIDERS: PCP Internal Medicine; Visit Provider Physician Assistant Surgical
DX: Z90.3 Acquired absence of stomach [part of] (principal)
CPT/HCPCS: 36415; 82306; 82607; 82728; 82746; 83540; 83970; 84425; 84590; 84630; 99212

== ENCOUNTER 2022-11-16 18:21 | Emergency (ER) | payer OTHER, MEDICAID, SELFPAY ==
--- NOTE | ~2022-11-16 | CT_ITS ---
EXAMINATION: CT ABDOMEN AND PELVIS WITHOUT CONTRAST CLINICAL INFORMATION: Left upper quadrant and flank pain. COMPARISON: CT abdomen and pelvis dated 09/08/2021. TECHNIQUE: Multidetector volumetric imaging was performed from the superior aspect of the liver through the pubic symphysis. Sagittal and coronal reformatted images were obtained on the technologist's workstation. This CT examination was performed using dose optimization techniques as appropriate, variously including the following: *Automated exposure control *Adjustment of mA and/or kV according to patient size (this includes techniques or standardized protocols for targeted exams where dose is matched to indication/reason for exam; i.e. extremities or head) *Use of iterative reconstruction technique DLP: 10/10/2019. mGy-cm FINDINGS: LUNG BASES: The visualized lung bases are unremarkable. LIVER, GALLBLADDER, AND BILIARY TREE: The liver is normal in size, shape, and attenuation. No focal hepatic lesion or biliary ductal dilatation is present. The gallbladder is surgically absent. PANCREAS: Unremarkable. SPLEEN: Unremarkable. ADRENAL GLANDS: Unremarkable. KIDNEYS AND URETERS: The kidneys are normal in size, shape, and attenuation. No hydronephrosis, hydroureter, or calculi seen. No perinephric stranding. BLADDER: Unremarkable. GASTROINTESTINAL TRACT: The small and large bowel are unremarkable. The appendix is unremarkable. ABDOMINAL WALL: No significant hernia is appreciated. LYMPH NODES: Normal. VASCULAR: Unremarkable. PELVIC VISCERA: Uterus and bilateral ovaries are unremarkable. There is a small amount of free fluid within the left adnexal region and the right dependent pelvis (24:64 and 66). OSSEOUS STRUCTURES: There is multi-level thoracolumbar spondylosis. No acute or aggressive osseous abnormality is seen. CT/CT abdomen pelvis wo IV con IMPRESSION: 1. There is no bowel obstruction, free intraperitoneal air or abscess. No appendicitis or diverticulitis is seen. 2. There is no urinary calculus or obstruction seen. 3. No abdominopelvic mass, free fluid or lymphadenopathy is seen. 4. There is a small amount of nonspecific free fluid within the left adnexal region and the dependent pelvis. 5. There is no acute or aggressive osseous finding. Fleischner guidelines were followed.
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
[2022-11-16 18:34] VITALS: BP 116/49; PULSE 71; RESP 18; TEMP 36.6; O2SAT 98; BMI 32.8
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
[2022-11-16] MEDS: Ibuprofen 600 MG TABLET PO (21:09)
[2022-11-16] MEDS: oxyCODONE HCl Immed Release 5 MG TABLET PO (21:10)
[2022-11-16 21:47] LABS: UPreg QC Valid YES; Urine Pregnancy NEGATIVE (NEGATIVE)
[2022-11-16 23:03] LABS: Appearance Urine Clear; Color Urine Yellow; Glucose Urine UA Negative (Negative); Leukocyte Esterase Urine Negative (Negative); Nitrite Urine Negative (Negative); PH 6.5 (5.0-9.0); Specific Gravity - Urine 1.025 (1.005-1.025); Urine Blood Negative (Negative); Urine Ketones Negative (Negative); Urine Protein Negative (Neg-Trace)
== END 2022-11-16 23:25 | disposition home or self-care (01) ==
PROVIDERS: Emergency Provider Emergency Medicine; PCP Internal Medicine
DX: Z04.1 Encounter for examination and observation following transport accident (principal); R10.12 Left upper quadrant pain; R51.9 Headache, unspecified
CPT/HCPCS: 70450; 72125; 74176; 81003; 81025; 99283; 99284

== ENCOUNTER 2022-11-20 10:42 | Outpatient (REF) | payer MEDICAID, SELFPAY ==
[2022-11-20 12:57] LABS: Free T4 (Free Thyroxine) 0.96 ng/dL (0.71-1.85); Thyroid Stimulating Hormone 1.67 uIU/mL (0.32-4.0)
== END 2022-11-20 10:43 | disposition home or self-care (01) ==
LOC: HO.LAB 10:42
PROVIDERS: PCP Internal Medicine; Visit Provider Internal Medicine
DX: E03.9 Hypothyroidism, unspecified (principal)
CPT/HCPCS: 36415; 84439; 84443

== ENCOUNTER 2023-02-02 10:10 | Outpatient (REF) | payer MEDICAID, SELFPAY ==
[2023-02-02 12:02] LABS: Alanine Aminotransferase 14 U/L (0-31); Albumin Level 4.2 g/dL (3.5-5.0); Alkaline Phosphatase 51 U/L (39-117); Anion Gap 11 (12-20); Aspartate Amino Transferase 18 U/L (5-31); Bilirubin Total 0.9 mg/dL (0.0-1.0); Blood Urea Nitrogen 9 mg/dL (9-16); Calcium 9.3 mg/dL (8.4-10.2); Carbon Dioxide 27 mmol/L (22-29); Chloride 104 mmol/L (96-108); Cholesterol 145 mg/dL (<200); Estimated Glomerular Filt Rate > 60; Glucose Random 88 mg/dL (60-115); HDL Cholesterol 49 mg/dL (>40); LDL Cholesterol Calculated 80 mg/dL (<100); Potassium 4.6 mmol/L (3.3-5.1); Sodium 137 mmol/L (135-145); Total Protein 7.2 g/dL (6.5-8.0); Triglycerides 84 mg/dL (<150)
[2023-02-02 12:10] LABS: HBsAGNum1 0.67 S/CO (0.00-0.99); HIV AB/AG Nonreactive (Nonreactive); HIV Num 1 0.05 S/CO (0.00-0.99); Hepatitis B Surface Antigen Negative (Negative); ~HepC Num1 0.03 S/CO (0.00-0.79); ~Hepatitis C Antibody Nonreactive (Nonreactive)
[2023-02-02 12:13] LABS: Syphilis Screen Nonreactive (Nonreactive)
[2023-02-02 12:17] LABS: Thyroid Stimulating Hormone 3.68 uIU/mL (0.32-4.0)
[2023-02-02 12:57] LABS: CT PCR NOT DETECTED (Not Detect.); NG PCR NOT DETECTED (Not Detect.)
[2023-02-03 10:09] LABS: BV Int Neg Control Negative (Negative); BV Int Pos Control Positive (Positive)
== END 2023-02-02 10:11 | disposition home or self-care (01) ==
LOC: HO.LAB 10:10
PROVIDERS: Absent Provider Internal Medicine; PCP Internal Medicine; Visit Provider Advanced Practice Midwife
DX: Z01.419 Encounter for gynecological examination (general) (routine) without abnormal findings (principal); Z90.3 Acquired absence of stomach [part of]; Z11.3 Encounter for screening for infections with a predominantly sexual mode of transmission; Z00.00 Encounter for general adult medical examination without abnormal findings; E89.0 Postprocedural hypothyroidism; M94.0 Chondrocostal junction syndrome [Tietze]
CPT/HCPCS: 0353U; 36415; 80053; 80061; 84443; 86780; 86803; 87340; 87389; 87480; 87510; 87660; 99395

== ENCOUNTER 2023-02-02 10:10 | Outpatient (AMB) | payer MEDICAID, SELFPAY ==
--- NOTE | 2023-02-02 10:21 | A.OFFVIS_ITS ---
Intake Vital Signs 02/02/23 10:22 Height 5 ft 3 in Weight 193 lb BMI 34.2 BP 108/70 Intake Visit Reasons: NON DESTRUCTIVE EVALUATION SPECIALIST annual exam Disease Control Inspector: Disease Control Inspector Present (Estelle) Allergies No Known Allergies [No Known Allergies*] Allergy (Verified 02/02/23 10:22) Medication List - Last Reconciled 02/02/23 by Radha Espinoza CNM [celebrate MVI PO DAILY] levothyroxine 100 mcg PO DAILY 90 days Is last menstrual period known: Yes Last menstrual period: 01/14/23 HPI NON DESTRUCTIVE EVALUATION SPECIALIST annual exam HPI Details patient is here for licensed clinical psychologist annual exam. Her only licensed clinical psychologist concern is that she is noticing it is getting harder and takes longer to reach orgasm. She is in of relationship with her . She would like testing for STIs. She has her primary care provider and is going to be seeing the insurance agency owner for her thyroid. She had bariatric surgery and did lose a lot of weight but now she has gained some of it back and so she has started this week trying to eat better and get back to regular exercise she has a 2-1/2-year-old delivered by at [facility]. 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 she gets regular periods and thinks she ovulated last week [facility] Medical History Liver fibrosis Steatosis, liver GERD (gastroesophageal reflux disease) Knee pain Back pain Morbid obesity Elevated prolactin level Obesity Vitamin D deficiency History of Graves' disease Postablative hypothyroidism Hypothyroidism Surgical History Status post sleeve gastrectomy Hx of section Hx of cholecystectomy Family History Father Hypertension Mother Thyroid disease Maternal Grandmother Family history of diabetes mellitus (DM) Hypertension Thyroid disease Paternal Grandmother Hypertension Paternal Grandfather No problems noted. Social History Household Members: Spouse Both parents involved: Yes Housing: Apartment Are you a primary transitional care manager to a significant other at home: No Do you presently have visiting nurse or other home services: No Alcohol intake: never Patient Tobacco Use Status: Never used Tobacco service: No Current occupational status: employed Sexual orientation: Lesbian/Briones/Homosexual Female Reproductive History Menstrual Age of Menarche: 10 Duration of menses: 6-7 days Date of last menstrual period: 01/14/23 Total pregnancies: 1 Full term: 1 Number of Living Children: 1 Date of last pap smear: 11/28/20 (neg pap and hpv) History of abnormal pap smear: No Physical Exam Vital Signs: Last Vital Signs BP 108/70 02/02/23 10:22 BMI result Body Mass Index 34.2 Const General: healthy appearing, comfortable, no acute distress, well developed and alert Nutritional Appearance: average body habitus Orientation/consciousness: patient oriented x3 Limitations: no limitations HEENT Head: Yes normocephalic Neck Neck: Yes normal visual inspection Chest Chest palpation & inspection: normal inspection of the chest Breast/axilla inspection: normal inspection of the breasts and normal inspection of the axillae Breast/axilla palpation: normal palpation of the breasts and normal palpation of the axillae Resp Effort & Inspection: normal respiratory effort GI Inspection: Yes normal to inspection, No Abdominal wall edema and No distended Palpation (GI): Soft to palpation and nontender Other: vagina pink moist with scant normal appearing luteal phase white discharge cervix is nulliparous. Uterus midposition nontender mobile good tone with Kegel General: Yes bladder normal to palpation External Female Exam: normal external appearance and normal appearance of the urethra Speculum Exam - Vagina: normal appearance of the vagina, normal palpation and normal vaginal discharge Speculum Exam - Cervix: normal appearance of the cervix, normal palpation and nontender Bimanual exam- vagina & uterus: normal bimanual exam, normal palpation, uterine size normal, bladder normal to palpation, consistency normal, normal palpation, uterine mobility normal, uterine shape normal, No Cervical tenderness present, non-tender and no cervical motion tenderness Bimanual Exam- Adnexa, other: normal adnexae, no masses, normal and No adnexal tenderness Neuro General: patient oriented x3 Assessment & Plan Assessment & Plan (1) Well woman exam with routine gynecological exam: Code(s): Z01.419 - Encounter for gynecological examination (general) (routine) without abnormal findings (2) Cervical cancer screening: Comment: pap done 11/28/20= neg w neg hpv Code(s): Z12.4 - Encounter for screening for malignant neoplasm of cervix (3) Postablative hypothyroidism: Code(s): E89.0 - Postprocedural hypothyroidism (4) Screen for sexually transmitted diseases: Code(s): Z11.3 - Encounter for screening for infections with a predominantly sexual mode of transmission (5) Status post sleeve gastrectomy: Comment: 08/29/21. 01/31/22- has lost 85 lbs. Walks 1' q day Code(s): Z90.3 - Acquired absence of stomach [part of] Plan -----Discussed in this visit the following: healthy balanced diet, regular and consistent exercise, getting recommended health screens, doing the best she can for her particular health concerns, kegel exercises, pap smear screening and followup recommendations, mammography screening and SBE, normal changes in cycles in her life stage--- . testing ordered as requested for STI screening. She will be going to the lab for thyroid level so this is a good time. Applauded her efforts to go back to exercise and trying to eat well so she does not gain all the weight she worked so hard to lose discussed how many issues in our lives can influence sexual function and in particular age can play a role physical fitness how you feel about ourselves relationship issues all are very important and can be difficult to tease out but improvement in all of those areas can help. She was not due for Pap smear she will be due for her 1st mammogram when she turns 38 we will see her next year Orders: Orders Hepatitis C Antibody Today E89.0 - Postprocedural hypothyroidism, Z01.419 - Encounter for gynecological examination (general) (routine) without abnormal findings, Z11.3 - Encounter for screening for infections with a predominantly sexual mode of transmission, Z12.4 - Encounter for screening for malignant neoplasm of cervix, Z90.3 - Acquired absence of stomach [part of] Hepatitis B Surface Antigen Today E89.0 - Postprocedural hypothyroidism, Z01.419 - Encounter for gynecological examination (general) (routine) without abnormal findings, Z11.3 - Encounter for screening for infections with a predominantly sexual mode of transmission, Z12.4 - Encounter for screening for malignant neoplasm of cervix, Z90.3 - Acquired absence of stomach [part of] HIV Ab/Ag Today E89.0 - Postprocedural hypothyroidism, Z01.419 - Encounter for gynecological examination (general) (routine) without abnormal findings, Z11.3 - Encounter for screening for infections with a predominantly sexual mode of transmission, Z12.4 - Encounter for screening for malignant neoplasm of cervix, Z90.3 - Acquired absence of stomach [part of] Syphilis Screen Today E89.0 - Postprocedural hypothyroidism, Z01.419 - Encounter for gynecological examination (general) (routine) without abnormal findings, Z11.3 - Encounter for screening for infections with a predominantly sexual mode of transmission, Z12.4 - Encounter for screening for malignant neoplasm of cervix, Z90.3 - Acquired absence of stomach [part of] Coding Level of Care Code Est Pt Prev Care 18-39y(66172) Diagnoses Well woman exam with routine gynecological exam Z01.419 Cervical cancer screening Z12.4 Postablative hypothyroidism E89.0 Screen for sexually transmitted diseases Z11.3 Status post sleeve gastrectomy Z90.3
[2023-02-02 10:22] VITALS: BP 108/70; BMI 34.2
== END 2023-02-02 11:19 | disposition home or self-care (01) ==
LOC: HO.HWS 10:10
PROVIDERS: PCP Internal Medicine; Visit Provider Advanced Practice Midwife
DX: Z01.419 Encounter for gynecological examination (general) (routine) without abnormal findings (principal); Z12.4 Encounter for screening for malignant neoplasm of cervix; E89.0 Postprocedural hypothyroidism; Z11.3 Encounter for screening for infections with a predominantly sexual mode of transmission; Z90.3 Acquired absence of stomach [part of]
CPT/HCPCS: 99395

== ENCOUNTER 2023-02-02 10:53 | Outpatient (REF) | payer MEDICAID, SELFPAY | END 2023-02-02 10:54 | disposition home or self-care (01) | LOC: HO.LNP 10:53 | PROVIDERS: Visit Provider Advanced Practice Midwife | DX: Z13.89 Encounter for screening for other disorder (principal) ==

== ENCOUNTER 2023-04-16 11:27 | Outpatient (REF) | payer MEDICAID, SELFPAY ==
[2023-04-16 12:53] LABS: Thyroid Stimulating Hormone 1.75 uIU/mL (0.32-4.0)
== END 2023-04-16 11:28 | disposition home or self-care (01) ==
LOC: HO.LAB 11:27
PROVIDERS: PCP Internal Medicine; Visit Provider Internal Medicine
DX: E89.0 Postprocedural hypothyroidism (principal); M25.561 Pain in right knee; R63.5 Abnormal weight gain; Z98.84 Bariatric surgery status
CPT/HCPCS: 36415; 84443

== ENCOUNTER 2023-05-25 15:54 | Outpatient (AMB) | payer MEDICAID, SELFPAY ==
--- NOTE | 2023-05-25 16:02 | MHC.OFFVIS ---
Intake Vital Signs 05/25/23 16:03 Height 5 ft 3 in Weight 195 lb 8.8 oz BMI 34.6 BP 96/64 Blood Pressure Location Lt brachial Position Sitting Pulse 76 Pulse Source Pulse Oximeter Intake Visit Reasons: Hypothyroidism-confirmed Intake Note: Patient presents today for Hypothyroidism follow up visit, last seen by Dr. Sagastume on 07/28/2022. 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 She was previously followed by Dr. Venegas. The patient last saw Dr. Sagastume on 07/28/2022 She was diagnosed with Grave's disease in 2016 and underwent I131 ablation with 10.89 millicurries I-131 02/02/2017. She developed postablative hypothyroidism and remains on levothyroxine 100 mcg PO daily. TSH is above goal of 0.5-2.4, but she does report taking biotin daily. She reports feeling well. She underwent fertility workup prior to this , and prolactin was found to be mildly elevated. She was started on cabergoline, and became shortly after. Cabergoline was stopped. She has now completed breast feeding as of December 2020, and her Prolactin is now normal. Thyroid US: 10/09/2021 Right Thyroid Lobe: 2.8 x 0.8 x 0.9 cm, volume 1.1 mL. Parenchyma: The gland echotexture is heterogeneous. Thyroid vascularity is normal. Left Thyroid Lobe: 2.8 x 0.6 x 0.8 cm, volume 0.7 mL. Parenchyma: The gland echotexture is heterogeneous. Thyroid vascularity is normal. Isthmus: 0.1 cm in maximum AP dimension. No focal thyroid nodule is seen. NODES: There is a 0.8 x 0.3 x 0.5 cm lymph node inferior and lateral to the left lobe of the thyroid with an elliptical shape and preserved fatty alan. The cortex does not appears to be thickened. Labs: Laboratory Tests 06/23/22 07/25/22 11:20 10:36 TSH 3.41 Free T4 1.00 PFSH Medical History Liver fibrosis Steatosis, liver GERD (gastroesophageal reflux disease) Knee pain Back pain Morbid obesity Elevated prolactin level Obesity Vitamin D deficiency History of Graves' disease Postablative hypothyroidism Hypothyroidism Surgical History Status post sleeve gastrectomy Hx of section Hx of cholecystectomy Family History Father Hypertension Mother Thyroid disease Maternal Grandmother Family history of diabetes mellitus (DM) Hypertension Thyroid disease Paternal Grandmother Hypertension Paternal Grandfather No problems noted. Social History Household Members: Spouse Both parents involved: Yes Housing: Apartment Are you a primary healthcare financial analyst to a significant other at home: No Do you presently have visiting nurse or other home services: No Alcohol intake: never Patient Tobacco Use Status: Never used Tobacco service: No Current occupational status: employed Sexual orientation: Lesbian/Briones/Homosexual Female Reproductive History Menstrual Age of Menarche: 10 Physical Exam Vital Signs: Last Vital Signs Pulse 76 05/25/23 16:03 BP 96/64 05/25/23 16:03 BMI result Body Mass Index 34.6 Const Other: Thyroid gland is decrease in size weighs about 5 g . There are no thyroid nodules palpated Assessment & Plan Assessment & Plan (1) Postablative hypothyroidism: Code(s): E89.0 - Postprocedural hypothyroidism Plan: This is a 37-year-old female with a history of post-ablated hypothyroidism. She is currently replaced on 100 mcg levothyroxine. She appears to be clinically and biochemically euthyroid. Plan is to continue the current therapy. At this point, patient returned back to her primary care provider and back to endocrinology as needed Coding Level of Care Code Est Pt Level 3 (68479) Diagnoses Postablative hypothyroidism E89.0
[2023-05-25 16:03] VITALS: BP 96/64; PULSE 76; BMI 34.6
== END 2023-05-25 16:21 | disposition home or self-care (01) ==
PROVIDERS: PCP Internal Medicine; Referring Provider Internal Medicine; Visit Provider Internal Medicine Endocrinology, Diabetes & Metabolism
DX: E89.0 Postprocedural hypothyroidism (principal)
CPT/HCPCS: 99213

== ENCOUNTER → 2023-05-25 15:54 | Outpatient (BNVA) | payer MEDICAID, SELFPAY | PROVIDERS: PCP Internal Medicine; Visit Provider Internal Medicine Endocrinology, Diabetes & Metabolism | DX: E89.0 Postprocedural hypothyroidism (principal) | CPT/HCPCS: 99212 ==

== ENCOUNTER 2023-06-23 14:19 | Emergency (ER) | payer MEDICAID, SELFPAY ==
--- NOTE | ~2023-06-23 | CT_ITS ---
EXAMINATION: CT ABDOMEN AND PELVIS WITH CONTRAST CLINICAL INFORMATION: Epigastric pain, left upper quadrant and left lower quadrant pain. COMPARISON: CT abdomen/pelvis 11/16/2022. TECHNIQUE: Multidetector volumetric images were obtained from the superior aspect of the liver through the pubic symphysis following administration 85 mL of Omnipaque 350 intravenous contrast. Sagittal and coronal reformatted images were obtained on the technologist's workstation. Oral contrast: No This CT examination was performed using dose optimization techniques as appropriate, variously including the following: *Automated exposure control *Adjustment of mA and/or kV according to patient size (this includes techniques or standardized protocols for targeted exams where dose is matched to indication/reason for exam; i.e. extremities or head) *Use of iterative reconstruction technique DLP: 679 mGy-cm FINDINGS: LUNG BASES: The visualized lung bases are unremarkable. LIVER, GALLBLADDER, AND BILIARY TREE: The liver is normal in size, shape, and attenuation. No focal hepatic lesion or biliary ductal dilatation is present. Cholecystectomy. PANCREAS: Unremarkable. SPLEEN: Unremarkable. ADRENAL GLANDS: Unremarkable. KIDNEYS AND URETERS: The kidneys are normal in size, shape, and attenuation. No hydronephrosis, hydroureter, or calculi seen. No perinephric stranding. BLADDER: Unremarkable. GASTROINTESTINAL TRACT: Small hiatal hernia with mild patulous distention of the esophagus and small amount of debris in the lower esophagus. Postsurgical changes from gastric sleeve. The stomach and the small bowel are nondilated. Normal appendix. Mild scattered mesenteric vasculature engorgement and minimal mesenteric fatty haziness. Minimal fluid distention of the right hemicolon and proximal transverse colon. Colonic diverticulosis without significant pericolonic inflammatory changes to suspect acute diverticulitis. No evidence of bowel obstruction. ABDOMINAL WALL: No significant hernia is appreciated. LYMPH NODES: Mildly prominent periportal lymph nodes are unchanged. No lymphadenopathy by CT short axis size criteria. VASCULAR: Normal caliber of the abdominal aorta. PELVIC VISCERA: Mildly prominent left periuterine vessels. Small amount of free fluid in the cul-de-sac, likely physiologic. OSSEOUS STRUCTURES: No acute or aggressive appearing osseous findings. CT/CT abdomen pelvis w IV con IMPRESSION: 1. Mild mesentery vasculature engorgement with minimal mesenteric fatty haziness. Mild fluid distention of the proximal colon. These findings could be related with enteritis and diarrhea in the appropriate clinical context. 2. Small hiatal hernia with debris in the lower esophagus, recommend clinical correlation for reflux disease. 3. Postsurgical changes from gastric sleeve. No evidence of bowel obstruction. 4. Cholecystectomy. 5. Slightly prominent left parametrial/periuterine vessels which could indicate some degree of pelvic venous insufficiency. Recommend clinical correlation.
[2023-06-23 15:03] VITALS: BP 107/78; PULSE 85; RESP 16; TEMP 36.9; O2SAT 100; BMI 34.4
--- NOTE | 2023-06-23 15:05 | ED_ITS ---
HPI - Abdominal Pain General Chief Complaint: Nausea/Vomiting/Diarrhea Stated Complaint: Vomiting Diarrhea Time Seen by Provider: 06/23/23 16:07 Source: patient and RN notes reviewed Mode of arrival: ambulatory Limitations: no limitations History of Present Illness HPI narrative: This is a 37-year-old female, with a history of gastric sleeve surgery 2 years ago, presenting to the emergency department with complaints of nausea, vomiting, diarrhea, and abdominal pain since yesterday. Patient states that she has had approximately 8 episodes of vomiting and diarrhea since yesterday. She states that she ate wings and pizza on Thursday and developed her symptoms yesterday. She endorses subjective fevers and chills. Denies any chest pain, shortness of breath. Denies hemoptysis or bloody/black diarrhea. Denies taking any medications prior to arrival. She was unable to tolerate anything p.o. today due to her symptoms. Denies any urinary frequency, urgency, hematuria. No other complaints or concerns at this time. MD elicited complaint: abdominal pain Pertinent past history: none Onset (ago): day(s) Pain Consistency: constant Location: epigastric, LUQ and LLQ Severity: moderate Quality: cramping Radiation: none Migration to: no migration Exacerbating factors: eating Relieving factors: nothing Context: possible food poisoning Associated symptoms: nausea, vomiting, diarrhea, fever (Subjective) and chills Related Data Home Medications Medication Instructions Recorded Confirmed celebrate MVI PO DAILY 01/21/22 02/02/23 multivitamin 1 tab PO DAILY 05/25/23 Previous Rx's Medication Instructions Recorded levothyroxine 100 mcg capsule 100 mcg PO DAILY 90 days #90 caps 01/30/23 metronidazole 0.75 % (37.5 mg/5 1 appful vaginal BEDTIME 5 days 02/03/23 gram) vaginal gel #70 grams ondansetron 4 mg disintegrating 4 mg PO Q8H #10 tabs 06/23/23 tablet Allergies Allergy/AdvReac Type Severity Reaction Status Date / Time No Known Allergies Allergy Verified 05/25/23 16:05 [No Known Allergies*] Review of Systems Review of Systems Yes all other systems are reviewed and are negative Constitutional: Reports as per [facility] Past Medical History Attestation statement: The following information was validated with the patient. Medical History Liver fibrosis Steatosis, liver GERD (gastroesophageal reflux disease) Knee pain Back pain Morbid obesity Elevated prolactin level Obesity Vitamin D deficiency History of Graves' disease Postablative hypothyroidism Hypothyroidism Surgical History Status post sleeve gastrectomy Hx of section Hx of cholecystectomy Family History Family History Father Hypertension Mother Thyroid disease Maternal Grandmother Family history of diabetes mellitus (DM) Hypertension Thyroid disease Paternal Grandmother Hypertension Paternal Grandfather No problems noted. Social History Social History Household Members: Spouse Housing: Apartment Are you a primary aged or disabled carer to a significant other at home: No Do you presently have visiting nurse or other home services: No Alcohol intake: never Patient Tobacco Use Status: Never used Tobacco Advance Directives: No Advance Directives Information Provided: No service: No Current occupational status: employed Sexual orientation: Lesbian/Briones/Homosexual Physical Exam ED Vital Signs: Vital Signs - 24 hr 06/23/23 15:03 06/23/23 20:26 Temperature 98.4 F 98.2 F Pulse Rate 85 80 Respiratory Rate 16 16 Blood Pressure 107/78 112/76 Pulse Oximetry 100 98 Oxygen Delivery Method Room Air Room Air BMI result Body Mass Index 34.4 Const General: cooperative, comfortable and no acute distress Orientation/consciousness: patient oriented x3 Limitations: no limitations HENMT Head: Yes normal to inspection, Yes normocephalic and Yes atraumatic Ears: hearing grossly normal bilaterally General nose exam: Normal external nose present Face and sinus: Yes normal facial exam Mouth: Normal oral and palatal mucosa present, oropharynx normal and moist mucous membranes Throat: Yes posterior oropharynx normal Eyes General: appearance normal, both eyes and all related structures Eyelids: Yes eyelids normal Conjunctivae: conjunctivae normal Sclerae: sclerae normal Pupils: Equal, round and reactive pupils present EOM: EOMs intact bilaterally Neck Neck: Yes normal visual inspection, Yes full ROM and Yes no lymphadenopathy Lymphatic: no lymphadenopathy noted Chest Chest palpation & inspection: normal inspection of the chest Resp Effort & Inspection: normal respiratory effort and able to speak in complete sentences Auscultation: clear to auscultation bilaterally, no crackles, no rales, no rhonchi and no wheezes Cardio Rate: regular rate Rhythm: regular rhythm Heart sounds: S1 normal heart sound present and S2 normal heart sound present GI Other: Abdomen is soft, with mild tenderness palpation in the epigastrium and left upper and left lower quadrant with guarding. No rebound. Inspection: Yes normal to inspection Skin General skin exam: no rashes or lesions noted Trauma: no lacerations or abrasions Wounds: no wounds Neuro General: patient oriented x3 and moves all extremities Cranial nerves: Yes Equal, round and reactive pupils present Extrem General: Yes normal to inspection Right upper extremity: normal to inspection Left upper extremity: normal to inspection Right lower extremity: normal to inspection Left lower extremity: normal to inspection Course Course Course Narrative: This is a Rapid Medical Examination (RME) in triage, full HPI, ROS, assessment and plan per primary provider in the Main ED. 37 yo female with history of gastric sleeve presents to the ER for evaluation of N/V/D and epigastric abdominal pain that started yesterday. no known sick contacts. Plan: labs, UA, Upreg, zofran Reevaluation(s) Reevaluation #1: Patient re-evaluated, patient reporting feeling slightly improved after receiving IV fluids. Patient does endorse some abdominal pain however denies wanting any pain medication at this time. She has no longer nauseous. Will continue to closely monitor pending CT abdomen and pelvis. Sign-out was given to my colleague, Taz Cruz DNP, pending CT abdomen and pelvis and urinalysis. Time: 19:26 Reevaluation #2: CT/CT abdomen pelvis w IV con IMPRESSION: 1. Mild mesentery vasculature engorgement with minimal mesenteric fatty haziness. Mild fluid distention of the proximal colon. These findings could be related with enteritis and diarrhea in the appropriate clinical context. 2. Small hiatal hernia with debris in the lower esophagus, recommend clinical correlation for reflux disease. 3. Postsurgical changes from gastric sleeve. No evidence of bowel obstruction. 4. Cholecystectomy. 5. Slightly prominent left parametrial/periuterine vessels which could indicate some degree of pelvic venous insufficiency. Recommend clinical correlation Tolerating oral intake. Urinalysis without evidence of infection. Stable for discharge home outpatient follow-up with primary care provider, strict return precautions. Time: 21:22 Medical Decision Making Medical Decision Making [facility] Narrative: This is a 37-year-old female presenting to the emergency department with complaints of abdominal pain, nausea, vomiting and diarrhea since yesterday. On arrival, patient nontoxic appearing, vital signs within normal limits. Differential diagnoses include gastritis, gastro enteritis, electrolyte derangement, diverticulitis, diverticulosis. Less likely small bowel obstruction, acute abdomen. Labs were obtained prior to my assessment, patient has no leukocytosis, no significant electrolyte derangement. Creatinine does not reveal evidence of TAYA. Given patient has a tender abdomen as well as history of gastric sleeve surgery 2 years ago, will obtain CT of the abdomen for further evaluation. Plan: IV fluids, labs, CT abdomen and pelvis Differential Diagnosis Differential Diagnoses: The differential diagnosis associated with the presentation includes See above Admission/Observation Consideration of admission/observation: Escalation of care including admission/observation considered Lab Data [facility] Lab Attestation statement: I reviewed the patient's lab results. No leukocytosis, stable H&H, chemistry within normal limits, no evidence of TAYA. Liver enzymes within normal limits. Normal lipase 06/23/23 15:16 06/23/23 15:16 Labs: Lab Results 06/23/23 06/23/23 Range/Units 15:16 20:04 WBC 5.9 (4.8-10.8) X10*3/uL RBC 4.62 (4.20-5.50) X10*6/uL Hgb 13.0 (12.0-16.0) g/dl Hct 39.5 (37.0-47.0) % MCV 85.5 (80.0-98.0) fL MCH 28.1 (27.0-33.0) pg MCHC 32.9 (31.0-35.0) g/dl RDW 12.8 (11.0-16.0) % Plt Count 268 (160-400) X10*3/uL MPV 11.1 (9.4-12.3) fL Immature Gran % (Auto) 0.5 H (0.0-0.4) % Neut % (Auto) 77.8 H (45-73) % Lymph % (Auto) 9.2 L (20-40) % [place] % (Auto) 11.3 H (2-11) % Eos % (Auto) 1.0 (0-4) % Baso % (Auto) 0.2 (0-2) % Lymph # (Auto) 0.5 L (1.2-4.9) X10*3/uL [place] # (Auto) 0.7 (0.1-1.2) X10*3/uL Eos # (Auto) 0.1 (0.0-0.4) X10*3/uL Baso # (Auto) 0.0 (0.0-0.2) X10*3/uL Abs Immat Gran (auto) 0.03 (0.00-0.03) X10*3/uL Absolute Neuts (auto) 4.6 (2.0-8.3) x10*3/uL Absolute Nucleated RBC 0.000 (0.0-0.012) X10*3/uL Nucleated RBC % (auto) 0.0 (0.0-0.2) /100WBC Sodium 140 (135-145) mmol/L Potassium 4.2 (3.3-5.1) mmol/L Chloride 107 (96-108) mmol/L Carbon Dioxide 25 (22-29) mmol/L Anion Gap 12 (12-20) BUN 8 L (9-16) mg/dL Creatinine 0.75 (0.5-1.4) mg/dL Estim Creat Clear Calc 105.9 Estimated GFR > 60 Random Glucose 92 (60-115) mg/dL Calcium 9.0 (8.4-10.2) mg/dL Magnesium 2.0 (1.6-2.6) mg/dL Total Bilirubin 0.6 (0.0-1.0) mg/dL Direct Bilirubin 0.3 (0.0-0.5) mg/dL AST 21 (5-31) U/L ALT 14 (0-31) U/L Alkaline Phosphatase 68 (39-117) U/L Total Protein 7.5 (6.5-8.0) g/dL Albumin 4.0 (3.5-5.0) g/dL Lipase 13 (8-78) U/L Beta HCG, Quant < 2 mIU/mL Urine Color Yellow Urine Appearance Clear Urine pH 5.5 (5.0-9.0) Ur Specific [place] >= 1.030 H (1.005-1.025) Urine Protein Negative (Neg-Trace) mg/dL Urine Glucose (UA) Negative (Negative) mg/dL Urine Ketones Negative (Negative) mg/dL Urine Blood Trace H (Negative) Urine Nitrite Negative (Negative) Ur Leukocyte Esterase Negative (Negative) Urine RBC 3-5 H (0-2) /HPF Urine WBC 0-5 (0-5) /HPF Ur Squamous Epith Cells 0-2 (0-2) /HPF Urine Bacteria None Seen (None Seen) Hyaline Casts 0-2 (0-2) /LPF Urine Test NEGATIVE (NEGATIVE) Radiology Impression Discussion of test interpretation with radiology: I have reviewed the radiologist's reading. External Record Review External record reviewed: Inpatient record, Office record, Outpatient record, Prior outpatient labs, Prior outpatient radiology, Primary care record and Outside ED record Medications Administered Discontinued Medications Generic Name Dose Route Start Last Admin Trade Name Freq PRN Reason Stop Dose Admin Sodium Chloride 1,000 mls @ 999 mls/hr 06/23/23 17:08 06/23/23 19:03 Ns IV 06/23/23 18:08 Infused .Q1H1M ONE Infusion Iohexol 85 ml 06/23/23 19:01 06/23/23 19:01 Iohexol 350 Mg/Ml 100 Ml Infus..Btl IV 06/23/23 19:02 85 ml ONCE ONE Administration Ondansetron HCl 4 mg 06/23/23 15:06 06/23/23 15:56 Ondansetron Odt 4 Mg Tab.Rapdis TRANSLINGU 06/23/23 15:07 4 mg ONCE ONE Administration Discharge Plan Discharge Clinical Impression: Nausea & vomiting, Enteritis Patient Disposition: Home, Self-Care Instructions: Acute Nausea and Vomiting (ED), Acute Abdominal Pain (ED), Enteritis (ED) Additional Instructions: Your seen in the emergency department due to nausea, vomiting, and diarrhea. Your blood work today was reassuring. We had medicated you with a medication called Zofran, and also administered fluids. Your symptoms are likely due to a virus. Please stick to a bland diet, avoid spicy or fried food. A diet consisting of bananas, rice, applesauce, toast can help with diarrhea, and vomiting. Advanced diet as tolerated. You may take prescribed Zofran as directed as needed for nausea and vomiting. Follow-up with your primary care physician regarding this visit. If any new or worsening symptoms occur including but not limited to worsening abdominal pain, nausea, vomiting, chest pain, shortness on breath, please return for re-evaluation. Prescriptions: New ondansetron 4 mg tablet,disintegrating 4 mg PO Q8H Qty: 10 0RF No Action levothyroxine 100 mcg capsule 100 mcg PO DAILY 90 Days Qty: 90 11RF metronidazole 0.75 % (37.5mg/5 gram) gel 1 appful vaginal BEDTIME 5 Days Qty: 70 0RF celebrate MVI PO DAILY multivitamin Tablet 1 tab PO DAILY
[2023-06-23 15:29] LABS: MANUAL DIFF FLAG NO
[2023-06-23 15:32] LABS: Basophils Percent Auto 0.2 % (0-2); Eosinophils Absolute Auto 0.1 X10*3/uL (0.0-0.4); Hematocrit 39.5 % (37.0-47.0); Imm Gran Abs Auto 0.03 X10*3/uL (0.00-0.03); Imm Gran Pct Auto 0.5 % (0.0-0.4); Lymphocytes Absolute Auto 0.5 X10*3/uL (1.2-4.9); Lymphocytes Percent Auto 9.2 % (20-40); Mean Corpuscular HGB Conc 32.9 g/dl (31.0-35.0); Mean Corpuscular Hemoglobin 28.1 pg (27.0-33.0); Mean Corpuscular Volume 85.5 fL (80.0-98.0); Mean Platelet Volume 11.1 fL (9.4-12.3); Monocytes Absolute Auto 0.7 X10*3/uL (0.1-1.2); Monocytes Percent Auto 11.3 % (2-11); Neutrophils Absolute Auto 4.6 x10*3/uL (2.0-8.3); Neutrophils Percent Auto 77.8 % (45-73); Platelet Count 268 X10*3/uL (160-400); Red Blood Count 4.62 X10*6/uL (4.20-5.50); Red Cell Distribution Width 12.8 % (11.0-16.0); White Blood Count 5.9 X10*3/uL (4.8-10.8)
[2023-06-23 15:48] LABS: Alanine Aminotransferase 14 U/L (0-31); Alkaline Phosphatase 68 U/L (39-117); Anion Gap 12 (12-20); Aspartate Amino Transferase 21 U/L (5-31); Bilirubin Direct 0.3 mg/dL (0.0-0.5); Bilirubin Total 0.6 mg/dL (0.0-1.0); Blood Urea Nitrogen 8 mg/dL (9-16); Carbon Dioxide 25 mmol/L (22-29); Chloride 107 mmol/L (96-108); Creatinine Clr Calc Pharmacy 105.9; Estimated Glomerular Filt Rate > 60; Glucose Random 92 mg/dL (60-115); Lipase 13 U/L (8-78); Potassium 4.2 mmol/L (3.3-5.1); Sodium 140 mmol/L (135-145); Total Protein 7.5 g/dL (6.5-8.0)
[2023-06-23] MEDS: Ondansetron ODT 4 MG TAB.RAPDIS TRANSLINGU (15:56)
[2023-06-23] MEDS: 0.9 % Sodium Chloride 1,000 ML 999 ML IV (17:36)
[2023-06-23 17:54] LABS: HCG Quantitative < 2 mIU/mL
[2023-06-23] MEDS: iohexoL 350 MG/ML 100 ML INFUS..BTL 85 ML IV (19:01)
[2023-06-23 20:10] LABS: Appearance Urine Clear; Color Urine Yellow; Glucose Urine UA Negative (Negative); Leukocyte Esterase Urine Negative (Negative); Nitrite Urine Negative (Negative); PH 5.5 (5.0-9.0); Specific Gravity - Urine >= 1.030 (1.005-1.025); UMIC TRIGGER UACC YES; Urine Blood Trace (Negative); Urine Ketones Negative (Negative); Urine Protein Negative (Neg-Trace)
[2023-06-23 20:11] LABS: UPreg QC Valid YES; Urine Pregnancy NEGATIVE (NEGATIVE)
[2023-06-23 20:13] LABS: Bacteria Urine None Seen (None Seen); Hyaline Casts Urine 0-2 /LPF (0-2); Squamous Epithelial Cell Urine 0-2 /HPF (0-2); WBC Urine 0-5 /HPF (0-5)
[2023-06-23 20:26] VITALS: BP 112/76; PULSE 80; RESP 16; TEMP 36.8; O2SAT 98
[2023-06-23 21:51] VITALS: BP 112/76; PULSE 80; RESP 18; TEMP 36.8; O2SAT 98
== END 2023-06-23 21:53 | disposition home or self-care (01) ==
PROVIDERS: Physician Assistant; Physician Assistant Medical; Emergency Provider Emergency Medicine; PCP Internal Medicine
DX: K52.9 Noninfective gastroenteritis and colitis, unspecified (principal); Z98.84 Bariatric surgery status; Z90.49 Acquired absence of other specified parts of digestive tract
CPT/HCPCS: 36415; 74177; 80048; 80076; 81001; 81025; 83690; 83735; 84702; 85025; 96360; 99283; 99284; Q9967

== ENCOUNTER 2023-09-28 11:40 | Outpatient (REF) | payer MEDICAID, SELFPAY | END 2023-09-28 11:41 | disposition home or self-care (01) | LOC: HO.LAB 11:40 | PROVIDERS: PCP Internal Medicine; Visit Provider Internal Medicine | DX: E66.9 Obesity, unspecified (principal); E89.0 Postprocedural hypothyroidism; K44.9 Diaphragmatic hernia without obstruction or gangrene | CPT/HCPCS: 36415; 84443 ==

== ENCOUNTER 2023-12-03 07:45 | Outpatient (REF) | payer MEDICAID, SELFPAY ==
[2023-12-03 09:29] LABS: Alanine Aminotransferase 11 U/L (0-31); Alkaline Phosphatase 57 U/L (39-117); Anion Gap 11 (12-20); Aspartate Amino Transferase 16 U/L (5-31); Bilirubin Total 0.8 mg/dL (0.0-1.0); Blood Urea Nitrogen 11 mg/dL (9-16); Calcium 9.4 mg/dL (8.4-10.2); Carbon Dioxide 26 mmol/L (22-29); Chloride 105 mmol/L (96-108); Estimated Glomerular Filt Rate > 60; Glucose Random 88 mg/dL (60-115); Potassium 4.4 mmol/L (3.3-5.1); Sodium 138 mmol/L (135-145); Total Protein 6.9 g/dL (6.5-8.0)
[2023-12-03 09:50] LABS: Thyroid Stimulating Hormone 0.57 uIU/mL (0.32-4.0)
== END 2023-12-03 07:46 | disposition home or self-care (01) ==
LOC: HO.LAB 07:45
PROVIDERS: PCP Internal Medicine; Visit Provider Internal Medicine
DX: E66.9 Obesity, unspecified (principal); E89.0 Postprocedural hypothyroidism; Z68.36 Body mass index [BMI] 36.0-36.9, adult; Z98.84 Bariatric surgery status
CPT/HCPCS: 36415; 80053; 84443

== ENCOUNTER 2024-02-09 10:32 | Outpatient (REF) | payer MEDICAID, SELFPAY ==
[2024-02-10 06:05] LABS: CT PCR NOT DETECTED (Not Detect.); NG PCR NOT DETECTED (Not Detect.)
[2024-02-10 10:56] LABS: Bacterial Vaginosis PCR NEGATIVE (Negative); Candida Group PCR NOT DETECTED (Not Detect); Candida glab krusei PCR NOT DETECTED (Not Detect); Trichomonas vaginalis PCR NOT DETECTED (Not Detect)
== END 2024-02-09 10:33 | disposition home or self-care (01) ==
LOC: HO.LAB 10:32
PROVIDERS: PCP Internal Medicine; Visit Provider Advanced Practice Midwife
DX: N89.8 Other specified noninflammatory disorders of vagina (principal); Z01.419 Encounter for gynecological examination (general) (routine) without abnormal findings; N92.0 Excessive and frequent menstruation with regular cycle; Z11.3 Encounter for screening for infections with a predominantly sexual mode of transmission
CPT/HCPCS: 0352U; 87491; 87591; 99396

== ENCOUNTER 2024-02-09 10:32 | Outpatient (AMB) | payer MEDICAID, SELFPAY ==
--- NOTE | 2024-02-09 10:53 | A.OFFVIS_ITS ---
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 While every effort has been made to ensure accuracy, station jailer errors may have been included. 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 She is not having any data processing systems project planner concerns she knows this is the year she starts mammograms she has been noticing her breasts tender sometimes but she has not been paying attention as to when in her cycle that they get tender though they are tender now in its the week before her. She is expecting her menses on Thursday she also says her periods are getting heavier with more clots . She would like to get checked for different infections including Chlamydia, though she did not express any special concerns. She says she often has BV she does not have any odor at the moment though. 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 She has a 3-year-old son with her. Be is autistic and does not speak but he does sign language she very well with early intervention and he is in school . She goes to the gym every day when he is in school, for 2 hours. -------- PFSH Medical History Liver fibrosis Steatosis, liver GERD (gastroesophageal reflux disease) Knee pain Back pain Morbid obesity Elevated prolactin level Obesity Vitamin D deficiency History of Graves' disease Postablative hypothyroidism Hypothyroidism Surgical History Status post sleeve gastrectomy Hx of section Hx of cholecystectomy Family History Father Hypertension Mother Thyroid disease Maternal Grandmother Family history of diabetes mellitus (DM) Hypertension Thyroid disease Paternal Grandmother Hypertension Paternal Grandfather No problems noted. Social History Household Members: Spouse Both parents involved: Yes Housing: Apartment Are you a primary long term care phlebotomist to a significant other at home: No Do you presently have visiting nurse or other home services: No Alcohol intake: never Patient Tobacco Use Status: Never used Tobacco service: No Current occupational status: employed Sexual orientation: Lesbian/Briones/Homosexual Female Reproductive History Menstrual Age of Menarche: 10 Duration of menses: 3-5 days Date of last menstrual period: 01/16/24 control method: none Total pregnancies: 1 Full term: 1 Date of last pap smear: 11/28/20 (negative) Physical Exam Vital Signs: Last Vital Signs BP 122/70 02/09/24 10:57 BMI result Body Mass Index 32.9 Const General: healthy appearing, comfortable, no acute distress, well developed and alert Nutritional Appearance: average body habitus Orientation/consciousness: patient oriented x3 Limitations: no limitations HEENT Head: Yes normocephalic Neck Neck: Yes normal visual inspection Chest Other: No masses palpable no discrete areas of tenderness. Chest palpation & inspection: normal inspection of the chest Breast/axilla inspection: normal inspection of the breasts and normal inspection of the axillae Breast/axilla palpation: normal palpation of the breasts and normal palpation of the axillae Resp Effort & Inspection: normal respiratory effort GI Inspection: Yes normal to inspection, No Abdominal wall edema and No distended Palpation (GI): Soft to palpation and nontender Other: External exam within normal limits vagina is moist with clear white scant discharge cervix nulliparous healthy-appearing no abnormal discharge whatsoever. Uterus is small midposition mobile nontender adnexa nontender good tone Kegel. General: Yes bladder normal to palpation External Female Exam: normal external appearance and normal appearance of the urethra Speculum Exam - Vagina: normal appearance of the vagina, normal palpation and normal vaginal discharge Speculum Exam - Cervix: normal appearance of the cervix, normal palpation and nontender Bimanual exam- vagina & uterus: normal bimanual exam, normal palpation, uterine size normal, bladder normal to palpation, consistency normal, normal palpation, uterine mobility normal, uterine shape normal, No Cervical tenderness present, non-tender and no cervical motion tenderness Bimanual Exam- Adnexa, other: normal adnexae, no masses, normal and No adnexal tenderness Neuro General: patient oriented x3 Results Reviewed Results Reviewed: Name: Do Ashley Age/Sex: 34/F Attending: Radha Espinoza CNM : 1985 Submitted by: Radha Espinoza CNM Copies to: MR #: [id number] Status: DEP REF Collected: 11/28/20 Location: .LAB Received: 11/29/20 Interpretation Satisfactory for evaluation. Hyperkeratosis noted. Negative for intraepithelial lesion or malignancy. HPV mRNA E6/E7: NOT DETECTED This assay detects E6/E7 viral messenger RNA (mRNA) from 14 high-risk HPV types (16, 18, 31, 33, 35, 39, 45, 51, 52, 56, 58, 59, 66, 68) HPV testing performed by [facility], [place], [place]. See reference laboratory portion of the EMR for entire report. Clinical Information LMP: N/A Previous PAP test:Unknown date/findings Material Received ThinPrep- Cervical Electronically Signed By: Belen Hanna MD 12/04/20 2154 The Pap Test is a screening procedure with the inherent possibility of both false negative and false positive results. Results should be interpreted in the context of historic and current clinical findings. Reliability of the Pap Test is enhanced by performing the test on a regular repetitive basis. Patient: Justin Page 1 of 1 Assessment & Plan Assessment & Plan (1) Screen for sexually transmitted diseases: Code(s): Z11.3 - Encounter for screening for infections with a predominantly sexual mode of transmission Category: Medical (2) Status post sleeve gastrectomy: Comment: 08/29/21. 01/31/22- has lost 85 lbs. Walks 1' q day; 02/09/24-is losing weight again after having gained some, works out in the gym 2 hours every day. Code(s): Z90.3 - Acquired absence of stomach [part of] Category: Surgical (3) Well woman exam with routine gynecological exam: Code(s): Z01.419 - Encounter for gynecological examination (general) (routine) without abnormal findings Category: Medical (4) Cervical cancer screening: Comment: pap done 11/28/20= neg w neg hpv Code(s): Z12.4 - Encounter for screening for malignant neoplasm of cervix Category: Medical (5) Breast cancer screening: Code(s): Z12.39 - Encounter for other screening for malignant neoplasm of breast Category: Medical (6) Menorrhagia: Comment: Her periods are gradually getting heavier and crampier since the of her child 3 years ago. Code(s): N92.0 - Excessive and frequent menstruation with regular cycle Category: Medical Plan -----Discussed in this visit the following: healthy balanced diet, regular and consistent exercise, getting recommended health screens, doing the best she can for her particular health concerns, kegel exercises, pap smear screening and followup recommendations, mammography screening and SBE, normal changes in cycles in her life stage--- . 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 We will order ultrasounds to see if this any pathology also discussed various methods that are sometimes used to periods less heavy crampy Mirena IU S devices. She does not not like taking pills her medication or control method especially as she does not it in life for control. Discussed vagina vagina appears very healthy at this time bacterial vaginosis shows up as it does for women she may elect to have treatment or to have it hand for future reference but she does not have to treat it. We will have a visit after the ultrasound to review any findings. I am ordering a breast mammogram to be done for as well. Orders: Orders US pelvic and transvaginal Today N92.0 - Excessive and frequent menstruation with regular cycle MM tomosynthesis screening BI Today Z12.31 - Encounter for screening mammogram for malignant neoplasm of breast, Z12.39 - Encounter for other screening for ma lignant neoplasm of breast Coding Level of Care Code Est Pt Prev Care 40-64y(77252) Diagnoses Screen for sexually transmitted diseases Z11.3 Status post sleeve gastrectomy Z90.3 Well woman exam with routine gynecological exam Z01.419 Cervical cancer screening Z12.4 Breast cancer screening Z12.39 Menorrhagia N92.0
[2024-02-09 10:57] VITALS: BP 122/70; BMI 32.9
== END 2024-02-09 11:54 | disposition home or self-care (01) ==
PROVIDERS: PCP Internal Medicine; Visit Provider Advanced Practice Midwife
DX: Z11.3 Encounter for screening for infections with a predominantly sexual mode of transmission (principal); Z90.3 Acquired absence of stomach [part of]; Z01.419 Encounter for gynecological examination (general) (routine) without abnormal findings; Z12.4 Encounter for screening for malignant neoplasm of cervix; Z12.39 Encounter for other screening for malignant neoplasm of breast; N92.0 Excessive and frequent menstruation with regular cycle
CPT/HCPCS: 99396

== ENCOUNTER 2024-02-11 13:25 | Outpatient (REF) | payer MEDICAID, SELFPAY | END 2024-02-11 13:26 | disposition home or self-care (01) | LOC: HO.US 13:25 | PROVIDERS: PCP Internal Medicine; Visit Provider Advanced Practice Midwife | DX: N92.0 Excessive and frequent menstruation with regular cycle (principal) | CPT/HCPCS: 76830; 76856 ==

== ENCOUNTER 2024-03-01 07:44 | Outpatient (REF) | payer MEDICAID, SELFPAY ==
[2024-03-01 08:16] LABS: MANUAL DIFF FLAG NO
[2024-03-01 08:24] LABS: Basophils Absolute Auto 0.1 X10*3/uL (0.0-0.2); Basophils Percent Auto 0.8 % (0-2); Eosinophils Absolute Auto 0.1 X10*3/uL (0.0-0.4); Eosinophils Percent Auto 2.1 % (0-4); Hematocrit 37.5 % (37.0-47.0); Imm Gran Abs Auto 0.02 X10*3/uL (0.00-0.03); Imm Gran Pct Auto 0.3 % (0.0-0.4); Lymphocytes Absolute Auto 1.9 X10*3/uL (1.2-4.9); Lymphocytes Percent Auto 29.4 % (20-40); Mean Corpuscular Hemoglobin 25.9 pg (27.0-33.0); Mean Platelet Volume 10.8 fL (9.4-12.3); Monocytes Absolute Auto 0.6 X10*3/uL (0.1-1.2); Neutrophils Absolute Auto 3.8 x10*3/uL (2.0-8.3); Neutrophils Percent Auto 58.4 % (45-73); Platelet Count 332 X10*3/uL (160-400); Red Blood Count 4.63 X10*6/uL (4.20-5.50); White Blood Count 6.5 X10*3/uL (4.8-10.8)
[2024-03-01 09:02] LABS: Thyroid Stimulating Hormone 2.65 uIU/mL (0.32-4.0)
[2024-03-01 09:06] LABS: Erythrocyte Sedimentation Rate 11 MM/HR (0-20)
[2024-03-01 09:14] LABS: Vitamin B12 384 pg/mL (200-900)
[2024-03-03 15:22] LABS: Anti Nuclear Antibody Screen NEGATIVE (NEGATIVE)
== END 2024-03-01 07:45 | disposition home or self-care (01) ==
LOC: HO.LAB 07:44
PROVIDERS: PCP Internal Medicine; Visit Provider Internal Medicine
DX: Z00.00 Encounter for general adult medical examination without abnormal findings (principal); K12.0 Recurrent oral aphthae; I73.00 Raynaud's syndrome without gangrene; E89.0 Postprocedural hypothyroidism; E66.9 Obesity, unspecified
CPT/HCPCS: 36415; 82607; 82746; 84443; 85025; 85652; 86038

== ENCOUNTER 2024-03-29 10:43 | Outpatient (AMB) | payer MEDICAID, SELFPAY ==
[2024-03-29 11:02] VITALS: BP 122/78; BMI 34.4
--- NOTE | 2024-03-29 11:02 | A.OFFVIS_ITS ---
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 She says there pretty crampy and heavy the 1st day but by day 2 they are not so bad she thinks that is normal . She is here with her 3-year-old son who was born by with reproductive assistance as she is to her . [facility] Medical History Liver fibrosis Steatosis, liver GERD (gastroesophageal reflux disease) Knee pain Back pain Morbid obesity Elevated prolactin level Obesity Vitamin D deficiency History of Graves' disease Postablative hypothyroidism Hypothyroidism Surgical History Status post sleeve gastrectomy Hx of section Hx of cholecystectomy Family History Father Hypertension Mother Thyroid disease Maternal Grandmother Family history of diabetes mellitus (DM) Hypertension Thyroid disease Paternal Grandmother Hypertension Paternal Grandfather No problems noted. Social History Household Members: Spouse Both parents involved: Yes Housing: Apartment Are you a primary physician primary care sports medicine to a significant other at home: No Do you presently have visiting nurse or other home services: No Alcohol intake: never Patient Tobacco Use Status: Never used Tobacco service: No Current occupational status: employed Sexual orientation: Lesbian/Briones/Homosexual Female Reproductive History Menstrual Age of Menarche: 10 Duration of menses: 3-5 days Date of last menstrual period: 03/04/24 Date of last pap smear: 11/28/20 (negative) Results Reviewed Results Reviewed: The pelvic ultrasound done February 10, has not yet been officially read by Radiology. Conversation took place between myself and fish technologist who showed me the work she and confirmed that there was 1 2.7 cm in its widest dimensions intramural fibroid seen as well as a dominant follicle and nabothian cysts. Assessment & Plan Assessment & Plan (1) Fibroids: Comment: One 2.7 cm intramural fibroid seen on ultrasound 02/11/2024. Code(s): D21.9 - Benign neoplasm of connective and other soft tissue, unspecified Category: Medical Plan I reviewed the ultrasound findings even though they have not been read by radiologist as the patient had scheduled this visit today it did not want to reschedule this. Reviewed that fibroids can grow that they are noncancerous that they can cause periods to be heavier and cramp ear they may really rise to a level of concern if they become bigger or are multiple and cause her more difficulty. This point she feels that her periods are kind of manageable end within the normal range to be expected and she gets them every 28 days and has always done so. Discussed that sometimes an IUD with progestin can be helpful to help minimize menses and the cramping that goes with them. She does not feel that she wants to consider that at this time I helped her [employer] fibroid so that she can read more information about them discussed that if her periods became longer heavier cramp ear and she was losing more blood and became anemic that that would be something to investigate further other than that we will see her for annual exams. Coding Level of Care Code Est Pt Level 3 (97792) Diagnoses Fibroids D21.9
== END 2024-03-29 11:33 | disposition home or self-care (01) ==
LOC: HO.HWSM 10:43
PROVIDERS: PCP Internal Medicine; Visit Provider Advanced Practice Midwife
DX: D21.9 Benign neoplasm of connective and other soft tissue, unspecified (principal)
CPT/HCPCS: 99213

== ENCOUNTER → 2024-03-29 10:43 | Outpatient (BNVA) | payer MEDICAID, SELFPAY | PROVIDERS: PCP Internal Medicine; Visit Provider Advanced Practice Midwife | DX: D21.9 Benign neoplasm of connective and other soft tissue, unspecified (principal) | CPT/HCPCS: 99212 ==

== ENCOUNTER 2024-03-31 10:55 | Outpatient (REF) | payer MEDICAID, SELFPAY ==
--- NOTE | ~2024-03-31 | MM_ITS ---
EXAMINATION: MM SCREENING DIGITAL BREAST TOMOSYNTHESIS, BILATERAL CLINICAL INFORMATION: Screening. Asymptomatic. COMPARISON: Mammography: Comparison is made with available priors TECHNIQUE: Digital breast mammography with tomosynthesis is performed in both the craniocaudal and mediolateral oblique views along with computer-aided detection (CAD). FINDINGS: There are scattered areas of fibroglandular density (ACR BI-RADS breast composition Category b). There are no significant masses, abnormal calcifications, or other abnormalities. MM/MM tomosynthesis screening BI IMPRESSION: No mammographic evidence of malignancy. ASSESSMENT: BI-RADS BI-RADS 1 - Negative RECOMMENDATION: Routine annual mammography screening. 1 year F/U This examination should not preclude the clinical evaluation of a suspicious palpable abnormality. This patient's information was entered into a reminder system with a target due date for their next mammogram. Electronically signed by: Zuleika Dillon DO 04/07/2024 12:35 PM JAYLIN
== END 2024-03-31 10:56 | disposition home or self-care (01) ==
LOC: HO.MAMMO 10:55
PROVIDERS: PCP Internal Medicine; Visit Provider Advanced Practice Midwife
DX: Z12.31 Encounter for screening mammogram for malignant neoplasm of breast (principal)
CPT/HCPCS: 77063; 77067

== ENCOUNTER → 2024-03-31 11:00 | Outpatient (BNV) | payer MEDICAID, SELFPAY | PROVIDERS: PCP Internal Medicine; Visit Provider Internal Medicine | DX: Z12.31 Encounter for screening mammogram for malignant neoplasm of breast (principal) | CPT/HCPCS: 77063; 77067 ==

== ENCOUNTER 2024-06-13 11:30 | Outpatient (AMB) | payer MEDICAID, SELFPAY ==
--- NOTE | 2024-06-13 11:32 | A.OFFVIS_ITS ---
VS Expanded 06/13/24 11:42 BP 117/56 L Blood Pressure Location Rt brachial Blood Pressure Position Sitting Pulse 57 Pulse Source Pulse Oximeter Temp 97.5 F Temperature Source Temporal Artery Scan Pulse Oximetry 98 Oxygen Delivery Method Room Air Height 5 ft 3 in Weight 199 lb 2 oz BMI 35.3 Body Fat % 40.3 Body Fat Mass 80.2 Fat Free Mass 118.8 Visceral Fat Rating 9.0 Body Water % 42.7 Body Water Mass 85.0 Muscle Mass/Score 112.8 Basal Metabolic Rate/Score 1,650 Intake Visit Reasons: (OV) PO LSG 08/29/21 Pc Maintenance Technician Required: No Allergies No Known Allergies [No Known Allergies*] Allergy (Verified 06/13/24 11:44) Medication List - Last Reconciled 06/13/24 by JUSTICE Triplett [celebrate MVI PO DAILY] levothyroxine 100 mcg PO DAILY 90 days tirzepatide (weight loss) (Zepbound) 2.5 mg (0.5 mL) subcut QWEEK HPI Comments Details: This?a?38?yo female who is s/p LSG without hiatal hernia repair on?08/29/[address] Hernandez. Presents for 2 year 9 month post op visit. She was last seen in the office in 09/09/2022, at that time her weight was 173.6 pounds, with a BMI of 30.8.? Weight today is 199.2 lb with a BMI of 35.3. There has been a 47.8 pound weight loss,(initial weight 247 pounds) since starting the program on 05/27/21 reflecting a 19.3% total body weight loss and a weight loss of 18.3 pounds since surgery (operative weight 217.5 pounds) reflecting a 8.4% TBWL since surgery.? No complaints of nausea, emesis, abdominal pain or reflux. Reports infrequent but normal bowel movements every 2-3 days.? Still taking mvi and mathew+D. She states she has not followed up in the office in several years. She had ups and Downs. She states that her lowest weight was 165 lb and she was happy at that weight. Since then, she has not followed any significant consistent meal plan. She does wish to return to a structured meal plan and exercise plan. Present meal plan includes: premier protein rtd 30 gm protein 1 daily split in half, expanded with 4-5 oz almond milk meal 6 forks protein/6 forks veg. togolese yogurt daily Drinking 64 oz water ? Exercise routine includes: started 2 weeks ago 3 days per week, treadmill 45 min, 250-300 calories Any post op complications: rectus sheath hematoma MARY: never DM: never HTN: never Hyperlipidemia: never GERD:?0-5 scale ??0 = no symptoms ??1 = symptoms noticeable but not bothersome 2 =symptoms bothersome but not daily ? 3 = symptoms bothersome and daily 4 = symptoms affect daily activities 5 = symptoms are incapacitating, unable to do daily activities ? How bad is the heartburn: 0 ? Heartburn while lying down: 0 ? Heartburn when standing up: 0 ? Heartburn after meals: 0 ? Does heartburn change your diet: 0 ? Does heartburn wake you up from sleep: 0 ? Do you have difficulty swallowin ? Do you have pain with swallowin ? If you take medicine for your reflux, does this affect your daily life: 0 Satisfaction with present condition - satisfied or not satisfied: satisfied [facility] Medical History Liver fibrosis Steatosis, liver GERD (gastroesophageal reflux disease) Knee pain Back pain Morbid obesity Elevated prolactin level Obesity Vitamin D deficiency History of Graves' disease Postablative hypothyroidism Hypothyroidism Surgical History Status post sleeve gastrectomy Hx of section Hx of cholecystectomy Family History Father Hypertension Mother Thyroid disease Maternal Grandmother Family history of diabetes mellitus (DM) Hypertension Thyroid disease Paternal Grandmother Hypertension Paternal Grandfather No problems noted. Social History Household Members: Spouse Both parents involved: Yes Housing: Apartment Are you a primary body care manager to a significant other at home: No Do you presently have visiting nurse or other home services: No Alcohol intake: never Patient Tobacco Use Status: Never used Tobacco service: No Current occupational status: employed Sexual orientation: Lesbian/Briones/Homosexual Female Reproductive History Menstrual Age of Menarche: 10 Physical Exam Vital Signs: Last Vital Signs Temp 97.5 F 06/13/24 11:42 Pulse 57 06/13/24 11:42 BP 117/56 L 06/13/24 11:42 Pulse Ox 98 06/13/24 11:42 Oxygen Delivery Method Room Air 06/13/24 11:42 BMI result Body Mass Index 35.3 Const General: cooperative and no acute distress Orientation/consciousness: patient oriented x3 Resp Effort & Inspection: normal respiratory effort Auscultation: clear to auscultation bilaterally Cardio Rate: regular rate Rhythm: regular rhythm GI Inspection: Yes normal to inspection and Yes incision (well healed) Palpation (GI): Soft to palpation and no masses Neuro General: patient oriented x3 Assessment & Plan Assessment & Plan (1) Status post sleeve gastrectomy: Comment: 08/29/21. 01/31/22- has lost 85 lbs. Walks 1' q day; 02/09/24-is losing weight again after having gained some, works out in the gym 2 hours every day. Code(s): Z90.3 - Acquired absence of stomach [part of] Category: Surgical Plan: Check postop labs. Patient given information regarding right BMI. We will initiate setback 2.5 mg weekly. Encouraged to text weights weekly and with any questions or concerns. Return to clinic 1 month. Orders: Orders Insulin Today D64.9 - Anemia, unspecified, E51.9 - Thiamine deficiency, unspecified, E53.8 - Deficiency of other specified B group vitamins, E60 - Dietary zinc deficiency, K76.0 - Fatty (change of) liver, not elsewhere classified, Z90.3 - Acquired absence of stomach [part of] Hemoglobin A1c Today D64.9 - Anemia, unspecified, E51.9 - Thiamine deficiency, unspecified, E53.8 - Deficiency of other specified B group vitamins, E60 - Dietary zinc deficiency, K76.0 - Fatty (change of) liver, not elsewhere classified, Z90.3 - Acquired absence of stomach [part of] IRON PROFILE Today D64.9 - Anemia, unspecified, E51.9 - Thiamine deficiency, unspecified, E53.8 - Deficiency of other specified B group vitamins, E60 - Dietary zinc deficiency, K76.0 - Fatty (change of) liver, not elsewhere classified, Z90.3 - Acquired absence of stomach [part of] Comprehensive Met. Panel Today D64.9 - Anemia, unspecified, E51.9 - Thiamine deficiency, unspecified, E53.8 - Deficiency of other specified B group vitamins, E60 - Dietary zinc deficiency, K76.0 - Fatty (change of) liver, not elsewhere classified, Z90.3 - Acquired absence of stomach [part of] Vitamin B12 and Folate Today D64.9 - Anemia, unspecified, E51.9 - Thiamine deficiency, unspecified, E53.8 - Deficiency of other specified B group vitamins, E60 - Dietary zinc deficiency, K76.0 - Fatty (change of) liver, not elsewhere classified, Z90.3 - Acquired absence of stomach [part of] Zinc Today D64.9 - Anemia, unspecified, E51.9 - Thiamine deficiency, unspecified, E53.8 - Deficiency of other specified B group vitamins, E60 - Dietary zinc deficiency, K76.0 - Fatty (change of) liver, not elsewhere classified, Z90.3 - Acquired absence of stomach [part of] C Reactive Protein Today D64.9 - Anemia, unspecified, E51.9 - Thiamine deficiency, unspecified, E53.8 - Deficiency of other specified B group vitamins, E60 - Dietary zinc deficiency, K76.0 - Fatty (change of) liver, not elsewhere classified, Z90.3 - Acquired absence of stomach [part of] Vitamin B1 Today D64.9 - Anemia, unspecified, E51.9 - Thiamine deficiency, unspecified, E53.8 - Deficiency of other specified B group vitamins, E60 - Dietary zinc deficiency, K76.0 - Fatty (change of) liver, not elsewhere classified, Z90.3 - Acquired absence of stomach [part of] Vitamin A Today D64.9 - Anemia, unspecified, E51.9 - Thiamine deficiency, unspecified, E53.8 - Deficiency of other specified B group vitamins, E60 - Dietary zinc deficiency, K76.0 - Fatty (change of) liver, not elsewhere classified, Z90.3 - Acquired absence of stomach [part of] TSH reflex Free T4 Today D64.9 - Anemia, unspecified, E51.9 - Thiamine deficiency, unspecified, E53.8 - Deficiency of other specified B group vitamins, E60 - Dietary zinc deficiency, K76.0 - Fatty (change of) liver, not elsewhere classified, Z90.3 - Acquired absence of stomach [part of] Ferritin Today D64.9 - Anemia, unspecified, E51.9 - Thiamine deficiency, unspecified, E53.8 - Deficiency of other specified B group vitamins, E60 - Dietary zinc deficiency, K76.0 - Fatty (change of) liver, not elsewhere classified, Z90.3 - Acquired absence of stomach [part of] Complete Blood Count Auto Diff Today D64.9 - Anemia, unspecified, E51.9 - Thiamine deficiency, unspecified, E53.8 - Deficiency of other specified B group vitamins, E60 - Dietary zinc deficiency, K76.0 - Fatty (change of) liver, not elsewhere classified, Z90.3 - Acquired absence of stomach [part of] Lipid Panel Today D64.9 - Anemia, unspecified, E51.9 - Thiamine deficiency, unspecified, E53.8 - Deficiency of other specified B group vitamins, E60 - Dietary zinc deficiency, K76.0 - Fatty (change of) liver, not elsewhere classified, Z90.3 - Acquired absence of stomach [part of] Vitamin D 25-OH Total Today D64.9 - Anemia, unspecified, E51.9 - Thiamine deficiency, unspecified, E53.8 - Deficiency of other specified B group vitamins, E60 - Dietary zinc deficiency, K76.0 - Fatty (change of) liver, not elsewhere classified, Z90.3 - Acquired absence of stomach [part of] Medications: New tirzepatide (weight loss) (Zepbound) for 4 weeks 2.5 mg (0.5 mL) subcut QWEEK 2 mL 0RF
[2024-06-13 11:42] VITALS: BP 117/56; PULSE 57; TEMP 36.4; O2SAT 98; BMI 35.3
== END 2024-06-13 11:57 | disposition home or self-care (01) ==
PROVIDERS: PCP Internal Medicine; Visit Provider Physician Assistant Surgical
DX: E66.812 Obesity, class 2 (principal); Z68.35 Body mass index [BMI] 35.0-35.9, adult; Z90.3 Acquired absence of stomach [part of]; Z98.84 Bariatric surgery status
CPT/HCPCS: 99214

== ENCOUNTER → 2024-06-13 11:30 | Outpatient (BNVA) | payer MEDICAID, SELFPAY | PROVIDERS: PCP Internal Medicine; Visit Provider Physician Assistant Surgical | DX: D64.9 Anemia, unspecified (principal); E51.9 Thiamine deficiency, unspecified; E53.8 Deficiency of other specified B group vitamins; E60 Dietary zinc deficiency; K76.0 Fatty (change of) liver, not elsewhere classified; E66.9 Obesity, unspecified; Z68.35 Body mass index [BMI] 35.0-35.9, adult; Z98.84 Bariatric surgery status | CPT/HCPCS: 99212 ==

== ENCOUNTER 2024-06-15 07:52 | Outpatient (REF) | payer MEDICAID, SELFPAY ==
[2024-06-15 08:13] LABS: MANUAL DIFF FLAG NO
[2024-06-15 08:43] LABS: Basophils Percent Auto 0.6 % (0-2); Eosinophils Absolute Auto 0.2 X10*3/uL (0.0-0.4); Eosinophils Percent Auto 2.6 % (0-4); Hematocrit 33.8 % (37.0-47.0); Hemoglobin 10.7 g/dl (12.0-16.0); Imm Gran Abs Auto 0.03 X10*3/uL (0.00-0.03); Imm Gran Pct Auto 0.4 % (0.0-0.4); Lymphocytes Absolute Auto 1.7 X10*3/uL (1.2-4.9); Lymphocytes Percent Auto 24.7 % (20-40); Mean Corpuscular HGB Conc 31.7 g/dl (31.0-35.0); Mean Corpuscular Hemoglobin 24.7 pg (27.0-33.0); Mean Corpuscular Volume 78.1 fL (80.0-98.0); Mean Platelet Volume 10.9 fL (9.4-12.3); Monocytes Absolute Auto 0.7 X10*3/uL (0.1-1.2); Monocytes Percent Auto 10.1 % (2-11); Neutrophils Absolute Auto 4.2 x10*3/uL (2.0-8.3); Neutrophils Percent Auto 61.6 % (45-73); Platelet Count 308 X10*3/uL (160-400); Red Blood Count 4.33 X10*6/uL (4.20-5.50); Red Cell Distribution Width 15.2 % (11.0-16.0); White Blood Count 6.8 X10*3/uL (4.8-10.8)
[2024-06-15 08:52] LABS: Estimated Average Glucose 103 mg/dL; Hemoglobin A1c % 5.2 % (<6.0)
[2024-06-15 09:11] LABS: Alanine Aminotransferase 15 U/L (0-31); Albumin Level 4.2 g/dL (3.5-5.0); Alkaline Phosphatase 56 U/L (39-117); Anion Gap 10 (12-20); Aspartate Amino Transferase 21 U/L (5-31); Bilirubin Total 0.7 mg/dL (0.0-1.0); Blood Urea Nitrogen 11 mg/dL (9-16); C Reactive Protein 0.19 mg/dL (< or = 0.50); Calcium 8.9 mg/dL (8.4-10.2); Carbon Dioxide 26 mmol/L (22-29); Chloride 107 mmol/L (96-108); Cholesterol 153 mg/dL (<200); Estimated Glomerular Filt Rate > 60; Glucose Random 82 mg/dL (60-115); HDL Cholesterol 56 mg/dL (>40); Iron 25 mcg/dL (30-160); LDL Cholesterol Calculated 86 mg/dL (<100); Percent Iron Saturation 6 % (15-50); Potassium 3.8 mmol/L (3.3-5.1); Sodium 139 mmol/L (135-145); Total Iron Binding Capacity 388 mcg/dL (228-428); Total Protein 7.1 g/dL (6.5-8.0); Triglycerides 56 mg/dL (<150); Unsaturated Iron Binding 363 ug/dL
[2024-06-15 09:33] LABS: Ferritin 4 ng/mL (10-250); TSH reflex Free T4 4.57 uIU/mL (0.32-4.0)
[2024-06-15 09:44] LABS: Folate 15.6 ng/mL (> or = 4.0); Vitamin B12 437 pg/mL (200-900)
[2024-06-15 09:46] LABS: Insulin 4 uU/mL (2-29)
[2024-06-15 11:15] LABS: Free T4 (Free Thyroxine) 0.99 ng/dL (0.71-1.85)
[2024-06-18 21:19] LABS: Zinc 72 mcg/dL (60-130)
== END 2024-06-15 07:53 | disposition home or self-care (01) ==
LOC: HO.LAB 07:52
PROVIDERS: PCP Internal Medicine; Visit Provider Physician Assistant Surgical
DX: Z90.3 Acquired absence of stomach [part of] (principal); D64.9 Anemia, unspecified; K76.0 Fatty (change of) liver, not elsewhere classified; E53.8 Deficiency of other specified B group vitamins; E51.9 Thiamine deficiency, unspecified; E60 Dietary zinc deficiency
CPT/HCPCS: 36415; 80053; 80061; 82306; 82607; 82728; 82746; 83036; 83525; 83540; 84425; 84439; 84443; 84590; 84630; 85025; 86140

== ENCOUNTER 2024-06-20 07:50 | Outpatient (REF) | payer MEDICAID, SELFPAY ==
[2024-06-23 20:39] LABS: Vitamin A 40 mcg/dL (38-98)
[2024-06-29 15:43] LABS: Vitamin B1 8 nmol/L (8-30)
== END 2024-06-20 07:51 | disposition home or self-care (01) ==
LOC: HO.LAB 07:50
PROVIDERS: PCP Internal Medicine; Visit Provider Physician Assistant Surgical
DX: K76.0 Fatty (change of) liver, not elsewhere classified (principal); D64.9 Anemia, unspecified; E53.8 Deficiency of other specified B group vitamins; E51.9 Thiamine deficiency, unspecified; E60 Dietary zinc deficiency; Z90.3 Acquired absence of stomach [part of]
CPT/HCPCS: 36415; 84425; 84590

== ENCOUNTER 2024-07-05 07:54 | Outpatient (REF) | payer MEDICAID, SELFPAY ==
--- OUTSIDE RECORDS SUMMARY | 2024-07-05 07:59 | XMS_ITS | Clinical Summary ---
[facility] Organization [facility] Address [address] [place] [address] Care Team Providers Care Paper Counter Name Role Phone Unavailable Primary Care Provider Unavailabl e Encounters Date Type Department Care Team Description 05/23/2024 Telephone Obstetrics & Gynecology - [address] [id number] Ally Fernandez CNM medical rcords (3 received via fax [facility] from Last 3 Months Surgical History Surgery Date Site/Laterality Comments OTHER SURGICAL HISTORY PROCEDURE: DENIES PREVIOUS SURGERY Medical History Medical History Date Comments Graves disease DX:Graves diseas e Obesity DX:Obesity Social History Tobacco Use Types Packs/Day Years Used Date Smoking Tobacco: Never Assessed Comments Unknown Sex and Gender Information Value Date Recorded Sex Assigned at Not on file Legal Sex Female 4:31 AM EST Gender Identity Not on file Sexual Orientation Not on file Obstetrics History Plan of Treatment Health Maintenance Due Date Last Done Comments Breast Cancer Screening 1983 DTaP,Tdap,and Td Vaccines (1 - Tdap) 11/30/2002 Hepatitis B Vaccines (1 of 3 - 19+ 3-dose series) 11/30/2002 Cervical Cancer Screening: P ap Smear 11/30/2004 Depression Screening 02/23/2022 HIV Screening 02/23/2022 Hepatitis C Screening 02/23/2022 Social Influencers of Health Screening 02/23/2022 COVID-19 Vaccine ( - 2023-2 5 season) 2023 Influenza Vaccine (Season Ended) 2024 HIB Vaccines Aged Out No longer eligi ble based on patient's age to complete this topic HPV Vaccines Aged Out No longer eligi ble based on patient's age to complete this topic Hepatitis A Vaccines Aged Out No long er eligible based on patient's age to complete this topic IPV Vaccines Aged Out No longer eligi ble based on patient's age to complete this topic MMR Vaccines Aged Out No longer eligi ble based on patient's age to complete this topic Meningococcal ACWY Vaccine Aged Out N o longer eligible based on patient's age to complete this topic Meningococcal B Vaccine Aged Out No l onger eligible based on patient's age to complete this topic Pneumococcal Vaccine: Pediat rics (0 to 5 Years) and At-Risk Patients (6 to 64 Years) Aged Out No longer eligible b ased on patient's age to complete this topic RSV Immunization Patients Un manuelito 20 months Aged Out No longer eligible b ased on patient's age to complete this topic Varicella Vaccines Aged Out No longer eligible based on patient's age to complete this topic
[2024-07-05 09:04] LABS: Thyroid Stimulating Hormone 3.11 uIU/mL (0.32-4.0)
== END 2024-07-05 07:55 | disposition home or self-care (01) ==
LOC: HO.LAB 07:54
PROVIDERS: PCP Internal Medicine; Visit Provider Internal Medicine
DX: E89.0 Postprocedural hypothyroidism (principal); L50.8 Other urticaria
CPT/HCPCS: 36415; 84443

== ENCOUNTER 2024-08-10 10:54 | Outpatient (AMB) | payer MEDICAID, SELFPAY ==
--- NOTE | 2024-08-10 11:00 | A.OFFVIS_ITS ---
VS Expanded 08/10/24 11:08 BP 103/61 Blood Pressure Location Rt brachial Blood Pressure Position Sitting Pulse 70 Pulse Source Pulse Oximeter Temp 97.4 F Temperature Source Temporal Artery Scan Pulse Oximetry 98 Oxygen Delivery Method Room Air Height 5 ft 3 in Weight 207 lb 6.4 oz BMI 36.7 Body Fat % 41.8 Body Fat Mass 86.6 Fat Free Mass 120.6 Visceral Fat Rating 10.0 Body Water % 41.6 Body Water Mass 86.2 Muscle Mass/Score 114.4 Basal Metabolic Rate/Score 1,683 Intake Visit Reasons: (OV) PO LSG 08/29/21 Rounding Machine Operator Required: No Allergies No Known Allergies [No Known Allergies*] Allergy (Verified 08/10/24 11:06) Medication List - Last Reconciled 08/10/24 by JUSTICE Triplett [celebrate MVI PO DAILY] iron,carbonyl-vitamin C 65 mg iron- 125 mg (Vitron-C) 1 tab PO DAILY 90 days levothyroxine 100 mcg PO DAILY 90 days HPI Comments Details: This?a?38?yo female who is s/p LSG without hiatal hernia repair on?08/29/[address] Hernandez. Presents for 2 year 11 month post op visit. She was last seen in the office in May 2024, at that time her weight was 199.2 lb with a BMI of 35.3. There has been a 47.8 pound weight loss,(initial weight 247 pounds) since starting the program on 05/27/21 reflecting a 19.3% total body weight loss and a weight loss of 18.3 pounds since surgery (operative weight 217.5 pounds) reflecting a 8.4% TBWL since surgery.? No complaints of nausea, emesis, abdominal pain or reflux. Reports infrequent but normal bowel movements every 2- 3 days.? Still taking mvi and mathew+D. Weight today is 207.4 lb with a BMI of 36.7. She states that she is working 2nd shift, 3-11 and gets home very late at night. She is using the right BMI haider although only started this 2 days ago. She was last seen in the office approximately 2 months ago. Her Zepbound was denied, appeal was placed and this was also denied, her insurance stating that she needed to be on anti anxiety medications for 3 months prior to possible approval. She does state that she has trialed phentermine in the past, per record at [facility], this was through her primary care physician in November 2023, however this caused tachycardia and needed to be discontinued. Since she failed phentermine in the past due to adverse reaction, tachycardia, it would be appropriate for her to start GLP 1 medication. Present meal plan includes: premier protein rtd 30 gm protein 10 am fit crunch bar at noon another shake at 2 pm meal 6 pm 6 forks meat and 6 forks veg fit crunch bar at 10 pm Drinking 64 oz water ? Exercise routine includes: started 1 week ago 3 days per week, treadmill 45 min, 250-300 calories [facility] Medical History Liver fibrosis Steatosis, liver GERD (gastroesophageal reflux disease) Knee pain Back pain Morbid obesity Elevated prolactin level Obesity Vitamin D deficiency History of Graves' disease Postablative hypothyroidism Hypothyroidism Surgical History (Updated 08/10/24 @ 11:43 by JUSTICE Triplett) Status post sleeve gastrectomy Hx of section Hx of cholecystectomy Family History Father Hypertension Mother Thyroid disease Maternal Grandmother Family history of diabetes mellitus (DM) Hypertension Thyroid disease Paternal Grandmother Hypertension Paternal Grandfather No problems noted. Social History (Updated 08/10/24 @ 11:06 by Marii Menezes CMA) Household Members: Spouse Both parents involved: Yes Housing: Apartment Are you a primary memory care director to a significant other at home: No Do you presently have visiting nurse or other home services: No Alcohol intake: current Alcohol intake frequency: holidays/special occasions only Patient Tobacco Use Status: Never used Tobacco service: No Current occupational status: employed Sexual orientation: Lesbian/Briones/Homosexual Female Reproductive History Menstrual Age of Menarche: 10 Physical Exam Vital Signs: Last Vital Signs Temp 97.4 F 08/10/24 11:08 Pulse 70 08/10/24 11:08 BP 103/61 08/10/24 11:08 Pulse Ox 98 08/10/24 11:08 Oxygen Delivery Method Room Air 08/10/24 11:08 BMI result Body Mass Index 36.7 Const General: healthy appearing and no acute distress Resp Effort & Inspection: normal respiratory effort Auscultation: clear to auscultation bilaterally Cardio Rate: regular rate Rhythm: regular rhythm GI Auscultation: normal bowel sounds Extrem General: Yes normal to inspection Assessment & Plan Assessment & Plan (1) Status post sleeve gastrectomy: Code(s): Z90.3 - Acquired absence of stomach [part of] Category: Surgical Plan: Patient went onto the right BMI haider, she has a meal plan, but just started it this past Thursday. She has been encouraged to continue to follow the plan consistently. Encouraged to text with any questions or concerns. Encouraged to text weights weekly. We will appeal to her [employer] insurance company for GLP 1 coverage given tachycardia with phentermine. Phentermine needed to be stopped. This was previously prescribed by her primary care physician per [facility] record, last prescribed in November 2023. Encouraged to go to the gym and exercise regularly, following cardio recommendations with a goal of burning 300 calories per day or 2000 calories per week. We will have her return to the office in approximately 1 month.
[2024-08-10 11:08] VITALS: BP 103/61; PULSE 70; TEMP 36.3; O2SAT 98; BMI 36.7
--- OUTSIDE RECORDS SUMMARY | 2024-08-10 12:21 | XMS_ITS | Clinical Summary ---
[facility] Address [address] [place] [address] Care Team Providers Care Anesthesia Attending Name Role Phone Unavailable Primary Care Provider Unavailabl e Encounters Date Type Department Care Team Description 05/23/2024 Telephone Obstetrics & Gynecology - [address] [phone] Ally Fernandez CNM medical rcords (3 received via fax [facility] from Last 3 Months Surgical History Surgery [...]
== END 2024-08-10 11:44 | disposition home or self-care (01) ==
LOC: HO.HBS 10:54
PROVIDERS: PCP Internal Medicine; Visit Provider Physician Assistant Surgical
DX: E66.9 Obesity, unspecified (principal); Z68.36 Body mass index [BMI] 36.0-36.9, adult; Z90.3 Acquired absence of stomach [part of]; Z98.84 Bariatric surgery status
CPT/HCPCS: 99213

== ENCOUNTER → 2024-08-10 10:54 | Outpatient (BNVA) | payer MEDICAID, SELFPAY | PROVIDERS: PCP Internal Medicine; Visit Provider Physician Assistant Surgical | DX: E66.9 Obesity, unspecified (principal); Z68.36 Body mass index [BMI] 36.0-36.9, adult; Z90.3 Acquired absence of stomach [part of] | CPT/HCPCS: 99212 ==

== ENCOUNTER → 2024-08-22 10:58 | Outpatient (BNVA) | payer MEDICAID, SELFPAY | PROVIDERS: PCP Internal Medicine; Visit Provider Physician Assistant Surgical ==

== ENCOUNTER → 2024-09-12 07:58 | Outpatient (REF) | payer MEDICAID, SELFPAY ==
--- NOTE | ~2024-09-12 | NM_ITS ---
EXAMINATION: NM HEPATOBILIARY WITHOUT PHARM HISTORY: RUQ PAIN, HX CHOLECYSTECTOMY. TECHNIQUE: An hepatobiliary scan was performed following the intravenous administration of 5.0 mCi technetium 99m-mebrofenin. Sequential images were obtained to 1 hour. COMPARISON: Correlation is made with a CT of the abdomen with contrast dated 06/23/2023. FINDINGS: There is normal uptake and excretion of the radiopharmaceutical by the liver. Common bile duct activity is seen at 8 minutes. Small bowel activity is noted at 26 minutes. NM/NM hepatobiliary wo pharm IMPRESSION: Normal postcholecystectomy hepatobiliary scan. Electronically signed by: Onel Mcguire MD 09/12/2024 09:58 AM EDT
--- OUTSIDE RECORDS SUMMARY | 2024-09-12 08:04 | XMS_ITS | Clinical Summary ---
[facility] Address [address] [place] [address] Care Team Providers Care Rat Poisoner Name Role Phone Unavailable Primary Care Provider Unavailabl e Surgical History Surgery Date Site/Laterality Comments OTHER [...]
== END ==
LOC: HO.NUCMED 07:58
PROVIDERS: PCP Internal Medicine; Visit Provider Internal Medicine
DX: R60.1 Generalized edema (principal)
CPT/HCPCS: 78226; A9537

== ENCOUNTER → 2024-09-12 08:15 | Outpatient (BNV) | payer MEDICAID, SELFPAY | PROVIDERS: PCP Internal Medicine; Visit Provider Radiology Diagnostic Radiology | DX: R10.11 Right upper quadrant pain (principal); Z90.49 Acquired absence of other specified parts of digestive tract | CPT/HCPCS: 78226 ==

== ENCOUNTER 2024-09-14 09:37 | Outpatient (AMB) | payer MEDICAID, SELFPAY ==
--- NOTE | 2024-09-14 09:39 | MHC.OFFVISWM ---
VS Expanded 09/14/24 09:47 BP 112/60 Blood Pressure Location Rt brachial Blood Pressure Position Sitting Pulse 83 Pulse Source Pulse Oximeter Temp 97.2 F Temperature Source Temporal Artery Scan Pulse Oximetry 96 Oxygen Delivery Method Room Air Height 5 ft 3 in Weight 195 lb 12.8 oz BMI 34.7 Body Fat % 41.8 Body Fat Mass 81.8 Fat Free Mass 114.0 Visceral Fat Rating 10.0 Body Water % 41.7 Body Water Mass 81.6 Muscle Mass/Score 108.2 Basal Metabolic Rate/Score 1,593 Intake Visit Reasons: (OV) PO LSG 08/29/21 Allergies No Known Allergies (No Known Allergies*) Allergy (Verified 08/22/24 11:35) HPI Comments Details: This?a?38?yo female who is s/p LSG without hiatal hernia repair on?08/29/[address] Hernandez. Presents for 3 year post op visit. Weight today is 195.8 lb with a BMI of 34.7. There has been a 51.2 pound weight loss,(initial weight 247 pounds) since starting the program on 05/27/21 reflecting a 20.7% total body weight loss and a weight loss of 21.7 pounds since surgery (operative weight 217.5 pounds) reflecting a 9.9% TBWL since surgery.? No complaints of nausea, emesis, abdominal pain or reflux. Reports infrequent but normal bowel movements every 2-3 days.? Still taking mvi and mathew+D. She was last seen in the office approximately a month ago. Her Zepbound was approved and she was started at the 2.5 mg dose. Only complaint is some mild constipation which has since resolved Present meal plan includes: premier protein rtd 30 gm protein 10 am-12 another shake at 1-3 pm 1/2 pure protein bar 4-6 pm meal 6 pm 6 forks meat and 6 forks veg another bar at 10 pm-12 Drinking 64 oz water ? Exercise routine includes: home exercises zoomba, 30 min weights PFSH Medical History Liver fibrosis Steatosis, liver GERD (gastroesophageal reflux disease) Knee pain Back pain Morbid obesity Elevated prolactin level Obesity Vitamin D deficiency History of Graves' disease Postablative hypothyroidism Hypothyroidism Surgical History (Updated 08/10/24 @ 11:43 by JUSTICE Triplett) Status post sleeve gastrectomy Hx of section Hx of cholecystectomy Family History Father Hypertension Mother Thyroid disease Maternal Grandmother Family history of diabetes mellitus (DM) Hypertension Thyroid disease Paternal Grandmother Hypertension Paternal Grandfather No problems noted. Social History (Updated 08/10/24 @ 11:06 by Marii Menezes CMA) Household Members: Spouse Both parents involved: Yes Housing: Apartment Are you a primary childcare center director to a significant other at home: No Do you presently have visiting nurse or other home services: No Alcohol intake: current Alcohol intake frequency: holidays/special occasions only Patient Tobacco Use Status: Never used Tobacco service: No Current occupational status: employed Sexual orientation: Lesbian/Briones/Homosexual Female Reproductive History Menstrual Age of Menarche: 10 Physical Exam Const General: healthy appearing and no acute distress Resp Effort & Inspection: normal respiratory effort Auscultation: clear to auscultation bilaterally Cardio Rate: regular rate Rhythm: regular rhythm GI Auscultation: normal bowel sounds Extrem General: Yes normal to inspection Assessment & Plan Assessment & Plan (1) Status post sleeve gastrectomy: Code(s): Z90.3 - Acquired absence of stomach [part of] Category: Surgical Plan: We will increase dose to 5 mg of the Zepbound. Encouraged to increase exercise as she is able. Additionally, encouraged to go back into the haider to put in her new weight as she is having too much protein. We will have her return to the office in approximately 1 month. Medications: New tirzepatide (weight loss) (Zepbound) 5 mg (0.5 mL) subcut QWEEK 2 mL 0RF Discontinued tirzepatide (weight loss) (Zepbound) for 4 weeks Discontinued Reason: Doctor's Order 2.5 mg (0.5 mL) subcut QWEEK 2 mL 0RF
[2024-09-14 09:47] VITALS: BP 112/60; PULSE 83; TEMP 36.2; O2SAT 96; BMI 34.7
--- OUTSIDE RECORDS SUMMARY | 2024-09-14 10:48 | XMS_ITS | Clinical Summary ---
[facility] Address [address] [place] [address] Care Team Providers Care Top Knitter Name Role Phone Unavailable Primary Care Provider [...]
== END 2024-09-14 09:58 | disposition home or self-care (01) ==
LOC: HO.HBS 09:38
PROVIDERS: PCP Internal Medicine; Visit Provider Physician Assistant Surgical
DX: E66.09 Other obesity due to excess calories (principal); Z68.34 Body mass index [BMI] 34.0-34.9, adult; Z90.3 Acquired absence of stomach [part of]; Z98.84 Bariatric surgery status
CPT/HCPCS: 99213

== ENCOUNTER → 2024-09-14 09:37 | Outpatient (BNVA) | payer MEDICAID, SELFPAY | PROVIDERS: PCP Internal Medicine; Visit Provider Physician Assistant Surgical | DX: Z90.3 Acquired absence of stomach [part of] (principal) | CPT/HCPCS: 99212 ==

== ENCOUNTER 2024-10-14 10:54 | Outpatient (AMB) | payer MEDICAID, SELFPAY ==
[2024-10-14 10:57] VITALS: BP 112/71; PULSE 84; TEMP 36.1; O2SAT 99; BMI 32.9
--- NOTE | 2024-10-14 10:57 | A.OFFVIS_ITS ---
VS Expanded 10/14/24 10:57 BP 112/71 Blood Pressure Location Rt brachial Blood Pressure Position Sitting Pulse 84 Pulse Source Pulse Oximeter Temp 97.0 F Temperature Source Temporal Artery Scan Pulse Oximetry 99 Oxygen Delivery Method Room Air Height 5 ft 3 in Weight 185 lb 12.8 oz BMI 32.9 Body Fat % 41.3 Body Fat Mass 76.8 Fat Free Mass 109.0 Visceral Fat Rating 9.0 Body Water % 41.9 Body Water Mass 77.8 Muscle Mass/Score 103.4 Basal Metabolic Rate/Score 1,523 Intake Visit Reasons: (OV) PO LSG 08/29/21 Print Manager Required: No Allergies No Known Allergies (No Known Allergies*) Allergy (Verified 10/14/24 11:00) Medication List - Last Reconciled 10/14/24 by JUSTICE Triplett [celebrate MVI PO DAILY] levothyroxine 100 mcg PO DAILY 90 days tirzepatide (weight loss) (Zepbound) 5 mg (0.5 mL) subcut QWEEK HPI Comments Details: This?a?38?yo female who is s/p LSG without hiatal hernia repair on?08/29/[address] Hernandez. Presents for 3 year 1 month post op visit. Weight today is 185.8 lb with a BMI of 32.9. There has been a 61.2 pound weight loss,(initial weight 247 pounds) since starting the program on 05/27/21 reflecting a 24.7% total body weight loss and a weight loss of 31.7 pounds since surgery (operative weight 217.5 pounds) reflecting a 14.5% TBWL since surgery.? No complaints of nausea, emesis, abdominal pain or reflux. Reports infrequent but normal bowel movements every 2-3 days.? Still taking mvi and mathew+D. She is doing very well on the Zepbound. Dose was increased to 5 mg. She did have 2 days of nausea after the 1st dose but since then has done very well without any nausea. She denies any constipation or increased depression or anxiety. She did not update the right BMI haider as we discussed last visit. I encouraged her to do that again, she changed it in the office in front of me and her protein shakes were reduced by half. Present meal plan includes: 03/24 premier protein rtd 30 gm protein 10 am-12 1/2 another shake at 1-3 pm 1/2 pure protein bar 4-6 pm meal 6 pm 6 forks meat and 6 forks veg another bar at 10 pm-12 Drinking 64 oz water ? Exercise routine includes: walking outside daily, 4-5 mi home exercises zoomba, 30 min weights PFSH Medical History Liver fibrosis Steatosis, liver GERD (gastroesophageal reflux disease) Knee pain Back pain Morbid obesity Elevated prolactin level Obesity Vitamin D deficiency History of Graves' disease Postablative hypothyroidism Hypothyroidism Surgical History Status post sleeve gastrectomy Hx of section Hx of cholecystectomy Family History Father Hypertension Mother Thyroid disease Maternal Grandmother Family history of diabetes mellitus (DM) Hypertension Thyroid disease Paternal Grandmother Hypertension Paternal Grandfather No problems noted. Social History Household Members: Spouse Both parents involved: Yes Housing: Apartment Are you a primary manager progressive care to a significant other at home: No Do you presently have visiting nurse or other home services: No Alcohol intake: current Alcohol intake frequency: holidays/special occasions only Patient Tobacco Use Status: Never used Tobacco service: No Current occupational status: employed Sexual orientation: Lesbian/Briones/Homosexual Female Reproductive History Menstrual Age of Menarche: 10 Physical Exam Const General: healthy appearing and no acute distress Resp Effort & Inspection: normal respiratory effort Auscultation: clear to auscultation bilaterally Cardio Rate: regular rate Rhythm: regular rhythm GI Auscultation: normal bowel sounds Extrem General: Yes normal to inspection Assessment & Plan Assessment & Plan (1) Status post sleeve gastrectomy: Code(s): Z90.3 - Acquired absence of stomach [part of] Category: Surgical Plan: Patient is now making progress, losing weight consistently, encouraged 2-3 lb weight loss per week. Continue exercising daily. Continue to text with any questions or concerns. Zepbound was renewed at the 5 mg dose. Follow-up in the office in 1 month Medications: Refilled tirzepatide (weight loss) (Zepbound) 5 mg (0.5 mL) subcut QWEEK 2 mL 0RF
--- OUTSIDE RECORDS SUMMARY | 2024-10-14 11:03 | XMS_ITS | Clinical Summary ---
[facility] Address [address] [place] [address] Care Team Providers Care Melter Helper Name Role Phone Unavailable Primary Care Provider [...] Cervical Cancer Screening: P ap Smear 11/30/2004 HIV Screening 02/23/2022 Hepatitis C Screening 02/23/2022 Social Influencers of Health Screening 02/23/2022 COVID-19 Vaccine ( - 2023-2 5 season) 2023 Depression Screening 03/23/2024 Influenza Vaccine (#1) 2024 HIB Vaccines Aged Out No longer [...] 5 Years) and At-Risk Patients (6 to 49 Years) Aged Out No longer eligible b ased on patient's age to complete this topic RSV Immunization Patients Un manuelito 20 months Aged Out No longer eligible b ased on patient's age to complete this topic Varicella Vaccines Aged Out No longer eligible based on patient's age to complete this topic
== END 2024-10-14 11:25 | disposition home or self-care (01) ==
LOC: HO.HBS 10:54
PROVIDERS: PCP Internal Medicine; Visit Provider Physician Assistant Surgical
DX: E66.9 Obesity, unspecified (principal); Z68.32 Body mass index [BMI] 32.0-32.9, adult; Z90.3 Acquired absence of stomach [part of]; Z98.84 Bariatric surgery status
CPT/HCPCS: 99213

== ENCOUNTER → 2024-10-14 10:54 | Outpatient (BNVA) | payer MEDICAID, SELFPAY | PROVIDERS: PCP Internal Medicine; Visit Provider Physician Assistant Surgical | DX: Z90.3 Acquired absence of stomach [part of] (principal); Z79.899 Other long term (current) drug therapy | CPT/HCPCS: 99212 ==

== ENCOUNTER 2024-11-09 10:13 | Outpatient (AMB) | payer MEDICAID, SELFPAY ==
--- NOTE | 2024-11-09 09:37 | A.OFFVIS_ITS ---
VS Expanded 11/09/24 09:38 Height 5 ft 3 in Weight 177 lb 6 oz BMI 31.4 Intake Visit Reasons: (TV) PO LSG 08/29/21 Allergies No Known Allergies (No Known Allergies*) Allergy (Verified 10/14/24 11:00) HPI Comments Details: This?a?38?yo female who is s/p LSG without hiatal hernia repair on?08/29/[address] Hernandez. Presents for 3 year 2 month post op visit. Weight today is 177.6 lb with a BMI of 31.4. There has been a 69.4 pound weight loss,(initial weight 247 pounds) since starting the program on 05/27/21 reflecting a 28% total body weight loss and a weight loss of 39.9 pounds since surgery (operative weight 217.5 pounds) reflecting a 18.3 % TBWL since surgery.? No complaints of nausea, emesis, abdominal pain or reflux. Reports infrequent but normal bowel movements every 2-3 days.? Still taking mvi and mathew+D. She is doing very well on the Zepbound. Dose was increased to 5 mg. She did have 2 days of nausea after the 1st dose but since then has done very well without any nausea. She denies any constipation or increased depression or anxiety. She did not update the right BMI haider as we discussed last visit. She is following the meal plan and doing very well. Has no complaints at today's visit. She does note she has increase time at the gym now that her son is going to be starting school again Present meal plan includes: 1/2 premier protein rtd 30 gm protein 10 am-12 1/2 another shake at 1-3 pm 1/2 pure protein bar 4-6 pm meal 6 pm 6 forks meat and 6 forks veg another bar at 10 pm-12 Drinking 64 oz water ? Exercise routine includes: gym 4 days per week cardio 45 min 350 calories walking outside daily, 4-5 mi weights PFSH Medical History Liver fibrosis Steatosis, liver GERD (gastroesophageal reflux disease) Knee pain Back pain Morbid obesity Elevated prolactin level Obesity Vitamin D deficiency History of Graves' disease Postablative hypothyroidism Hypothyroidism Surgical History Status post sleeve gastrectomy Hx of section Hx of cholecystectomy Family History Father Hypertension Mother Thyroid disease Maternal Grandmother Family history of diabetes mellitus (DM) Hypertension Thyroid disease Paternal Grandmother Hypertension Paternal Grandfather No problems noted. Social History Household Members: Spouse Both parents involved: Yes Housing: Apartment Are you a primary care transport nurse to a significant other at home: No Do you presently have visiting nurse or other home services: No Alcohol intake: current Alcohol intake frequency: holidays/special occasions only Patient Tobacco Use Status: Never used Tobacco service: No Current occupational status: employed Sexual orientation: Lesbian/Briones/Homosexual Female Reproductive History Menstrual Age of Menarche: 10 Telehealth Telehealth Telehealth Platform: Telephone Location of provider rendering services: practice address Location of patient: address on file Patient Identification confirmed using: Name, : Yes Telehealth method: voice only Patient verbally consented to treatment: Yes Patient verbally consented to billing insurance company: Yes Patient informed of any privacy concerns related to visit: Yes Minutes spent on Phone/Video with Pt.: 15 Assessment & Plan Assessment & Plan (1) Status post sleeve gastrectomy: Code(s): Z90.3 - Acquired absence of stomach [part of] Category: Surgical Plan: Patient continue to lose weight consistently. She is tolerating Zepbound which we have renewed. She is exercising more consistently in following her meal plan. She is using the right BMI haider. we will have her return to the office for a follow-up phone call. Text with any questions or concerns. Medications: Refilled tirzepatide (weight loss) (Zepbound) 5 mg (0.5 mL) subcut QWEEK 2 mL 0RF
[2024-11-09 09:38] VITALS: BMI 31.4
--- OUTSIDE RECORDS SUMMARY | 2024-11-09 11:24 | XMS_ITS | Clinical Summary ---
[facility] Address [address] [place] [address] Care Team Providers Care Sports Bookmaker Name Role Phone Unavailable Primary Care Provider [...]
== END 2024-11-09 10:25 | disposition home or self-care (01) ==
LOC: HO.HBS 10:13
PROVIDERS: PCP Internal Medicine; Visit Provider Physician Assistant Surgical
DX: Z90.3 Acquired absence of stomach [part of] (principal)
CPT/HCPCS: 99213

== ENCOUNTER 2025-01-03 07:48 | Outpatient (REF) | payer MEDICAID, SELFPAY ==
--- OUTSIDE RECORDS SUMMARY | 2025-01-03 07:50 | XMS_ITS | Encounter Summary ---
Author Organization [facility] [employer] [facility] Address [address] [place] [address] Care Team Providers Care Baker Doughnut Name Role Phone Unavailable Primary Care Provider Unavailabl e Encounter Details Date Type Department Care Team (Late st Contact Info) Description 12/30/2024 Telephone [facility] ADULT D[facility] [address] [place] [address] Sapna Banks DDS [address] [place] [address] Social History Tobacco Use Types Packs/Day Years Used Date Smoking Tobacco: Never Passive Smoke Exposure: Never Smokeless Tobacco: Never Alcohol Use Standard Drinks/Week Comments Never 0 (1 standard drink = 0.6 oz pur e alcohol) Comments Unknown Sex and Gender Information Value Date Recorded Sex Assigned at Female 01/20/2022 10:39 AM EDT Legal Sex Female 10:39 AM EDT Gender Identity Female 01/20/2022 10:39 AM EDT Sexual Orientation Straight 01/20/2022 10 :39 AM EDT documented as of this encounter Miscellaneous Notes * Telephone Encounter - Kenneth Smith - 12/30/2024 9:06 AM EDT lm for Do to contact the office to schedule her pending appointment documented in this encounter Plan of Treatment Upcoming Encounters Date Type Department Care Team (Late st Contact Info) Description 01/25/2025 8:00 AM EST Office Visit [facility]ULT [facility] [address] [place] [address] Sapna Banks DDS [address] [place] [address] documented as of this encounter Visit Diagnoses Not on filedocumented in this encounter
--- OUTSIDE RECORDS SUMMARY | 2025-01-03 07:50 | XMS_ITS | Clinical Summary ---
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
--- OUTSIDE RECORDS SUMMARY | 2025-01-03 07:50 | XMS_ITS | Clinical Summary ---
Author Organization [employer] Address [address] [place] [address] Care Team Providers Care Oracle Database Administrator Name Role Phone Unavailable Primary Care Provider Unavailabl e Allergies Active Allergy Reactions Criticality Noted Date Comments Pollen Extract 12/06/2024 Medications acetaminophen (Tylenol 8 Hour) 650 MG ER tablet Take 1 tablet (650 mg) by mouth every 8 (eight) hours if needed for moderate pain for up to 10 days. Do not crush, chew, or split. 15 tablet 12/17/19 25 Active Problems Problem Noted Date Diagnosed Date Gingival recession, localized 11/15/2024 Symptomatic irreversible pulpitis 11/15/2024 Encounters Date Type Department Care Team Description 12/30/2024 Telephone [facility] ADULT DENTAL [address] [place] [address] Sapna Banks DDS 12/23/2024 Travel 12/06/2024 9:30 AM EDT Office Visit [facility] ADULT [facility] [address] [place] [address] Sapna Banks DDS Symptomatic irreversible pulpitis (Primary Dx) 12/05/2024 Travel 11/15/2024 1:00 PM EDT Office Visit [facility]ULT [facility] [address] [place] [address] Reji Rooney DDS Gingival recession, localized (Primary Dx); Symptomatic irreversible pulpitis 11/15/2024 Travel from Last 3 Months Social History Tobacco Use Types Packs/Day Years Used Date Smoking Tobacco: Never Passive Smoke Exposure: Never Smokeless Tobacco: Never Tobacco Cessation:Counseling Given: No Alcohol Use Standard Drinks/Week Comments Never 0 (1 standard drink = 0.6 oz pur e alcohol) Comments Unknown Sex and Gender Information Value Date Recorded Sex Assigned at Female 01/20/2022 10:39 AM EDT Legal Sex Female 10:39 AM EDT Gender Identity Female 01/20/2022 10:39 AM EDT Sexual Orientation Straight 01/20/2022 10 :39 AM EDT Last Filed Vital Signs Vital Sign Reading Time Taken Comments Blood Pressure 118/68 11/15/2024 1:06 PM EDT Pulse 70 11/15/2024 1:06 PM EDT Temperature - - Respiratory Rate - - Oxygen Saturation - - Inhaled Oxygen Concentration - - Weight - - Height - - Body Mass Index - - Plan of Treatment Upcoming Encounters Date Type Department Care Team (Late st Contact Info) Description 01/25/2025 8:00 AM EST Office Visit [facility] ADULT D[facility] [address] [place], [place] [id number] Sapna Banks, DDS [address] [place] [address] Health Maintenance Due Date Last Done Comments Dental Oral Exam 1983 Dental Prophylaxis 1983 Dental X-Ray: Bitewings 1983 Dental X-Ray: Full Mouth 1983 Depression Screening 1983 HIV Screening 1983 SDOH Screening 1983 Disability Screening 1983 Alcohol/Substance Use Screening 1995 Family Planning (PISQ) 11/30/1998 HPV Vaccines (1 - 3-dose series) 11/30/1998 Hepatitis C Screening 11/30/2001 DTaP/Tdap/Td Vaccines (1 - Tdap) 11/30/2002 Hepatitis B Vaccines (1 of 3 - 19+ 3-dose series) 11/30/2002 Pap Smear 11/30/2004 Cervical Cancer Screening 11/30/2013 HPV/Cotest 11/30/2013 Mammogram 2023 COVID-19 Vaccine (3 - 2024-2 6 season) 2024 12/06/2020, 11/15/2020 Influenza Vaccine (#1) 2024 Tobacco Screening 12/06/2025 12/06/2024 Zoster Vaccines (1 of 2) 11/30/2033 RSV Patients and Patients Aged 60 years or older (1 - 1-dose 75+ series) 11/30/2058 HIB [...] patient's age to complete this topic Meningococcal Vaccine Aged Out No annette rubia eligible based on patient's age to complete this topic Pneumococcal Vaccine: Pediatrics (0 to 5 Years) and At-Risk Patients (6 to 49) Years Aged Out No longer eligible b ased on patient's age to complete this topic RSV under 20 months Aged Out No longe r eligible based on patient's age to complete this topic Rotavirus Vaccines Aged Out No longer eligible based on patient's age to complete this topic Procedures Procedure Name Priority Date/Time Associated Diagnosis Comments CASE PRESENTATION, DETAILED AND EXTENSIVE TREATMENT PLANNING Routine 12/06/2024 9:30 AM EDT CONSULTATION - DIAGNOSTIC SERVICE PROVIDED BY DENTIST OR PHYSICIAN OTHER THAN REQUESTING DENTIST OR PHYSICIAN Routine 12/06/2024 9:30 AM EDT CASE PRESENTATION, DETAILED AND EXTENSIVE TREATMENT PLANNING Routine 11/15/2024 1:00 PM EDT INTRAORAL - PERIAPICAL FIRST RADIOGRAPHIC IMAGE Routine 11/15/2024 1:00 PM EDT LIMITED ORAL EVALUATION - PROBLEM FOCUSED Routine 11/15/2024 1:00 PM EDT 20 O AMALGAM FILLING Routine 11/15/2024 12:00 AM EDT from Last 3 [place] [address] [facility] MEDICAID STAND ADULT
[2025-01-03 08:08] LABS: MANUAL DIFF FLAG NO
[2025-01-03 08:30] LABS: Hematocrit 39.4 % (37.0-47.0); Hemoglobin 13.3 g/dl (12.0-16.0); Imm Gran Abs Auto 0.02 X10*3/uL (0.00-0.03); Imm Gran Pct Auto 0.3 % (0.0-0.4); Lymphocytes Absolute Auto 1.9 X10*3/uL (1.2-4.9); Mean Corpuscular HGB Conc 33.8 g/dl (31.0-35.0); Mean Corpuscular Hemoglobin 29.2 pg (27.0-33.0); Mean Corpuscular Volume 86.4 fL (80.0-98.0); NRBC Abs Auto 0.000 X10*3/uL (0.0-0.012); NRBC Pct Auto 0.0 /100WBC (0.0-0.2); Platelet Count 285 X10*3/uL (160-400); Red Blood Count 4.56 X10*6/uL (4.20-5.50); White Blood Count 6.9 X10*3/uL (4.8-10.8)
[2025-01-03 09:06] LABS: Alanine Aminotransferase 14 U/L (0-31); Albumin Level 4.5 g/dL (3.5-5.0); Alkaline Phosphatase 55 U/L (39-117); Anion Gap 11 (12-20); Aspartate Amino Transferase 22 U/L (5-31); Blood Urea Nitrogen 12 mg/dL (9-16); Calcium 9.2 mg/dL (8.4-10.2); Carbon Dioxide 25 mmol/L (22-29); Chloride 106 mmol/L (96-108); Estimated Glomerular Filt Rate > 60; Potassium 4.4 mmol/L (3.3-5.1); Sodium 138 mmol/L (135-145); Total Protein 7.2 g/dL (6.5-8.0)
[2025-01-03 09:23] LABS: Thyroid Stimulating Hormone 1.03 uIU/mL (0.32-4.0)
== END 2025-01-03 07:49 | disposition home or self-care (01) ==
LOC: HO.LAB 07:48
PROVIDERS: PCP Internal Medicine; Visit Provider Internal Medicine
DX: I10 Essential (primary) hypertension (principal); E03.9 Hypothyroidism, unspecified; L50.8 Other urticaria; R10.11 Right upper quadrant pain
CPT/HCPCS: 36415; 80053; 84443; 85025

== ENCOUNTER 2025-01-23 09:55 | Outpatient (AMB) | payer MEDICAID, SELFPAY ==
--- NOTE | 2025-01-23 10:14 | A.OFFVIS_ITS ---
VS Expanded 01/23/25 10:18 BP 108/58 L Blood Pressure Location Rt brachial Blood Pressure Position Sitting Pulse 75 Pulse Source Pulse Oximeter Temp 97.2 F Temperature Source Temporal Artery Scan Pulse Oximetry 97 Oxygen Delivery Method Room Air Height 5 ft 3 in Weight 171 lb 9.6 oz BMI 30.4 Body Fat % 39.8 Body Fat Mass 68.4 Fat Free Mass 103.2 Visceral Fat Rating 8.0 Body Water % 42.9 Body Water Mass 73.6 Muscle Mass/Score 97.8 Basal Metabolic Rate/Score 1,434 Intake Visit Reasons: OV PO LSG 08/29/21 Allergies No Known Allergies (No Known Allergies*) Allergy (Verified 01/23/25 10:15) Medication List - Last Reconciled 01/23/25 by JUSTICE Eli [celebrate MVI PO DAILY] levothyroxine 100 mcg PO DAILY 90 days tirzepatide (weight loss) (Zepbound) 7.5 mg (0.5 mL) subcut QWEEK HPI Comments Details: This a 39 yo female who is s/p LSG without hiatal hernia repair on 08/29/[address] Hernandez. Presents for 3 year 8 month post op visit. Weight today is 171.6 lb with a BMI of 30.4, with 15lb weight loss since last OV 2mo ago - she notes she weight 186lb at lat OV in October which is different from what is listed in her chart. Initial weight 247 pounds since starting the program on 05/27/21 and operative weight 217.5 pounds. No complaints of nausea, emesis, abdominal pain or reflux. Reports infrequent but normal bowel movements every 2-3 days. Still taking mvi and mathew+D. She is doing very well on the Zepbound. Currently on 5 mg. She did have 2 days of nausea after the 1st dose but since then has done very well without any nausea for additional doses. She denies any constipation or increased depression or anxiety. She is following the meal plan and doing very well. Has no complaints at today's visit. Present meal plan includes: 1/2 premier protein rtd 30 gm protein 10 am-12pm 1/2 another shake at 1-3 pm 1/2 pure protein bar 4-6 pm meal 6 pm 6 forks meat and 6 forks veg another bar at 10 pm-12 Drinking 64 oz water sometimes will exchange a shake for a bar Exercise routine includes: gym 4 days per week cardio 45 min 350 calories walking outside daily, 4-5 mi Have you been diagnosed with reflux (GERD)? Score 0-5: 0=no symptoms, 1=noticeable but not bothersome (slight or occasional), 2=noticeable, bothersome but not daily, 3=bothersome and daily, 4=affects daily activities, 5=incapacitating, unable to do daily activities How bad is the heartburn: 0 Heartburn when lying down: 0 Heartburn when standing up: 0 Heartburn after meals: 0 Does heartburn change your diet: 0 Does heartburn wake you up from sleep: 0 Do you have difficulty swallowin Do you have pain with swallowin If you take medication for reflux, does this affect your daily life: 0 Total score: 0 PFSH Medical History Liver fibrosis Steatosis, liver GERD (gastroesophageal reflux disease) Knee pain Back pain Morbid obesity Elevated prolactin level Obesity Vitamin D deficiency History of Graves' disease Postablative hypothyroidism Hypothyroidism Surgical History Status post sleeve gastrectomy Hx of section Hx of cholecystectomy Family History Father Hypertension Mother Thyroid disease Maternal Grandmother Family history of diabetes mellitus (DM) Hypertension Thyroid disease Paternal Grandmother Hypertension Paternal Grandfather No problems noted. Social History Household Members: Spouse Both parents involved: Yes Housing: Apartment Are you a primary medicare insurance specialist to a significant other at home: No Do you presently have visiting nurse or other home services: No Alcohol intake: current Alcohol intake frequency: holidays/special occasions only Patient Tobacco Use Status: Never used Tobacco service: No Current occupational status: employed Sexual orientation: Lesbian/Briones/Homosexual Female Reproductive History Menstrual Age of Menarche: 10 Physical Exam Vital Signs: Last Vital Signs Temp 97.2 F 01/23/25 10:18 Pulse 75 01/23/25 10:18 BP 108/58 L 01/23/25 10:18 Pulse Ox 97 01/23/25 10:18 Oxygen Delivery Method Room Air 01/23/25 10:18 BMI result Body Mass Index 30.4 Assessment & Plan Assessment & Plan (1) Obesity: Code(s): E66.9 - Obesity, unspecified Category: Medical (2) Status post sleeve gastrectomy: Code(s): Z90.3 - Acquired absence of stomach [part of] Category: Surgical Plan Pt doing well on Zepbound currently without any major side effects recently. She would like to increase dose so will order 7.5mg for this month. She will continue above meal plan and exercise regimen. No reflux. RTC 3mo. Medications: New 2 tirzepatide (weight loss) (Zepbound) 7.5 mg (0.5 mL) subcut QWEEK 2 mL 0RF Discontinued tirzepatide (weight loss) (Zepbound) Discontinued Reason: Doctor's Order 5 mg (0.5 mL) subcut QWEEK 2 mL 0RF
[2025-01-23 10:18] VITALS: BP 108/58; PULSE 75; TEMP 36.2; O2SAT 97; BMI 30.4
--- OUTSIDE RECORDS SUMMARY | 2025-01-23 11:39 | XMS_ITS | Clinical Summary ---
[facility] Organization [facility] Address [address] [place] [address] Care Team Providers Care Sensitometrist Name Role Phone Unavailable Primary Care Provider [...]
--- OUTSIDE RECORDS SUMMARY | 2025-01-23 11:39 | XMS_ITS | Clinical Summary ---
Author Organization [employer] Address [address] [place] [address] Care Team Providers Care Character Actor Name Role Phone Unavailable Primary Care Provider Unavailabl e Allergies Active Allergy Reactions Criticality Noted Date Comments Pollen Extract 12/06/2024 Medications No known medications Active Problems Problem Noted Date Diagnosed Date Gingival recession, localized 11/15/2024 Symptomatic irreversible pulpitis 11/15/2024 Encounters Date Type Department Care Team Description 12/30/2024 Telephone [facility] ADULT DENT[facility] [address] [place] [address] Sapna Banks DDS 12/23/2024 Travel 12/06/2024 9:30 AM EDT Office Visit [facility]ULT [facility] [address] [place] [address] Sapna Banks DDS Symptomatic irreversible pulpitis (Primary Dx) 12/05/2024 Travel 11/15/2024 1:00 PM EDT Office Visit [facility] ADULT DENT[facility] [address] [place] [address] Reji Rooney DDS Gingival recession, localized (Primary [...] Description 01/25/2025 8:00 AM EST Office Visit [facility] ADULT DENT[facility] [address] [place] [address] Schwab-QuilesGeorgeSapna, DDS [address] [place] [address] Health Maintenance Due Date Last Done Comments [...] AM EDT from Last 3 Months Insurance [facility] MEDICAID STAND ADULT
== END 2025-01-23 10:46 | disposition home or self-care (01) ==
PROVIDERS: PCP Internal Medicine; Visit Provider Physician Assistant Surgical
DX: E66.9 Obesity, unspecified (principal); Z90.3 Acquired absence of stomach [part of]
CPT/HCPCS: 99214

== ENCOUNTER → 2025-01-23 09:55 | Outpatient (BNVA) | payer MEDICAID, SELFPAY | PROVIDERS: PCP Internal Medicine; Visit Provider Physician Assistant Surgical | DX: E66.9 Obesity, unspecified (principal); Z90.3 Acquired absence of stomach [part of] | CPT/HCPCS: 99212 ==

== ENCOUNTER 2025-02-09 10:33 | Outpatient (AMB) | payer MEDICAID, SELFPAY ==
[2025-02-09 10:34] VITALS: BP 122/66; PULSE 80; O2SAT 98; BMI 29.9
--- NOTE | 2025-02-09 10:34 | A.OFFVIS_ITS ---
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 Allergies No Known Allergies (No Known Allergies*) Allergy (Verified 02/09/25 10:37) Medication List - Last Reconciled 02/09/25 by Radha Espinoza CNM [celebrate MVI PO DAILY] levothyroxine 100 mcg PO DAILY 90 days tirzepatide (weight loss) (Zepbound) 7.5 mg (0.5 mL) subcut QWEEK Is last menstrual period known: Yes Last menstrual period: 02/05/25 HPI HPI 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 On the other hand she does notice she feels very good after her period and she feels extremely good around the time of ovulation. 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 She is to her . Things are good She had gastric surgery years ago and lost from 250 or 260 something down to 160. But then she gradually gained some weight back and was 207 in July so she also followed up with Dr. Marshall and she started on Zepbound and she has had great success with that she did have a little nausea at the start but that is all she goes to the gym at least 3 times a week and she is eating very well she feels very good. She is not due for Pap she has no concerns whatsoever about vaginal infection. She is at the end of her period now she uses tampons. In general she does not like taking any pills or medicine of any sort because of the side effects so she weighs what she decides to take very carefully and she is just on the levothyroxine and the Zepbound. PFSH Medical History Liver fibrosis Steatosis, liver GERD (gastroesophageal reflux disease) Knee pain Back pain Morbid obesity Elevated prolactin level Obesity Vitamin D deficiency History of Graves' disease Postablative hypothyroidism Hypothyroidism Surgical History Status post sleeve gastrectomy Hx of section Hx of cholecystectomy Family History Father Hypertension Mother Thyroid disease Maternal Grandmother Family history of diabetes mellitus (DM) Hypertension Thyroid disease Paternal Grandmother Hypertension Paternal Grandfather No problems noted. Social History Household Members: Spouse Both parents involved: Yes Housing: Apartment Are you a primary animal care service worker to a significant other at home: No Do you presently have visiting nurse or other home services: No Alcohol intake: current Alcohol intake frequency: holidays/special occasions only Patient Tobacco Use Status: Never used Tobacco service: No Current occupational status: employed Sexual orientation: Lesbian/Briones/Homosexual Female Reproductive History Menstrual Age of Menarche: 10 Duration of menses: 3-5 days Date of last menstrual period: 02/05/25 control method: none Total pregnancies: 1 Number of Living Children: 1 Date of last pap smear: 11/28/20 History of abnormal pap smear: No History of STI: No Date of Mammogram: 03/31/24 History of abnormal mammogram: No Physical Exam Vital Signs: Last Vital Signs Pulse 80 02/09/25 10:34 BP 122/66 02/09/25 10:34 Pulse Ox 98 02/09/25 10:34 Oxygen Delivery Method Room Air 02/09/25 10:34 BMI result Body Mass Index 29.9 Const General: healthy appearing, comfortable, no acute distress, well developed and alert Nutritional Appearance: average body habitus Orientation/consciousness: patient oriented x3 Limitations: no limitations HEENT Head: Yes normocephalic Neck Neck: Yes normal visual inspection Chest Chest palpation & inspection: normal inspection of the chest Breast/axilla inspection: normal inspection of the breasts and normal inspection of the axillae Breast/axilla palpation: normal palpation of the breasts and normal palpation of the axillae Resp Effort & Inspection: normal respiratory effort GI Inspection: Yes normal to inspection, No Abdominal wall edema and No distended Palpation (GI): Soft to palpation and nontender Other: External exam within normal limits vagina is pink slightly moist also slightly dry consistent with end of menses tampon use. Scant light menses coming from cervix cervix nulliparous pink smooth healthy appearing no abnormal discharge whatsoever cervix long close thick mobile nontender uterus midposition mobile nontender nonenlarged that I can appreciate adnexa nontender nonenlarged. Good muscle tone. General: Yes bladder normal to palpation External Female Exam: normal external appearance and normal appearance of the urethra Speculum Exam - Vagina: normal appearance of the vagina, normal palpation and normal vaginal discharge Speculum Exam - Cervix: normal appearance of the cervix, normal palpation and nontender Bimanual exam- vagina & uterus: normal bimanual exam, normal palpation, uterine size normal, bladder normal to palpation, consistency normal, normal palpation, uterine mobility normal, uterine shape normal, No Cervical tenderness present, non-tender and no cervical motion tenderness Bimanual Exam- Adnexa, other: normal adnexae, no masses, normal and No adnexal tenderness Neuro General: patient oriented x3 Results Reviewed Results Reviewed: [facility] [address] [place] [address] Mammography Report Signed Patient: Do Ashley MR#: [id number] : 1985 Acct:[id number] Age/Sex: 38 / F ADM Date: 03/31/24 Loc: [facility] Attending Dr: Radha Espinoza CNM Ordering Physician: Radha Espinoza CNM Results: 1Negative Date of Service: 03/31/24 Follow Up: 1 Year From Original Mammogram Procedure(s): MM tomosynthesis screening BI Accession Number(s): [id number] cc: Edilma Reagan MD; Radha Espinoza CNM~ EXAMINATION: MM SCREENING DIGITAL BREAST TOMOSYNTHESIS, BILATERAL CLINICAL INFORMATION: Screening. Asymptomatic. COMPARISON: Mammography: Comparison is made with available priors TECHNIQUE: Digital breast mammography with tomosynthesis is performed in both the craniocaudal and mediolateral oblique views along with computer-aided detection (CAD). FINDINGS: There are scattered areas of fibroglandular density (ACR BI-RADS breast composition Category b). There are no significant masses, abnormal calcifications, or other abnormalities. MM/MM tomosynthesis screening BI IMPRESSION: No mammographic evidence of malignancy. ASSESSMENT: BI-RADS BI-RADS 1 - Negative RECOMMENDATION: Routine annual mammography screening. 1 year F/U This examination should not preclude the clinical evaluation of a suspicious palpable abnormality. This patient's information was entered into a reminder system with a target due date for their next mammogram. Electronically signed by: Zuleika Dillon DO 04/07/2024 12:35 PM EST Dictated By: Zuleika Dillon DO Signed By: <Electronically signed by Zuleika Dillon DO in OV> 04/07/24 1235 DD/ 1100 TD/TT: 03/31/24 1130 Pneumatic System Conveyor Operator: Patient: Do Ashley MR#: [id number] : 1985 Acct:[id number] Age/Sex: 38 / F ADM Date: 02/11/24 Loc: .[place] Attending Dr: Radha Espinoza CNM Ordering Physician: Radha Espinoza CNM Date of Service: 02/11/24 Procedure(s): US pelvic and transvaginal Accession Number(s): [id number] cc: Edilma Reagan MD; Radha Espinoza CNM~ EXAMINATION: US PELVIS CLINICAL INFORMATION: Last menstrual period 01/18/2024, menorrhagia. COMPARISON: CT abdomen and pelvis of 06/23/2023, pelvic ultrasound of 08/10/2019. TECHNIQUE: Ultrasound of the pelvis is performed using both transabdominal and transvaginal transducers along with Doppler. Transvaginal imaging is performed due to inadequate visualization transabdominally. FINDINGS: The uterus measures 8.6 x 5.2 x 6.0 cm and is anteverted. Endometrium is echogenic with thickness of 11 mm. Nabothian cysts in the cervix. No significant free fluid. 2.7 x 2.0 x 2.4 cm uterine mass characteristic of a fibroid was not identified on the prior study and may abut the endometrium. Left ovary measures 2.7 x 1.5 x 1.5 cm, volume 3.1 mL. Right ovary measures 3.8 x 2.4 x 2.3 cm, volume 11.1 mL. US/US pelvic and transvaginal IMPRESSION: A 2.7 cm uterine mass characteristic of a fibroid was not appreciated on the prior exam. Endometrium is echogenic with thickness of 11 mm. Uterine volume 137.41 mL. Electronically signed by: Hortencia Fuchs MD 04/10/2024 11:49 AM EST Dictated By: Hortencia Fuchs MD Signed By: <Electronically signed by Hortencia Fuchs MD in OV> 04/10/24 1149 DD/ 1337 TD/TT: 02/11/24 1355 Pneumatic System Conveyor Operator: Assessment & Plan Assessment & Plan (1) Cervical cancer screening: Comment: pap done 11/28/20= neg w neg hpv Code(s): Z12.4 - Encounter for screening for malignant neoplasm of cervix Category: Medical (2) Well woman exam with routine gynecological exam: Code(s): Z01.419 - Encounter for gynecological examination (general) (routine) without abnormal findings Category: Medical (3) Menorrhagia: Comment: Her periods are gradually getting heavier and crampier since the of her child 3 years ago. Code(s): N92.0 - Excessive and frequent menstruation with regular cycle Category: Medical (4) Fibroids: Comment: One 2.7 cm intramural fibroid seen on ultrasound 02/11/2024. Code(s): D21.9 - Benign neoplasm of connective and other soft tissue, unspecified Category: Medical (5) Breast cancer screening: Code(s): Z12.39 - Encounter for other screening for malignant neoplasm of breast Category: Medical (6) Perimenopause: Code(s): N95.1 - Menopausal and female climacteric states Category: Medical (7) Status post sleeve gastrectomy: Code(s): Z90.3 - Acquired absence of stomach [part of] Category: Surgical (8) Overweight with body mass index (BMI) 25.0-29.9: Comment: Has lost weight through efforts with diet exercise bariatric surgery and currently on Zepbound Code(s): E66.3 - Overweight Category: Medical Plan -----Discussed in this visit the following: healthy balanced diet, regular and consistent exercise, getting recommended health screens, doing the best she can for her particular health concerns, kegel exercises, pap smear screening and followup recommendations, mammography screening and SBE, normal changes in cycles in her life stage--- .---Discussed normal changes that happen premenapausally, perimenapausally, and postmenopausally, and ways to handle them. Discussed the normal variation, and the range of experiences that women experience. Discussed nutrition, health, need for exercise, both weight-bearing and aerobic. Also discussed the normal changes that happen with vaginal mucosal thinning and sensitivity, and simple more natural ways of handling these challenges. Discussed the range of experiences and the normal changes that occur and experiences and the options that many women sometimes consider to manage their symptoms. She will be due for her mammogram in March. Discussed whether not she wanted to have another ultrasound to see if the fibroid was any bigger she sometimes gets blood clots when she has her period heavy at the start so she is curious she had an ultrasound in 2023 the so the fibroid was 2.7 cm so we will have a visit after the ultrasound to review. Reviewed the whole range of normal experiences the women experience with menopause and the options that is some women choose to deal with them. She is not interested in hormones and in any pills if she does not need them. Orders: Orders US pelvic and transvaginal Today D21.9 - Benign neoplasm of connective and other soft tissue, unspecified, N92.0 - Excessive and frequent menstruation with regular cycle Coding Level of Care Code Est Pt Prev Care 40-64y(68486) Diagnoses Cervical cancer screening Z12.4 Well woman exam with routine gynecological exam Z01.419 Menorrhagia N92.0 Fibroids D21.9 Breast cancer screening Z12.39 Perimenopause N95.1 Status post sleeve gastrectomy Z90.3 Overweight with body mass index (BMI) 25.0-29.9 E66.3
--- OUTSIDE RECORDS SUMMARY | 2025-02-09 15:31 | XMS_ITS | Clinical Summary ---
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 Encounters Date Type Department Care Team Description 01/25/2025 Telephone [facility] [address] [place] [address] Schwab-QuilesSapna brito, DDS 01/24/2025 Travel 12/30/2024 Telephone [facility] [address] [place] [address] Schwab-Quiles, Sapna, DDS 12/23/2024 Travel 12/06/2024 9:30 AM EDT Office Visit [facility] [address] [place] [address] Schwab-Quiles, Sapna, DDS Symptomatic irreversible pulpitis (Primary Dx) 12/05/2024 Travel 11/15/2024 1:00 PM EDT Office Visit [facility] [address] [place] [address] Reji Rooney, DDS Gingival recession, localized (Primary Dx); Symptomatic [...] Care Team (Late st Contact Info) Description 03/27/2025 8:00 AM EST Office Visit [facility] [address] [place] [address] Sapna Banks, DDS [address] [place] [address] Health Maintenance Due Date Last Done Comments [...]
== END 2025-02-09 11:31 | disposition home or self-care (01) ==
LOC: HO.HWSM 10:33
PROVIDERS: PCP Internal Medicine; Visit Provider Advanced Practice Midwife
DX: Z01.419 Encounter for gynecological examination (general) (routine) without abnormal findings (principal); N92.0 Excessive and frequent menstruation with regular cycle; D21.9 Benign neoplasm of connective and other soft tissue, unspecified; Z12.39 Encounter for other screening for malignant neoplasm of breast; N95.1 Menopausal and female climacteric states; Z90.3 Acquired absence of stomach [part of]; E66.3 Overweight
CPT/HCPCS: 99396

== ENCOUNTER → 2025-02-09 10:33 | Outpatient (BNVA) | payer MEDICAID, SELFPAY | PROVIDERS: PCP Internal Medicine; Visit Provider Advanced Practice Midwife | DX: Z01.419 Encounter for gynecological examination (general) (routine) without abnormal findings (principal) | CPT/HCPCS: 99396 ==

== ENCOUNTER 2025-03-15 11:11 | Outpatient (REF) | payer MEDICAID, SELFPAY ==
--- NOTE | ~2025-03-15 | US_ITS ---
EXAMINATION: US PELVIS TRANSABDOMINAL AND TRANSVAGINAL HISTORY: N92.0 - Excessive and frequent menstruation with regular cycle COMPARISON: Comparison is made with the prior examination dated 02/11/2024. TECHNIQUE: Transabdominal and endovaginal real-time 2D gerber-scale ultrasound was performed. FINDINGS: Uterus: The uterus is normal in size, measuring 7.9 x 4.0 x 5.3 cm. Myometrium has a normal echotexture. Again seen is a posterior fibroid measuring 2.0 x 1.6 x 1.8 cm (previously 2.7 x 2.0 x 2.4 cm). Endometrium: The endometrial stripe measures 6 mm in thickness. There are nabothian cysts in the cervix. Right ovary: The right ovary measures 3.6 x 2.2 x 3.3 cm. The right ovary is normal in size and echotexture. Left ovary: The left ovary measures 3.4 x 2.0 x 1.6 cm. The left ovary is normal in size and echotexture. Pelvic fluid: none. US/US pelvic and transvaginal IMPRESSION: Interval decrease in size of the previously seen posterior uterine fibroid as described. Electronically signed by: Onel Mcguire MD 03/15/2025 12:37 PM [facility]
--- OUTSIDE RECORDS SUMMARY | 2025-03-15 11:14 | XMS_ITS | Encounter Summary ---
Author Organization [employer] [facility] Address [address] [place] [address] Care Team Providers Care Knowledge Architect Name Role Phone Unavailable Primary Care Provider Unavailabl e Reason for Visit * Reason Comments Med Refill Encounter Details Date Type Department Care Team (Late st Contact Info) Description 02/17/[address] [facility] [address] [place] [address] Sapna Banks DDS [address] [place], [place] [phone] Social History Tobacco Use Types Packs/Day Years [...] encounter Miscellaneous Notes * Telephone Encounter - Sapna Banks DDS - 02/20/2025 8:04 AM EST Approving, but needs appt for additional refills. documented in this encounter Plan of Treatment Upcoming Encounters Date Type Department Care Team (Late st Contact Info) Description 03/27/2025 8:00 AM EST Office Visit [facility] [address] [place] [address] Sapna Banks DDS [address] [place] [address] documented as of this encounter Visit Diagnoses Not on filedocumented in this encounter
--- OUTSIDE RECORDS SUMMARY | 2025-03-15 11:14 | XMS_ITS | Clinical Summary ---
Author Organization [employer] Address [address] [facility] [address] [place] [address] Care Team Providers Care Sox Analyst Name Role Phone Unavailable Primary Care Provider Unavailabl e Allergies Active Allergy Reactions Criticality Noted Date Comments Pollen Extract 12/06/2024 Medications acetaminophen (Tylenol 8 Hour) 650 MG ER tablet TAKE 1 TAB ORAL EVERY 8 HOURS IF NEEDED FOR MODERATE PAIN FOR 10 DAYS. DO NOT CRUSH/CHEW/S PLIT. 15 tablet Active acetaminophen (Tylenol 8 Hour) 650 MG ER tablet Take 1 tablet (650 mg) by mouth every 8 (eight) hours if needed for moderate pain for up to 10 days. Do not crush, chew, or split. 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 [address] [place] [address] Sapna Banks, DDS 01/25/[address] [facility] [address] [place] [address] Sapna Banks, DDS 01/24/2025 Travel 12/30/[address] [facility] [address] [place] [address] Sapna Banks DDS 12/23/2024 Travel from Last 3 Months Social History [...] Description 03/27/2025 8:00 AM EST Office Visit [facility] [address] [place] [address] Schwab-QuilesSapna brito, DDS [address] [place], [place] [phone] Health Maintenance Due Date Last Done Comments [...] on patient's age to complete this topic Insurance [place] [employer] [place]
--- OUTSIDE RECORDS SUMMARY | 2025-03-15 11:14 | XMS_ITS | Clinical Summary ---
Author Organization [facility] Address [address] [place] [address] Care Team Providers Care Trimming Cutter Machine Name Role Phone Unavailable Primary Care Provider [...] on file Sexual Orientation Not on file Plan of Treatment Health Maintenance Due Date [...] Depression Screening 03/23/2024 COVID-19 Vaccine ( - 2024-2 6 season) 2024 Influenza Vaccine (#1) 2024 RSV [...]
== END 2025-03-15 11:12 | disposition home or self-care (01) ==
LOC: HO.US 11:11
PROVIDERS: PCP Internal Medicine; Visit Provider Advanced Practice Midwife
DX: N92.0 Excessive and frequent menstruation with regular cycle (principal); D21.9 Benign neoplasm of connective and other soft tissue, unspecified
CPT/HCPCS: 76830; 76856

== ENCOUNTER → 2025-03-15 11:16 | Outpatient (BNV) | payer MEDICAID, SELFPAY | PROVIDERS: PCP Internal Medicine; Visit Provider Radiology Diagnostic Radiology | DX: N92.0 Excessive and frequent menstruation with regular cycle (principal) | CPT/HCPCS: 76830; 76856 ==